=== PATIENT | female | born 1935 | race Caucasian/White ===

== ENCOUNTER 2018-04-21 11:25 | Inpatient (IN) | payer MEDICARE ==
[~2018-04-21] VITALS: Ht 154.9 cm; Wt 52.5 kg
[2018-04-21] VITALS (13 sets, daily range): BP systolic 85–129; BP diastolic 38–55; BMI 19.6
[2018-04-21] MEDS ORDERED: XANAX0.25 MG PO (11:39)
[2018-04-21] MEDS ORDERED: ADVAIR HFA [SP]12 GM INH (11:40)
[2018-04-21] MEDS ORDERED: AMOXICILLIN500 M1 PO (11:40)
[2018-04-21] MEDS ORDERED: BAYER CHEWABLE81 MG PO (11:40)
[2018-04-21] MEDS ORDERED: BACLOFEN10 MG PO (11:40)
[2018-04-21] MEDS ORDERED: CALCIUM 500 +1 EAC3 PO (11:41)
[2018-04-21] MEDS ORDERED: CELEBREX200 MG PO (11:41)
[2018-04-21] MEDS ORDERED: CELEXA40 MG PO (11:41)
[2018-04-21] MEDS ORDERED: FERROUS SULFAT325 MG PO (11:41)
[2018-04-21] MEDS ORDERED: NEURONTIN600 MG PO (11:42)
[2018-04-21] MEDS ORDERED: GAVISCON LIQUI355 ML PO ×2 (11:42→13:51)
[2018-04-21] MEDS ORDERED: IPRAT-ALBUT 0.5-3 ML UPD (11:44)
[2018-04-21] MEDS ORDERED: NORCO 10-325 TA1 TAB PO (11:44)
[2018-04-21] MEDS ORDERED: PRINIVIL10 MG PO (11:47)
[2018-04-21] MEDS ORDERED: MUCUS RELIEF400 MG PO ×2 (11:48→11:50)
[2018-04-21] MEDS ORDERED: MUCINEX600 MG PO (11:49)
[2018-04-21] MEDS ORDERED: MAALOX ADVANCE355 ML PO (11:49)
[2018-04-21] MEDS ORDERED: PATANOL 0.1 % OP5 ML RIGHT EYE (11:50)
[2018-04-21] MEDS ORDERED: SYNTHROID150 MCG PO (11:50)
[2018-04-21] MEDS ORDERED: PREDNISONE20 MG PO (11:51)
[2018-04-21 12:12] LABS: BASOPHILS 0.2 % (0-2); EOSINOPHILS 0 % (0-7); HEMATOCRIT 33.2 % (36.0-48.0); HEMOGLOBIN 10.1 g/dL (12-16); IMMATURE GRANULOCYTES 0.2 % (0-5); LYMPHOCYTES 9.6 % (15-50); MCH 25.8 pg (26.0-34.0); MCHC 30.4 g/dL (31.0-37.0); MCV 84.9 fL (80.0-100.0); MEAN PLATELET VOLUME 8.5 fL (7.4-10.4); PLATELET COUNT 203 10x3/uL (130-400); RBC 3.91 10x6/uL (4.00-5.40); RDW 16.5 % (11.5-14.5); WBC 6.2 10x3/uL (4.8-10.8)
[2018-04-21 12:21] LABS: INR 0.93 (0.85-1.17)
[2018-04-21 12:26] LABS: ALBUMIN 2.7 g/dL (3.4-5.0); ALKALINE PHOSPHATASE 66 U/L (46-116); ALT (SGPT) 20 U/L (10-68); BILIRUBIN - TOTAL 0.26 mg/dL (0.2-1.3); CALC OSMOLALITY 271 mosm/kg (275-300); CALCIUM 8.8 mg/dL (8.5-10.1); CARBON DIOXIDE 31.8 mmol/L (21.0-32.0); CHLORIDE - SERUM 98 mmol/L (98-107); CREATININE - SERUM 0.8 mg/dL (0.6-1.3); GLUCOSE 108 mg/dL (74-106); POTASSIUM - SERUM 4.7 mmol/L (3.5-5.1); PROTEIN - SERUM 6.1 g/dL (6.4-8.2); SODIUM 134 mmol/L (136-145); UREA NITROGEN 22 mg/dL (7-18); eGFR NON AFRICAN AMERICAN 72 mL/min (90-120)
[2018-04-21 12:38] LABS: CKMB 3.3 U/L (0.0-3.6); CREATINE KINASE 34 UL (21-215); TROPONIN-I 0.018 ng/mL (0.000-0.060)
--- NOTE | 2018-04-21 13:36 | NUR ---
PT RECEIVED. ADMITTED. DR AMAYA AND DR QUINTANILLA NOTIFIED. ASSESSMENT COMPLETE PER FLOW SHEET. WILL CONTINUE TO MONITOR
--- NOTE | 2018-04-21 13:59 | NUR ---
PT FAMILY CALLED GIVEN UPDATE. STATED WAS ON THE WAY TO THE HOSPITAL AT THIS TIME AND BRINGING DNR PAPERWORK
--- NOTE | 2018-04-21 14:30 | NUR ---
FAMILY AT BEDSIDE. GIVEN UPDATE. COPY OF WILL PLACED IN CHART PT FULL CODE AT THIS TIME.
--- NOTE | 2018-04-21 15:40 | NUR ---
REASSESSMENT COMPLETE PER FLOW SHEET. VSS. NO NEW CHANGES
--- NOTE | 2018-04-21 16:12 | MORECARE ---
CASE MANAGEMENT DISCHARGE SUMMARY PATIENT: NILA HARDEN UNIT: [id number] ADM DATE: 04/21/18 AGE: 82 : 33 SEX: F ROOM/BED: D.2315 AUTHOR: RERE BAIRES PHYSICIAN: REFERRING PHYSICIAN: KARRI AMAYA MD DATE OF SERVICE: 04/21/18 Discharge Plan Patient Name: NILA HARDEN Facility: [facility]:[place] : 1935 Planned Disposition: Anticipated Discharge Date: Discharge Date: Expected LOS: Initial Reviewer: [email or web address] Initial Review Date: 04/21/2018 Generated: 04/21/18 5:12 pm Patient Name: NILA HARDEN Page [id number] at 1612 All edits/amendments must be made on the electronic document DICTATION DATE: 04/21/18 1612 METAL NEUTRALIZER: CODI 04/21/18 161 RPT#: [id number] DC DATE: STATUS: ADM IN [facility] [address] [place] [address] END OF REPORT
--- NOTE | 2018-04-21 16:45 | MORECARE ---
CASE MANAGEMENT DISCHARGE SUMMARY PATIENT: NILA HARDEN UNIT: [id number] ADM DATE: 04/21/18 AGE: 82 : 33 SEX: F ROOM/BED: D.2315 AUTHOR: RERE BAIRES PHYSICIAN: REFERRING PHYSICIAN: KARRI AMAYA MD DATE OF SERVICE: 04/21/18 Discharge Plan Patient Name: NILA HARDEN Facility: [facility]:[place] : 1935 Planned Disposition: Anticipated Discharge Date: Discharge Date: Expected LOS: Initial Reviewer: [email or web address] Initial Review Date: 04/21/2018 Generated: 04/21/18 5:45 pm Comments DCP- Discharge Planning Updated by [email or web address]: Ana Zhu on 04/21/18 3:[address] CM attempted to meet with patient for intake assessment. Patient is currently on ventilator sedated and no family available at this time. CM will continue to follow and assist as needed with discharge planning/ needs. Last DP export: 04/21/18 3:12 p Patient Name: NILA HARDEN Page 71551 at 1645 All edits/amendments must be made on the electronic document DICTATION DATE: 04/21/181644 DIGITAL PRODUCT SPECIALIST: CODI 04/21/181644 RPT#: [id number] DC DATE: STATUS: ADM IN [facility] [address] [place] [address] END OF REPORT
--- NOTE | 2018-04-21 18:40 | NUR ---
UPPER PARTIAL DENTURE REMOVED PLACED IN RETAINER CUP AT BEDSIDE. UNABLE TO REMOVE BOTTOM DENTURE R/T ETT
--- NOTE | 2018-04-21 18:59 | NUR ---
ASSESSMENT COMPLETE PER FLOW SHEET. VSS. NO NEW CHANGES O2 VIA VENT 40% ORAL ENDOTRACH CARE ADM. WILL CONTINUE TO MONITOR
[2018-04-22] VITALS (26 sets, daily range): BP systolic 85–153; BP diastolic 46–78; Ht 154.9 cm; Wt 52.5 kg
[2018-04-22 04:54] LABS: BASOPHILS 0.2 % (0-2); EOSINOPHILS 0 % (0-7); HEMOGLOBIN 8.2 g/dL (12-16); IMMATURE GRANULOCYTES 0.2 % (0-5); LYMPHOCYTES 10.5 % (15-50); MCH 25.8 pg (26.0-34.0); MCHC 31.1 g/dL (31.0-37.0); MEAN PLATELET VOLUME 8.5 fL (7.4-10.4); MONOCYTES 8.8 % (2-11); NEUTROPHILS 80.3 % (40-80); PLATELET COUNT 210 10x3/uL (130-400); RBC 3.18 10x6/uL (4.00-5.40); RDW 16.6 % (11.5-14.5); WBC 4.7 10x3/uL (4.8-10.8)
[2018-04-22 05:04] LABS: HEMATOCRIT 26.4 % (36.0-48.0)
[2018-04-22 05:06] LABS: ALKALINE PHOSPHATASE 45 U/L (46-116); BILIRUBIN - TOTAL 0.22 mg/dL (0.2-1.3); CALC OSMOLALITY 270 mosm/kg (275-300); CALCIUM 7.8 mg/dL (8.5-10.1); CARBON DIOXIDE 29.5 mmol/L (21.0-32.0); CHLORIDE - SERUM 98 mmol/L (98-107); CREATININE - SERUM 0.7 mg/dL (0.6-1.3); GLUCOSE 89 mg/dL (74-106); MAGNESIUM - SERUM 1.4 mg/dL (1.8-2.4); PHOSPHOROUS 3.5 mg/dL (2.5-4.9); POTASSIUM - SERUM 4.8 mmol/L (3.5-5.1); PRO BNP 1016 pg/mL (0-450); PROTEIN - SERUM 4.8 g/dL (6.4-8.2); SODIUM 134 mmol/L (136-145); UREA NITROGEN 25 mg/dL (7-18); eGFR NON AFRICAN AMERICAN 84 mL/min (90-120)
[2018-04-22 05:07] LABS: ALBUMIN 1.9 g/dL (3.4-5.0); ALT (SGPT) 14 U/L (10-68)
--- NOTE | 2018-04-22 10:00 | NUR ---
0700 CALM WHILE ON VENT OF 40% O2 PROPOFOL AT 25MCG/MIN ASSESSMENT COMPLETE
--- NOTE | 2018-04-22 10:02 | NUR ---
0900 SON AT BEDSIDE PROVIDED UPDAT0. 0900 PATIENTS SON AT BEDSIDE UPDATE GIVEN PER HIS REQUEST EMOTIONAL SUPPORT PROVIDED STATES HE WILL RETURN AROUND NOON TO SPEAK WITH DR QUINTANILLA AND NOTE MOTHERS PROGRESS
--- NOTE | 2018-04-22 12:10 | NUR ---
1100 REPOSITIONED IN BED
--- NOTE | 2018-04-22 12:10 | NUR ---
1200 DR QUINTANILLA MAKING CHANGES ON VENT SIMV 14 FIO2 30% TV 450 PS 10 P 5
--- NOTE | 2018-04-22 12:11 | NUR ---
1211 DOPPLER STUDY OF BLE IN PROGRESS
--- NOTE | 2018-04-22 13:31 | NUR ---
1300 DR QUINTANILLA SPEAKING WITH SON
--- NOTE | 2018-04-22 21:37 | NUR ---
REPOSITIONED FOR COMFORT. ORAL CARE PROVIDED.
[2018-04-22 21:55] LABS: APPEARANCE CLEAR (CLEAR); BILIRUBIN NEGATIVE (NEGATIVE); COLOR YELLOW (YELLOW); GLUCOSE NEGATIVE (NEGATIVE); KETONE NEGATIVE (NEGATIVE); NITRITE NEGATIVE (NEGATIVE); PROTEIN TRACE mg/dL (NEGATIVE); SPECIFIC GRAVITY 1.015 (1.005-1.020); UROBILINOGEN NORMAL (NORMAL)
--- NOTE | 2018-04-22 23:07 | NUR ---
REASSESSMENT COMPLETE. REPOSITIONED FOR COMFORT. ORAL CARE PROVIDED. SAFETY MEASURES IN PLACE.
[2018-04-23] VITALS (24 sets, daily range): BP systolic 101–175; BP diastolic 47–78
--- NOTE | 2018-04-23 02:49 | NUR ---
COMPLETE BED BATH GIVEN. LINENS CHANGED. BLACK COLORED BM NOTED. FORMED. TOLERATED WELL. ORAL CARE PROVIDED.
[2018-04-23 04:28] LABS: BASOPHILS 0.2 % (0-2); EOSINOPHILS 0.4 % (0-7); HEMATOCRIT 24.8 % (36.0-48.0); HEMOGLOBIN 7.8 g/dL (12-16); IMMATURE GRANULOCYTES 0.2 % (0-5); LYMPHOCYTES 22.6 % (15-50); MCH 25.8 pg (26.0-34.0); MCHC 31.5 g/dL (31.0-37.0); MCV 82.1 fL (80.0-100.0); MEAN PLATELET VOLUME 8.3 fL (7.4-10.4); NEUTROPHILS 63.6 % (40-80); PLATELET COUNT 182 10x3/uL (130-400); RBC 3.02 10x6/uL (4.00-5.40); RDW 17.2 % (11.5-14.5); WBC 4.5 10x3/uL (4.8-10.8)
[2018-04-23 04:42] LABS: CALC OSMOLALITY 266 mosm/kg (275-300); CARBON DIOXIDE 28.4 mmol/L (21.0-32.0); CHLORIDE - SERUM 99 mmol/L (98-107); CREATININE - SERUM 0.7 mg/dL (0.6-1.3); MAGNESIUM - SERUM 1.7 mg/dL (1.8-2.4); POTASSIUM - SERUM 4.2 mmol/L (3.5-5.1); SODIUM 133 mmol/L (136-145); UREA NITROGEN 21 mg/dL (7-18); eGFR NON AFRICAN AMERICAN 84 mL/min (90-120)
[2018-04-23 04:43] LABS: GLUCOSE 70 mg/dL (74-106)
--- NOTE | 2018-04-23 09:31 | NUR ---
0700 ASSESSMENT COMPLETE NO DISTRESS NOTED REMAINS ON VENT AT AT 30% PROPOFOL INFUSIONG AT 35
--- NOTE | 2018-04-23 09:33 | NUR ---
0900 SON AT BEDSIDE ASKING FOR UPDATE ASNWERED ALL FAMILY QUESTIONS
--- NOTE | 2018-04-23 12:27 | NUR ---
DR. QUINTANILLA AT BEDSIDE, UPDATE GIVEN TO FAMILY
--- NOTE | 2018-04-23 14:29 | MORECARE ---
CASE MANAGEMENT DISCHARGE SUMMARY PATIENT: NILA HARDEN UNIT: [id number] ADM DATE: 04/21/18 AGE: 82 : 33 SEX: F ROOM/BED: D.2315 AUTHOR: RERE BAIRES PHYSICIAN: REFERRING PHYSICIAN: KARRI AMAYA MD DATE OF SERVICE: 04/23/18 Discharge Plan Patient Name: NILA HARDEN Facility: [facility] : 1935 Planned Disposition: Anticipated Discharge Date: Discharge Date: Expected LOS: Initial Reviewer: [email or web address] Initial Review Date: 04/23/2018 Generated: 04/23/18 3:29 pm Comments DCP- Discharge Planning Updated by [email or web address]: Ana Zhu on 04/21/18 3:[address] CM attempted to meet with patient for intake assessment. Patient is currently on ventilator sedated and no family available at this time. CM will continue to follow and assist as needed with discharge planning/ needs. DCPIA - Discharge Planning Initial Assessment Updated by [email or web address]: Ana Zhu on 04/23/18 2:26 pm * Is the patient Alert and Oriented? Yes * How many steps to enter\exit or inside your home? * PCP Dr. Garcia - [place] * Pharmacy [facility] * Preadmission Environment Home Alone * ADLs Independent * Other Equipment walker, cane, home 02, nebulizer, * List name and contact numbers for known caregivers / representatives who currently or will assist patient after discharge: Wm Tonya [facility] [phone] Hai Tonya [facility] [phone] * Verbal permission to speak to the caregivers and representatives has been obtained from the patient. N/A * Community resources currently utilized Home Health * Please name any agencies selected above. [facility] * Additional services required to return to the preadmission environment? No * Can the patient safely return to the preadmission environment? Yes * Has this patient been hospitalized within the prior 30 days at any hospital? No Last DP export: 04/21/18 3:45 p Patient Name: NILA AHRDEN Page 24919 at 1429 All edits/amendments must be made on the electronic document DICTATION DATE: 04/23/181428 [employer]: CODI 04/23/181428 RPT#: [id number] DC DATE: STATUS: ADM IN [facility] [address] [place] [address] END OF REPORT
--- NOTE | 2018-04-23 14:40 | MORECARE ---
CASE MANAGEMENT DISCHARGE SUMMARY PATIENT: NILA HARDEN UNIT: [id number] ADM DATE: 04/21/18 AGE: 82 : 33 SEX: F ROOM/BED: D.2315 AUTHOR: DEQUAN,DOC PHYSICIAN: REFERRING PHYSICIAN: KARRI AMAYA MD DATE OF SERVICE: 04/23/18 Discharge Plan Patient Name: NILA HARDEN Facility: [facility]:[place] : 1935 Planned Disposition: Anticipated Discharge Date: Discharge Date: Expected LOS: Initial Reviewer: [email or web address] Initial Review Date: 04/23/2018 Generated: 04/23/18 3:40 pm Comments DCP- Discharge Planning Updated by [email or web address]: Ana Zhu on 04/23/18 1:[address] Patient Name: NILA HARDEN Admission Status: ER Accout number: [id number] Admission Date: 04-21-2018 : 1935 Admission Diagnosis: Attending: KARRI AMAYA Current LOS: 2 Anticipated DC Date: Planned Disposition: Primary Insurance: MEDICARE A & B Discharge Planning Comments: CM met with patient's son Wm Harden [phone] at bedside. Patient is currently still on ventilator and sedated. Wm stated that patient does live alone and has an assistant infant toddler teacher that stays with her around the clock. He states that the assistant infant toddler teacher is there for house cleaning and to assist with fall prevention. Wm states that she has [facility] that comes out and sets up meds. He is interested in possible in nursing care / skilled care. He stated that patient was in [facility] about 6 weeks ago for pain management. Patient may need SNF upon discharge. CM will continue to monitor and assist as needed with discharge planning / needs. Pier Hand: Ana Zhu DCP- Discharge Planning Updated by [email or web address]: Ana Zhu on 04/21/18 3:[address] CM attempted to meet with patient for intake assessment. Patient is currently on ventilator sedated and no family available at this time. CM will continue to follow and assist as needed with discharge planning/ needs. DCPIA - Discharge Planning Initial Assessment Updated by [email or web address]: Ana Zhu on 04/23/18 2:26 pm * Is the patient Alert and Oriented? Yes * How many steps to enter\exit or inside your home? * PCP Dr. Garcia - [place] * Pharmacy [facility] * Preadmission Environment Home Alone * ADLs Independent * Other Equipment walker, cane, home 02, nebulizer, * List name and contact numbers for known caregivers / representatives who currently or will assist patient after discharge: Wm Harden - val[place] - [phone] Hai shaw- [phone] * Verbal permission to speak to the caregivers and representatives has been obtained from the patient. N/A * Community resources currently utilized Home Health * Please name any agencies selected above. [facility] * Additional services required to return to the preadmission environment? No * Can the patient safely return to the preadmission environment? Yes * Has this patient been hospitalized within the prior 30 days at any hospital? No Last DP export: 04/23/18 1:29 p Patient Name: NILA HARDEN Page [id number] at 1440 All edits/amendments must be made on the electronic document DICTATION DATE: 04/23/181438 AUTOMOTIVE REFINISH TECHNICIAN: CODI 04/23/18 143 RPT#: [id number] DC DATE: STATUS: ADM IN [facility] [address] [place] [address] END OF REPORT
--- NOTE | 2018-04-23 16:39 | EC ---
PATIENT:NILA HARDEN DATE OF SERVICE: 04/21/18 SEX: F MEDICAL RECORD: [id number] DATE OF : [birth year] [facility]ATION:[facility] AGE OF PATIENT: 82 ADMISSION DATE: 04/21/18 REFERRING PHYSICIAN: INTERPRETING PHYSICIAN: SARAH HARDY MD ECHOCARDIOGRAM REPORT ECHO CHARGES 4 ECHO COMPLETE Date: 04/22/18 CLINICAL DIAGNOSIS: SOB ECHOCARDIOGRAPHIC MEASUREMENTS (adult normal given) AC root (d.<3.7cm) 3.3 cm LV Septum d (<1.2 cm> 1.2 cm Valve Excursion 1.4 cm LV Septum (systole) 1.4 cm Left Atria (s.<4.0cm> 3.0 cm LVPW d(<1.2cm) 1.0 cm RV (d.<2.3cm) 2.7 cm LVPW (sytole) 1.0 cm LV diastole(<5.6CM) 3.6 cm MV E-F(>70mm/sec) cm LV systole 2.8 cm LVOT Diameter 1.4 cm MV exc.(>10mm) cm Est.ejection fraction (50-75%) % DOPPLER: LVIT cm/sec A 142 cm/sec E 109 cm/sec LA cm/sec RVSP 36.5 mmHg LVOT 122 cm/sec AOP1/2T m/s Asc. Ao 159 cm/sec RVOT 82 cm/sec RA cm/sec PA 94 cm/sec AV Gradient Peak 10.1 mmHg AV Mean 5.2 mmHg AV Area 1.4 cm MV Gradient Peak 8.8 mmHg MV Mean 4.5 mmHg MV Area cm COMMENTS: Filenet Admin: Stalin HAMILTON Body Service Team Member: Mohamud Hardy TAPE# PACS Pericardial Effusion N DATE OF SERVICE: 04/22/2018 FINDINGS: 1. Left ventricular chamber size is within normal limits. Left ventricular systolic function is normal. Overall ejection fraction is estimated at 60%. 2. Left atrium, right atrium, and right ventricle chamber sizes are within normal limit. 3. Valvular structures have normal structure and motion. 4. Doppler interrogation reveals only trace tricuspid regurgitation. No other valvular insufficiency or stenosis. Pulmonary systolic pressure is normal, ECHOCARDIOGRAM REPORT [id number] NILA HARDEN estimated at 36 mmHg. 5. No evidence of pericardial effusion or left ventricular thrombus. TRANSINT:[id number] Voice Confirmation ID: [id number] DOCUMENT ID: [id number] SARAH HARDY MD at 1639 CC: [id number] DICTATION DATE: 04/22/18 1618 PHYSIOTHERAPIST'S ASSISTANT: 04/22/18 1808 ADM IN [place] [id number] [place] [address]
--- NOTE | 2018-04-23 19:38 | NUR ---
1420 FAMILY AT BEDSIDE EMOTIONAL SUPPORT GIVEN
--- NOTE | 2018-04-23 19:39 | NUR ---
8560 DR LAM RECOMMENDS NO TO WEAN OFF VENT TODAY
--- NOTE | 2018-04-23 19:40 | NUR ---
1820 SMALL DARK STOOL NOTED SPECIMEN SENT TO LAB.
--- NOTE | 2018-04-23 22:40 | NUR ---
LAB CALLED, INFORMED 1 UNIT PRBC'S READY FOR PT
[2018-04-24] VITALS (24 sets, daily range): BP systolic 109–176; BP diastolic 47–78
--- NOTE | 2018-04-24 | NUR ---
PT HAD x1 DARK GREEN SEMISOLID BM, PARTIAL BATH AND COMPLETE LINEN CHANGE, VSS, WILL CONTINUE TO ASSESS
--- NOTE | 2018-04-24 03:00 | NUR ---
REASSESSMENT COMPLETED PER FLOW SHEET, PT OPENS EYES AND FOLLOWS COMMANDS, NO DISTRESS NOTED, VSS, WILL CONTINUE TO MONITOR
[2018-04-24 05:12] LABS: BASOPHILS 0.4 % (0-2); EOSINOPHILS 0.4 % (0-7); HEMATOCRIT 30.8 % (36.0-48.0); HEMOGLOBIN 10.3 g/dL (12-16); IMMATURE GRANULOCYTES 0.2 % (0-5); LYMPHOCYTES 26.5 % (15-50); MCH 26.8 pg (26.0-34.0); MCHC 33.4 g/dL (31.0-37.0); MCV 80.2 fL (80.0-100.0); MEAN PLATELET VOLUME 8.7 fL (7.4-10.4); MONOCYTES 15.7 % (2-11); NEUTROPHILS 56.8 % (40-80); PLATELET COUNT 185 10x3/uL (130-400); RBC 3.84 10x6/uL (4.00-5.40); RDW 16.7 % (11.5-14.5); WBC 5.3 10x3/uL (4.8-10.8)
[2018-04-24 05:30] LABS: CALC OSMOLALITY 263 mosm/kg (275-300); CALCIUM 7.9 mg/dL (8.5-10.1); CHLORIDE - SERUM 96 mmol/L (98-107); CREATININE - SERUM 0.6 mg/dL (0.6-1.3); GLUCOSE 83 mg/dL (74-106); POTASSIUM - SERUM 4.6 mmol/L (3.5-5.1); SODIUM 131 mmol/L (136-145); UREA NITROGEN 18 mg/dL (7-18); eGFR NON AFRICAN AMERICAN > 90 mL/min (90-120)
--- NOTE | 2018-04-24 07:30 | NUR ---
0700 ROUNDING ON PATIENT ASSESSMENT COMPLETE PROPOFOL INFUSING AT 35MCG/MIN NO DISTRESS NOTED
--- NOTE | 2018-04-24 07:48 | NUR ---
0730 DECREASED PROPOFOL TO 20MCG OR 5.5ML
--- NOTE | 2018-04-24 08:28 | NUR ---
6496 UPDATED SON, SAMMY, VIA PHONE ON CHANGES IN HIS MOTHERS CONDITION. INFORMED HIM OF PLANS CONCERNING VENT. SAID HE WILL NOT BE ABLE TO VISIT TODAY AND TO LET HIS MOTHER KNOW
--- NOTE | 2018-04-24 09:25 | NUR ---
0930 TURNED OFF SEDATION PER RT REQUEST
--- NOTE | 2018-04-24 09:27 | NUR ---
0927 CPAP TRIAL BGCAN ON VENT. VENT SET ON SPONTANIOUS PROPOFOL REMAINS OFF
--- NOTE | 2018-04-24 10:01 | NUR ---
NUTRITION F/U NURSING REPORTS PT TOLERATING PULMOCARE @ 30 CC/HR. REMAINS ON VENT. WILL CONTINUE TO MONITOR PT PROGRESS. RD FOLLOWING
--- NOTE | 2018-04-24 11:54 | NUR ---
1100 DR LAM ROUNDING ON PATIENT NOTING RESULTS OF CCPAP
--- NOTE | 2018-04-24 14:29 | NUR ---
1300 REMAIINS CALM ON CPAP BREATHING 16 BREATHS/MIN
--- NOTE | 2018-04-24 16:02 | NUR ---
1600 TURNED OFF SEDATION PER RESP TECH REQUEST. VENT NOW ON SPONTANIOUS
--- NOTE | 2018-04-24 18:28 | NUR ---
1630 TURNED SEDATION BACK ON. VENT SWITCHED TO SIMV AT 30%
--- NOTE | 2018-04-24 18:30 | NUR ---
1800 FAMILY MEMBER LEFT THE UNIT
--- NOTE | 2018-04-24 21:00 | NUR ---
vss no s/s of distress, meds given, pt had 10 residuals, will turn tf up at midnight to 40/ml which is goal rate. assessment is complete, all safety measures in place will contiue to monitor and will note and chart any changes.
[2018-04-25] VITALS (24 sets, daily range): BP systolic 113–166; BP diastolic 46–94
--- NOTE | 2018-04-25 00:02 | NUR ---
vss no s/s of distress, all safety measures in place, pt suctioned, all needs met at this time will continue to monitor.
--- NOTE | 2018-04-25 01:24 | NUR ---
vss no s/s of distress, pt tolerating vent well. all safety measures remain in place. will continue to monitor.
--- NOTE | 2018-04-25 04:53 | NUR ---
no changes, pt resting well and tolerating vent well, positioned for comfort, no changes with vent settings. will continue to monitor.
--- NOTE | 2018-04-25 06:00 | NUR ---
pt resting well no s/s of distress, diprovan on hold, residuals 10ml and returned, all needs met will continue to monitor.
--- NOTE | 2018-04-25 09:27 | NUR ---
NUTRITION F/U PT REMAINS ON VENT, DIPRIVAN AND TUBE FEEDS OFF FOR POSSIBLE EXTUBATION. WILL CONTINUE TO MONITOR PT PROGRESS. PROVIDE TUBE FEEDS IF RESUMED. RD FOLLOWING
--- NOTE | 2018-04-25 09:34 | NUR ---
0700 PT RECIEVED ALERT AND ABLE TO FOLLOW COMMANDS, ON VENT, SPONTANOUS MODE, OGT WITH PULMOCARE INFUSING, L AND R WRIST PIV IN PLACE WITH LR 50ML/HR, MADISON DRAINING YELLOW URINE, ABLE TO ANSWER YES AND NO QUESTIONS BY NODDING HEAD, DENIES PAIN, CALL LIGHT WITHIN REACH, REPOSITIONED 0900 REPOSITIONED, SPOKE WITH CHAVEZ IN PHARMACY FOR VANC 0930 RECIEVED VANC FROM PHARMACY
--- NOTE | 2018-04-25 13:25 | NUR ---
1100 [id number] EXTUBATED TO 3L NC AND RESTRAINTS REMOVED, FAMILY HERE FOR VISITATION AND UPDATED BY DR QUINTANILLA
--- NOTE | 2018-04-25 17:16 | NUR ---
1500 REPOSITIONED, TOLERATING CLEAR LIQUIDS WELL 1700 ATE 75% OF FULL LIQUID DINNER WITH NO DIFFICULTIES, REPOSITIONED
--- NOTE | 2018-04-25 18:41 | NUR ---
PT STATES SHE HIT L WRIST IV ON SIDE RAIL, BEGAN BLEEDING, IV DCD, DRESSING APPLIED, BATH AND LINEN CHANGE DONE
--- NOTE | 2018-04-25 22:36 | NUR ---
VSS NO S/S OF DISTRESS CALL LIGHT IN REACH, PT STATES SHE IS SCARED TO GO TO SLEEP BECAUSE SHE IS AFRAID SHE WILL STOP BREATHING, I REASSURED PT SHE WAS BEING MONITORED VERY CLOSELY AND ALARMS WOULD GO OFF TO NOTIFY ID HER OXYGEN LEVEL STARTED TO DROP, PT STATED THAT MAKES HER FEEL GOOD. MEDS WERE GIVEN, ASSESSMENT IS COMPLETE, ALL SAFETY MEASURES IN PLACE, WILL NOTE AND CHART ANY CHANGES.
[2018-04-26] VITALS (16 sets, daily range): BP systolic 109–187; BP diastolic 52–95
[2018-04-26 04:00] LABS: BASOPHILS 0 % (0-2); EOSINOPHILS 0 % (0-7); HEMOGLOBIN 10.5 g/dL (12-16); IMMATURE GRANULOCYTES 0.2 % (0-5); MCH 26.1 pg (26.0-34.0); MCHC 31.8 g/dL (31.0-37.0); MCV 82.1 fL (80.0-100.0); MEAN PLATELET VOLUME 8.2 fL (7.4-10.4); MONOCYTES 5.3 % (2-11); NEUTROPHILS 78.5 % (40-80); PLATELET COUNT 216 10x3/uL (130-400); RBC 4.02 10x6/uL (4.00-5.40); RDW 16.8 % (11.5-14.5); WBC 4.9 10x3/uL (4.8-10.8)
[2018-04-26 04:15] LABS: CALC OSMOLALITY 267 mosm/kg (275-300); CALCIUM 8.3 mg/dL (8.5-10.1); CARBON DIOXIDE 31.8 mmol/L (21.0-32.0); CHLORIDE - SERUM 99 mmol/L (98-107); CREATININE - SERUM 0.7 mg/dL (0.6-1.3); GLUCOSE 98 mg/dL (74-106); MAGNESIUM - SERUM 1.9 mg/dL (1.8-2.4); PHOSPHOROUS 3.7 mg/dL (2.5-4.9); POTASSIUM - SERUM 4.6 mmol/L (3.5-5.1); SODIUM 133 mmol/L (136-145); UREA NITROGEN 19 mg/dL (7-18); eGFR NON AFRICAN AMERICAN 84 mL/min (90-120)
--- NOTE | 2018-04-26 04:23 | NUR ---
pt rested good during the night, electrolytes do not need to be replaced. pt positioned for comfort, lake emptied and iv pumps cleared, will continue to monitor.
--- NOTE | 2018-04-26 09:15 | NUR ---
UP TO CHAIR VAI PT
--- NOTE | 2018-04-26 10:50 | NUR ---
CALLED TO RELAY PATIENTS ELEVATED BP, NO NEW ORDERS AT PRESENT, HE WILL ADDRESS UPON ARRIVAL
--- NOTE | 2018-04-26 11:54 | NUR ---
PATIENT DOES WELL WITH A CLOTH WRAPED AROUND SPOON TO INCREASE GIRTH OF HANDLE, CALLED PT TO SEE IF THEY HAVE ACCESS TO MODIFIED EATING EQUIPMENT.
--- NOTE | 2018-04-26 17:44 | NUR ---
REPORT CALLED TO MED III NURSE
--- NOTE | 2018-04-26 17:48 | NUR ---
ATTEMPTED TO CALL SAMMY HARDEN ON CONTACT LIST, MAILBOX FULL AND COULD NOT LEAVA A MESSAGE TO TELL HIM PATIENT MOVING TO NEW ROOM
--- NOTE | 2018-04-26 18:15 | NUR ---
RECIEVED TO ROOM 1202 FROM ICU VIA BED. IV TO R HAND PATENT. O2 3L NC IN USE. MADISON PATENT DRAINING PINKISH COLORED URINE. SCD'S IN USE TO BILAT LEGS. CALL LIGHT WITHIN REACH. DENIES ANY NEEDS AT THIS TIME.
--- NOTE | 2018-04-26 19:29 | NUR ---
PATIENT RESTING IN BED WITH EYES CLOSED AND NO S/S OF DISTRESS. BED IN LOWEST POSITION AND CALL LIGHT WITHIN REACH. ENCOURAGED THE PATIENT TO CALL IF SHE HAS NEEDS. WILL CONTINUE TO MONITOR.
[2018-04-27 04:24] VITALS: BP 121/61
[2018-04-27 06:28] LABS: BASOPHILS 0 % (0-2); EOSINOPHILS 0 % (0-7); HEMATOCRIT 33.2 % (36.0-48.0); HEMOGLOBIN 10.3 g/dL (12-16); IMMATURE GRANULOCYTES 0.1 % (0-5); LYMPHOCYTES 10.2 % (15-50); MCH 26.1 pg (26.0-34.0); MEAN PLATELET VOLUME 8.6 fL (7.4-10.4); MONOCYTES 4.6 % (2-11); NEUTROPHILS 85.1 % (40-80); RBC 3.95 10x6/uL (4.00-5.40); RDW 17.2 % (11.5-14.5)
[2018-04-27 06:50] LABS: MCV 84.1 fL (80.0-100.0); PLATELET COUNT 303 10x3/uL (130-400); WBC 6.8 10x3/uL (4.8-10.8)
[2018-04-27 06:51] LABS: CALC OSMOLALITY 266 mosm/kg (275-300); CALCIUM 8.5 mg/dL (8.5-10.1); CARBON DIOXIDE 33.3 mmol/L (21.0-32.0); CHLORIDE - SERUM 95 mmol/L (98-107); CREATININE - SERUM 0.6 mg/dL (0.6-1.3); GLUCOSE 108 mg/dL (74-106); POTASSIUM - SERUM 4.9 mmol/L (3.5-5.1); SODIUM 131 mmol/L (136-145); UREA NITROGEN 21 mg/dL (7-18); eGFR NON AFRICAN AMERICAN > 90 mL/min (90-120)
--- NOTE | 2018-04-27 07:40 | NUR ---
PT RESTING IN BED EYES CLOSED NO SIGNS OF DISTRESS NOTED, O2 @ 3L ON NASAL CANNULA, FAMILY AT BEDSIDE, EASY RISE AND FALL OF CHEST CL IN REACH
[2018-04-27 08:57] VITALS: BP 131/60
[2018-04-27 11:00] VITALS: BP 131/60
[2018-04-27 15:00] VITALS: BP 131/57
--- NOTE | 2018-04-27 15:40 | NUR ---
DENIES ANY NEEDS AT THIS TIME.
[2018-04-27 19:45] VITALS: BP 100/52
--- NOTE | 2018-04-27 20:48 | NUR ---
PATIENT RESTING IN BED AND DENIES NEEDS AT THIS TIME. ADMINISTERED MEDS PER ORDERS. BED IN LOWEST POSITION AND CALL LIGHT WITHIN REACH. ENCOURAGED THE PATIENT TO CALL IF SHE HAS NEEDS.
--- NOTE | 2018-04-27 23:18 | NUR ---
PATIENT RESTING IN BED WITH EYES CLOSED AND NO S/S OF DISTRESS. WILL CONTINUE TO MONITOR
[2018-04-27 23:55] VITALS: BP 161/70
[2018-04-28 03:55] VITALS: BP 130/49
[2018-04-28 06:55] LABS: BASOPHILS 0 % (0-2); EOSINOPHILS 0.1 % (0-7); HEMATOCRIT 30.2 % (36.0-48.0); HEMOGLOBIN 9.5 g/dL (12-16); IMMATURE GRANULOCYTES 0.3 % (0-5); LYMPHOCYTES 12.8 % (15-50); MCH 26.2 pg (26.0-34.0); MCHC 31.5 g/dL (31.0-37.0); MCV 83.2 fL (80.0-100.0); MEAN PLATELET VOLUME 8.5 fL (7.4-10.4); MONOCYTES 7.9 % (2-11); NEUTROPHILS 78.9 % (40-80); PLATELET COUNT 322 10x3/uL (130-400); RBC 3.63 10x6/uL (4.00-5.40); RDW 17.2 % (11.5-14.5); WBC 7.7 10x3/uL (4.8-10.8)
[2018-04-28 07:09] LABS: CALC OSMOLALITY 267 mosm/kg (275-300); CALCIUM 8.5 mg/dL (8.5-10.1); CARBON DIOXIDE 34.9 mmol/L (21.0-32.0); CHLORIDE - SERUM 95 mmol/L (98-107); CREATININE - SERUM 0.6 mg/dL (0.6-1.3); GLUCOSE 107 mg/dL (74-106); POTASSIUM - SERUM 4.4 mmol/L (3.5-5.1); SODIUM 132 mmol/L (136-145); UREA NITROGEN 21 mg/dL (7-18); eGFR NON AFRICAN AMERICAN > 90 mL/min (90-120)
[2018-04-28 08:35] VITALS: BP 118/55
--- NOTE | 2018-04-28 10:35 | MORECARE ---
CASE MANAGEMENT DISCHARGE SUMMARY PATIENT: NILA HARDEN UNIT: [id number] ADM DATE: 04/21/18 AGE: 82 : 33 SEX: F ROOM/BED: D.1202 AUTHOR: DEQUAN,DOC PHYSICIAN: REFERRING PHYSICIAN: KARRI AMAYA MD DATE OF SERVICE: 04/28/18 Discharge Plan Patient Name: NILA HARDEN Facility: [facility]:[place] : 1935 Planned Disposition: Anticipated Discharge Date: Discharge Date: Expected LOS: Initial Reviewer: [email or web address] Initial Review Date: 04/23/2018 Generated: 04/28/18 11:35 am Comments DCP- Discharge Planning Updated by [email or web address]: Jolynn Palma on 04/28/18 9:[address] WM HARDEN- SON- CONTACT PHONE NUMBER [phone]. DCP- Discharge Planning Updated by [email or web address]: Jolynn Palma on 04/28/18 9:[address] LATE ENTRY 0845 CM RECEIVED 3 MESSAGES FROM WM HARDEN, SON, OF THE PATIENT. RETURNED THE PHONE CALLS HOWEVER HIS VOICE MAIL WAS FULL. CM WENT TO THE PATIENT'S ROOM. HER SON ARRIVED JUST CM ENTERED AND SPOKE WITH THE PATIENT. THE SON WANTED TO DISCUSS HIS MOTHER'S DISCHARGE DATE AND PLAN. CM ADVISED IN REVIEW OF THE LAST MD NOTES NO DATE HAD BEEN DOCUMENTED. HE IS INTERESTED IN A SHELTER SETTING. THE PATIENT HAS BEEN TO [facility]VI[facility].EXPLAINED ACUTE REHAB AND SKILLED REHAB SERVICSE. SON FEELS SKILLED WOULD BE MORE APPROPRIATE AND IN THE [place] ARE[place]. CM PROVIDED THE SON [place] FORM OF REHABS IN [facility] AND IN THE [place] AREA WHERE SHE LIVES. HE WILL ADVISE CM OF HIS CHOICE . CM FOLLOWING TO ASSIST W/ DISCHARGE PLANNING. DCP- Discharge Planning Updated by [email or web address]: Ana Zhu on 04/23/18 1:[address] Patient Name: NILA HARDEN Admission Status: ER Accout number: [id number] Admission Date: 04-21-2018 : 1935 Admission Diagnosis: Attending: KARRI AMAYA Current LOS: 2 Anticipated DC Date: Planned Disposition: Primary Insurance: MEDICARE A & B Discharge Planning Comments: CM met with patient's son Wm Harden [phone] at bedside. Patient is currently still on ventilator and sedated. Wm stated that patient does live alone and has an showroom sales assistant that stays with her around the clock. He states that the showroom sales assistant is there for house cleaning and to assist with fall prevention. Wm states that she has [facility] that comes out and sets up meds. He is interested in possible in nursing care / skilled care. He stated that patient was in [facility] about 6 weeks ago for pain management. Patient may need SNF upon discharge. CM will continue to monitor and assist as needed with discharge planning / needs. Cushion Former: Ana Zhu DCP- Discharge Planning Updated by [email or web address] Zhu on 04/21/18 3:[address] CM attempted to meet with patient for intake assessment. Patient is currently on ventilator sedated and no family available at this time. CM will continue to follow and assist as needed with discharge planning/ needs. DCPIA - Discharge Planning Initial Assessment Updated by [email or web address]: Ana Zhu on 04/23/18 2:26 pm * Is the patient Alert and Oriented? Yes * How many steps to enter\exit or inside your home? * PCP Dr. Garcia - [place] * Pharmacy [facility] * Preadmission Environment Home Alone * ADLs Independent * Other Equipment walker, cane, home 02, nebulizer, * List name and contact numbers for known caregivers / representatives who currently or will assist patient after discharge: Wm shaw - [phone] Hai shaw- [phone] * Verbal permission to speak to the caregivers and representatives has been obtained from the patient. N/A * Community resources currently utilized Home Health * Please name any agencies selected above. [facility] * Additional services required to return to the preadmission environment? No * Can the patient safely return to the preadmission environment? Yes * Has this patient been hospitalized within the prior 30 days at any hospital? No Last DP export: 04/23/18 1:40 p Patient Name: NILA HARDEN Page [phone] at 1035 All edits/amendments must be made on the electronic document DICTATION DATE: 04/28/18 103 WEBSPHERE PORTAL ARCHITECT: CODI 04/28/18 1034 RPT#: [id number] DC DATE: STATUS: ADM IN [facility] [address] [place] [address] END OF REPORT
[2018-04-28 11:38] VITALS: BP 112/58
--- NOTE | 2018-04-28 14:16 | NUR ---
RN ROUNDING DONE WITH PATIENT RESTING WITH EYES CLOSED, RESP ARE EVEN AND NON LABORED. P.T HERE NOW TO WORK WITH PATIENT.
--- NOTE | 2018-04-28 15:20 | NUR ---
SPOKE TO DR CHAMBERS VIA TELEPHONE; AUTHORIZED MADISON REMOVAL
[2018-04-28 15:37] VITALS: BP 118/66
--- NOTE | 2018-04-28 19:09 | NUR ---
OT NOTE: PT COMPLETED BED MOB WITH CGA. PT COMPLETED EOB SITTING WITH SBA. PT COMPLETED SIT TO STAND WITH CGA. PT COMPLETED FACE WASH WITH SET UP. PT COMPLETED BUE AROM AT EOB. THANK YOU, TERRY SEGOVIA
[2018-04-28 20:00] VITALS: BP 122/67; BP 85/39
--- NOTE | 2018-04-28 20:07 | NUR ---
PATIENT RESTING IN BED WITH NO S/S OF DISTRESS AND DENIES NEEDS AT THIS TIME. BED IN LOWEST POSITION AND CALL LIGHT WITHIN REACH. ENCOURAGED THE PATIENT TO CALL IF SHE HAS NEEDS. WILL CONTINUE TO MONITOR.
--- NOTE | 2018-04-28 20:30 | NUR ---
PT PLACED ON BEDPAN, VOIDED AND HAD LIQUIDY STOOL, PT REMOVED FROM BEDPAN, PT CLEANED UP, PINK PAD AND BLUE CHUX CHANGED, PT DENIES FURTHR NEEDS OR PAIN, BED IN LOW POSITION, SIDE RAILS X 2, CALL LIGHT IN REACH
[2018-04-29] VITALS (7 sets, daily range): BP systolic 105–126; BP diastolic 52–78
--- NOTE | 2018-04-29 02:05 | NUR ---
PATIENT RESTING IN BED WITH EYES CLOSED AND NO S/S OF DISTRESS. WILL CONTINUE TO MONITOR.
--- NOTE | 2018-04-29 03:40 | NUR ---
MIKY, RESPIRATORY INFORMED ME THAT PT NEEDED TO GET ON THE BEDPAN, THIS RN TO ROOM, PT PLACED ON BEDPAN, PT INST TO USE CALL LIGHT WHEN FINISHED, CALL LIGHT TO HAND
--- NOTE | 2018-04-29 03:50 | NUR ---
PT PRIOR AUTHORIZATION NURSE LIGHT, PT FINISHED, PT REMOVED FROM BEDPAN, ANJALI CARE DONE, PT REPOSITIONED IN BED, VS OBTAINED, DENIES FURTHER NEEDS OR PAIN AT THIS TIME
[2018-04-29 06:58] LABS: BASOPHILS 0 % (0-2); EOSINOPHILS 0 % (0-7); HEMATOCRIT 31.2 % (36.0-48.0); HEMOGLOBIN 9.9 g/dL (12-16); IMMATURE GRANULOCYTES 0.3 % (0-5); LYMPHOCYTES 8.4 % (15-50); MCH 26.3 pg (26.0-34.0); MCHC 31.7 g/dL (31.0-37.0); MEAN PLATELET VOLUME 8.6 fL (7.4-10.4); MONOCYTES 5.6 % (2-11); NEUTROPHILS 85.7 % (40-80); PLATELET COUNT 357 10x3/uL (130-400); RBC 3.76 10x6/uL (4.00-5.40); RDW 17.4 % (11.5-14.5); WBC 8.8 10x3/uL (4.8-10.8)
[2018-04-29 07:32] LABS: ANION GAP 10.4 mmol/L (8-16); CALCIUM 8.6 mg/dL (8.5-10.1); CARBON DIOXIDE 32.4 mmol/L (21.0-32.0); POTASSIUM - SERUM 4.8 mmol/L (3.5-5.1)
[2018-04-29 07:37] LABS: CREATININE - SERUM 0.8 mg/dL (0.6-1.3)
--- NOTE | 2018-04-29 08:23 | NUR ---
PT HERE F0R RESP FAILURE AND PNEUMONIA FOR THIS VISIT PT DENIES NEEDS AT THIS TIME WILL CONTINUE TO MONITOR
--- NOTE | 2018-04-29 10:43 | MORECARE ---
CASE MANAGEMENT DISCHARGE SUMMARY PATIENT: NILA HARDEN UNIT: [id number] ADM DATE: 04/21/18 AGE: 82 : 33 SEX: F ROOM/BED: D.1202 AUTHOR: DEQUAN,DOC PHYSICIAN: REFERRING PHYSICIAN: KARRI AMAYA MD DATE OF SERVICE: 04/29/18 Discharge Plan Patient Name: NILA HARDEN Facility: [facility]:[place] : 1935 Planned Disposition: Anticipated Discharge Date: Discharge Date: Expected LOS: Initial Reviewer: [email or web address] Initial Review Date: 04/23/2018 Generated: 04/29/18 11:43 am Comments DCP- Discharge Planning Updated by [email or web address]: Jodi Pa on 04/29/18 9:[address] Patient Name: NILA HARDEN Admission Status: ER Accout number: [id number] Admission Date: 04-21-2018 : 1935 Admission Diagnosis:ACUTE RESPIRATORY FAILURE WITH HYPOXIA Attending: KARRI AMAYA Current LOS: 8 Anticipated DC Date: Planned Disposition: Primary Insurance: MEDICARE A & B Discharge Planning Comments: CM MET WITH PATIENT AND IM SIGNED. WAITING TO SEE IF ABLE TO GO TO INPT REHAB. PT AND OT EVALS DONE. Grinder Setup Operator: Jodi Pa DCP- Discharge Planning Updated by [email or web address]: Jolynn Palma on 04/28/18 9:[address] WM HARDEN- SON- CONTACT PHONE NUMBER [phone]. DCP- Discharge Planning Updated by [email or web address]: Jolynn Palma on 04/28/18 9:[address] LATE ENTRY 0845 CM RECEIVED 3 MESSAGES FROM WM HARDEN, SON, OF THE PATIENT. RETURNED THE PHONE CALLS HOWEVER HIS VOICE MAIL WAS FULL. CM WENT TO THE PATIENT'S ROOM. HER SON ARRIVED JUST CM ENTERED AND SPOKE WITH THE PATIENT. THE SON WANTED TO DISCUSS HIS MOTHER'S DISCHARGE DATE AND PLAN. CM ADVISED IN REVIEW OF THE LAST MD NOTES NO DATE HAD BEEN DOCUMENTED. HE IS INTERESTED IN A RESIDENTIAL SETTING. THE PATIENT HAS BEEN TO [facility] PREVIOUSLY.EXPLAINED ACUTE REHAB AND SKILLED REHAB SERVICSE. SON FEELS SKILLED WOULD BE MORE APPROPRIATE AND IN THE [place] AREA. CM PROVIDED THE SON WITHTHE POC FORM OF REHABS IN THE [facility] AND IN THE [place] WHERE SHE LIVES. HE WILL ADVISE CM OF HIS CHOICE . CM FOLLOWING TO ASSIST W/ DISCHARGE PLANNING. DCP- Discharge Planning Updated by [email or web address]: Ana Zhu on 04/23/18 1:[address] Patient Name: NILA HARDEN Admission Status: ER Accout number: [id number] Admission Date: 04-21-2018 : 1935 Admission Diagnosis: Attending: KARRI AMAYA Current LOS: 2 Anticipated DC Date: Planned Disposition: Primary Insurance: MEDICARE A & B Discharge Planning Comments: CM met with patient's son Wm Harden [phone] at bedside. Patient is currently still on ventilator and sedated. Wm stated that patient does live alone and has an faculty research assistant that stays with her around the clock. He states that the faculty research assistant is there for house cleaning and to assist with fall prevention. Wm states that she has [facility] that comes out and sets up meds. He is interested in possible in nursing care / skilled care. He stated that patient was in [facility] about 6 weeks ago for pain management. Patient may need SNF upon discharge. CM will continue to monitor and assist as needed with discharge planning / needs. Grinder Setup Operator: Ana Zhu DCP- Discharge Planning Updated by [email or web address]: Ana Zhu on 04/21/18 3:[address] CM attempted to meet with patient for intake assessment. Patient is currently on ventilator sedated and no family available at this time. CM will continue to follow and assist as needed with discharge planning/ needs. DCPIA - Discharge Planning Initial Assessment Updated by [id number]: Ana Zhu on 04/23/18 2:26 pm * Is the patient Alert and Oriented? Yes * How many steps to enter\exit or inside your home? * PCP Dr. Garcia - [place] * Pharmacy [facility] * Preadmission Environment Home Alone * ADLs Independent * Other Equipment walker, cane, home 02, nebulizer, * List name and contact numbers for known caregivers / representatives who currently or will assist patient after discharge: Wm shaw - [phone] Hai shaw- [phone] * Verbal permission to speak to the caregivers and representatives has been obtained from the patient. N/A * Community resources currently utilized Home Health * Please name any agencies selected above. [facility] * Additional services required to return to the preadmission environment? No * Can the patient safely return to the preadmission environment? Yes * Has this patient been hospitalized within the prior 30 days at any hospital? No Coverage Notice Reviewer: [id number] Danielle Pa Notice Issued Date-Time: 04/29/2018 10:38 Notice Type: IM Discharge Notice Notice Delivered To: Patient Relationship to Patient: Self Food Service Attendant Name: Delivery Method: HAND - Hand Delivered Sonam Days: Prior Verbal Notification: Recipient Understood Notice: Yes Recipient Signature: Yes Med Rec Note Co-signed by Attending: Coverage Notice Comment: Last DP export: 04/28/18 9:35 a Patient Name: NILA HARDEN Page [phone] at 1043 All edits/amendments must be made on the electronic document DICTATION DATE: 04/29/18 1042 MINERAL MIXER: CODI 04/29/18 1042 RPT#: [id number] DC DATE: STATUS: ADM IN [facility] [address] [place] [address] END OF REPORT
--- NOTE | 2018-04-29 11:50 | NUR ---
OT NOTE: PT PERFORMED BED MOB WITH MIN/MOD ASSIST TODAY; AMB APPROX 8-10 FT WITH MIN ASSIST, RW, GAIT BELT, AND IV. PT FATIGUES EASILY AND IS CURRENTLY VERY WEAK. SHE WILL BENEFIT FROM CONTINNUED THERAPY. PERFORMED GROOMING TASKS WITH SET UP FROM SEATED POSITION. KIA BURGOS, OTR/L
--- NOTE | 2018-04-29 13:45 | MORECARE ---
CASE MANAGEMENT DISCHARGE SUMMARY PATIENT: NILA HARDEN UNIT: [id number] ADM DATE: 04/21/18 AGE: 82 : 33 SEX: F ROOM/BED: D.1202 AUTHOR: DEQUANDOC PHYSICIAN: REFERRING PHYSICIAN: KARRI AMAYA MD DATE OF SERVICE: 04/29/18 Discharge Plan Patient Name: NILA HARDEN Facility: [facility]:[place] : 1935 Planned Disposition: Anticipated Discharge Date: Discharge Date: Expected LOS: Initial Reviewer: [email or web address] Initial Review Date: 04/23/2018 Generated: 04/29/18 2:45 pm Comments DCP- Discharge Planning Updated by [email or web address]: Jodi Pa on 04/29/18 12:[address] Patient Name: NILA HARDEN Admission Status: ER Accout number: [id number] Admission Date: 04-21-2018 : 1935 Admission Diagnosis:ACUTE RESPIRATORY FAILURE WITH HYPOXIA Attending: KARRI AMAYA Current LOS: 8 Anticipated DC Date: Planned Disposition: Primary Insurance: MEDICARE A & B Discharge Planning Comments: IN PATIENT REHAB WILL ACCEPT WHEN PATIENT CAN BE DISCHARGED. SON IS ZEYAD HARDEN, PHONE [phone], CM CALLED AND LET HIM KNOW. STATES PLAN IS HH AFTER DISCHARGED FROM REHAB. Aquatics Director: Jodi Pa DCP- Discharge Planning Updated by [id number]: Jodi Pa on 04/29/18 9:[address] Patient Name: NILA HARDEN Admission Status: ER Accout number: [id number] Admission Date: 04-21-2018 : 1935 Admission Diagnosis:ACUTE RESPIRATORY FAILURE WITH HYPOXIA Attending: KARRI AMAYA Current LOS: 8 Anticipated DC Date: Planned Disposition: Primary Insurance: MEDICARE A & B Discharge Planning Comments: CM MET WITH PATIENT AND IM SIGNED. WAITING TO SEE IF ABLE TO GO TO INPT REHAB. PT AND OT EVALS DONE. Aquatics Director: Jodi Pa DCP- Discharge Planning Updated by [email or web address]: Jolynn Palma on 04/28/18 9:[address] WM HARDEN- SON- CONTACT PHONE NUMBER [phone]. DCP- Discharge Planning Updated by [email or web address]: Jolynn Palma on 04/28/18 9:[address] LATE ENTRY 0845 CM RECEIVED 3 MESSAGES FROM WM HARDEN, SON, OF THE PATIENT. RETURNED THE PHONE CALLS HOWEVER HIS VOICE MAIL WAS FULL. CM WENT TO THE PATIENT'S ROOM. HER SON ARRIVED JUST CM ENTERED AND SPOKE WITH THE PATIENT. THE SON WANTED TO DISCUSS HIS MOTHER'S DISCHARGE DATE AND PLAN. CM ADVISED IN REVIEW OF THE LAST MD NOTES NO DATE HAD BEEN DOCUMENTED. HE IS INTERESTED IN A HALF-WAY SETTING. THE [facility]EXPLAINED ACUTE REHAB AND SKILLED REHAB SERVICSE. SON FEELS SKILLED WOULD BE MORE APPROPRIATE AND IN THE [place] AREA. CM PROVIDED THE SON WITHTHE POC FORM OF REHABS IN THE [facility] AND IN THE [facility] WHERE SHE LIVES. HE WILL ADVISE CM OF HIS CHOICE . CM FOLLOWING TO ASSIST W/ DISCHARGE PLANNING. DCP- Discharge Planning Updated by [id number]: Ana Zhu on 04/23/18 1:[address] Patient Name: NILA HARDEN Admission Status: ER Accout number: [id number] Admission Date: 04-21-2018 : 1935 Admission Diagnosis: Attending: KARRI AMAYA Current LOS: 2 Anticipated DC Date: Planned Disposition: Primary Insurance: MEDICARE A & B Discharge Planning Comments: CM met with patient's son Wm Harden [phone] at bedside. Patient is currently still on ventilator and sedated. Wm stated that patient does live alone and has an assistant womens volleyball coach that stays with her around the clock. He states that the assistant womens volleyball coach is there for house cleaning and to assist with fall prevention. Wm states that she has [facility] that comes out and sets up meds. He is interested in possible in nursing care / skilled care. He stated that [facility] for pain management. Patient may need SNF upon discharge. CM will continue to monitor and assist as needed with discharge planning / needs. Aquatics Director: Ana Zhu DCP- Discharge Planning Updated by [id number]: Ana Zhu on 04/21/18 3:[address] CM attempted to meet with patient for intake assessment. Patient is currently on ventilator sedated and no family available at this time. CM will continue to follow and assist as needed with discharge planning/ needs. DCPIA - Discharge Planning Initial Assessment Updated by [email or web address]: Ana Zhu on 04/23/18 2:26 pm * Is the patient Alert and Oriented? Yes * How many steps to enter\exit or inside your home? * PCP Dr. Garcia - [place] * Pharmacy [facility] * Preadmission Environment Home Alone * ADLs Independent * Other Equipment walker, cane, home 02, nebulizer, * List name and contact numbers for known caregivers / representatives who currently or will assist patient after discharge: Wm Harden valeria [phone] Hai Harden valeria- [phone] * Verbal permission to speak to the caregivers and representatives has been obtained from the patient. N/A * Community resources currently utilized Home Health * Please name any agencies selected above. [facility] * Additional services required to return to the preadmission environment? No * Can the patient safely return to the preadmission environment? Yes * Has this patient been hospitalized within the prior 30 days at any hospital? No Coverage Notice Reviewer: [id number] Danielle Pa Notice Issued Date-Time: 04/29/2018 10:38 Notice Type: IM Discharge Notice Notice Delivered To: Patient Relationship to Patient: Self Quality Assurance Tester Name: Delivery Method: HAND - Hand Delivered Sonam Days: Prior Verbal Notification: Recipient Understood Notice: Yes Recipient Signature: Yes Med Rec Note Co-signed by Attending: Coverage Notice Comment: Last DP export: 04/29/18 9:43 a Patient Name: NILA HARDEN Page [phone] at 1345 All edits/amendments must be made on the electronic document DICTATION DATE: 04/29/18 1345 WIRE HARNESS ASSEMBLER: CODI 04/29/18 1345 RPT#: [id number] DC DATE: STATUS: ADM IN [facility] [address] [place] [address] END OF REPORT
--- NOTE | 2018-04-29 13:58 | NUR ---
Full liquid diet as tolerated. Pt is drinking well. Pt report some swallowing difficulty however she is tolerating liquids. Pt is drinking Ensure. Encouraged pt to drink Ensure Enlive as it has more calories and protein than Ensure clear. Pt agreed. Encouraged good po intake. RD following
--- NOTE | 2018-04-29 14:28 | NUR ---
PATIENT LYING IN BED PLAYING. NO SIGNS OF DISTRESS, NO COMPLAINTS. ALL NEEDS MET AT THIS TIME.
--- NOTE | 2018-04-29 16:05 | NUR ---
OT NOTE: PT COMPLETED HYGIENE AND GROOMING TASKS WITH SBA AT EOB. PT COMPLETED EOB SITTING BALANCE WITH SBA. PT COMPLETED ADL MOBILITY WITH CGA AND SIT TO STAND WITH CGA. PT REQUIRES REST BREAKS. THANK YOU, TERRY SEGOVIA
--- NOTE | 2018-04-29 16:53 | NUR ---
Rehab Note- Acute Inpatient REhab prescreen order received. The patient is a good inpatient acute rehab candidate. Have spoken to ROSANNA Zapata. Will follow at this time and will accept to [facility] Acute Inpatient when medically stable and ready for discharge from the acute hospital. Surekha Wang RN CLinical Liaison, [facility] Rehab
--- NOTE | 2018-04-29 19:50 | NUR ---
ALERT AND ORIENTED. LYING IN BED. RESP EVEN AND NONLABORED. O2 @ 3L/NC. BBS COARSE. SKIN TEAR NOTED TO BUE WITH DRSGS INTACT. RED AREAS NOTED TO FACE. REPORTS SORE THROAT FROM INTUBATION. SCDS ON. DENIES PAIN. SALINE LOCK NOTED TO RT HAND. TALKATIVE WTIH STAFF. NO DISTRESS. SR ELEVATED X2. CL IN REACH. SHARON ALARM ON FOR PT SAFETY.
--- NOTE | 2018-04-29 20:42 | NUR ---
PT BRAND DESIGNER LIGHT, PT PLACED ON BEDPAN, PT VOIDED APPROX 150 MLS OF YELLOW URINE WITH NO DIFFICULTY, PT REMOVED FROM BEDPAN, ANJALI CARE DONE WITH WET WIPES, PT REPOSITIONED IN BED, DENIES FURTHER NEEDS, BED IN LOW POSITION, SIDE RAILS X 2, CALL LIGHT IN REACH
--- NOTE | 2018-04-30 01:00 | NUR ---
PT CAREER DEVELOPMENT SPECIALIST LIGHT, PT PLACED ON BEDPAN, VOIDED WITH NO DIFFICULTY, PT REMOVED FROM BEDPAN, VOIDED APPROX 200 MLS OF CLEAR YELLOW URINE, PT CLEANED UP WITH WET WIPES, BLUE CHUX CHANGED, PT REPOSITIONED IN BED, PT REQUESTED AND SERVED FRESH H20, DENIES FURTHER NEEDS OR PAIN, BED IN LOW POSITION, SIDE RAILS X 2, CALL LIGHT IN REACH, BED ALARM ON AND WORKING PROPERLY
--- NOTE | 2018-04-30 01:39 | NUR ---
HAS RESTED WELL SO FAR TONIGHT. HAS USED BEDPAN A FEW TIMES. NO DISTRESS. USES CALL LIGHT FOR ASSISTANCE. SHARON ON FOR SAFETY. CL IN REACH.
[2018-04-30 04:30] VITALS: BP 127/58
--- NOTE | 2018-04-30 05:47 | NUR ---
LYING IN BED. TALKATIVE WITH STAFF. NO DISTRESS. DENIES PAIN. CL IN REACH.
[2018-04-30 05:57] LABS: BASOPHILS 0 % (0-2); EOSINOPHILS 0 % (0-7); HEMATOCRIT 27.4 % (36.0-48.0); HEMOGLOBIN 8.9 g/dL (12-16); IMMATURE GRANULOCYTES 0.2 % (0-5); LYMPHOCYTES 11.8 % (15-50); MCH 26.4 pg (26.0-34.0); MCHC 32.5 g/dL (31.0-37.0); MCV 81.3 fL (80.0-100.0); MEAN PLATELET VOLUME 8.1 fL (7.4-10.4); MONOCYTES 7.5 % (2-11); NEUTROPHILS 80.5 % (40-80); PLATELET COUNT 340 10x3/uL (130-400); RBC 3.37 10x6/uL (4.00-5.40); RDW 17.3 % (11.5-14.5); WBC 8.6 10x3/uL (4.8-10.8)
[2018-04-30 06:04] LABS: CALC OSMOLALITY 257 mosm/kg (275-300); CALCIUM 8.6 mg/dL (8.5-10.1); CARBON DIOXIDE 31.5 mmol/L (21.0-32.0); CHLORIDE - SERUM 91 mmol/L (98-107); CREATININE - SERUM 0.7 mg/dL (0.6-1.3); GLUCOSE 107 mg/dL (74-106); POTASSIUM - SERUM 4.3 mmol/L (3.5-5.1); SODIUM 127 mmol/L (136-145); UREA NITROGEN 22 mg/dL (7-18); eGFR NON AFRICAN AMERICAN 84 mL/min (90-120)
--- NOTE | 2018-04-30 07:45 | NUR ---
PT SITTING UP IN BED EATING BREAKFAST. CL IN REACH. PT DENIES NEEDS OR PAIN AT THIS TIME. BED IN LOW POSITION. SIDE RAILS X2. RESP EVEN AND UNLABORED. NO SIGNS OF DISTRESS. WCTM
[2018-04-30 09:50] VITALS: BP 119/59
--- NOTE | 2018-04-30 12:05 | NUR ---
PT LYING IN BED. CL IN REACH. PT DENIES NEEDS OR PAIN.
--- NOTE | 2018-04-30 19:06 | NUR ---
OT NOTE: PT COMPLETED HYGIENE AND GROOMING TASKS WITH SET UP. PT COMPLETED BED MOB WITH SPV. PT COMPLETED EOB SITTING BALANCE WITH SBA. PT COMPLETED BUE AROM EXS. THANK YOU, TERRY SEGOVIA
--- NOTE | 2018-04-30 19:30 | NUR ---
PATIENT RESTING IN BED WITH HOB ELEVATED. ALERT AND ORIENTED. PATIENT IS SNOQUALMIE. O2 @ 2L NC. RIGHT HAND IV INFUSING LR @ 50 ML/HR. SKIN TEARS TO RIGHT AND LEFT ARM. SCD'S ON. PATIENT DENIES HAVING ANY PAIN OR NEEDS AT THIS TIME. BED IN LOWEST POSITION. SIDE RAILS UP. SHARON ALARM ON. CALL LIGHT IN REACH. CONTINUE PLAN OF CARE.
[2018-04-30 20:00] VITALS: BP 101/46
[2018-05-01] VITALS: BP 115/47
--- NOTE | 2018-05-01 03:00 | NUR ---
PATIENT RESTING IN BED WITH EYES CLOSED. NO SIGNS OF DISTRESS. BED IN LOWEST POSITION. SIDE RAILS UP. CALL LIGHT IN REACH. CONTINUE PLAN OF CARE.
[2018-05-01 04:00] VITALS: BP 111/51
--- NOTE | 2018-05-01 07:15 | NUR ---
OT NOTE:( LATE ENTRY FOR 04/30/18) BED MOB TRAINING , SITTING BALANCE, AROM EXS. KIA BURGOS, OTR/L
--- NOTE | 2018-05-01 07:30 | NUR ---
PT AAOX4 RESP EVEN AND NONLABORED, NO SIGNS OF DISTRESS NOTED, HARD OF HEARING, NO NEEDS EXPRESSED AT THIS TIME, CL IN REACH
[2018-05-01 07:40] LABS: BASOPHILS 0.1 % (0-2); EOSINOPHILS 0 % (0-7); HEMATOCRIT 28.1 % (36.0-48.0); HEMOGLOBIN 8.9 g/dL (12-16); IMMATURE GRANULOCYTES 0.1 % (0-5); LYMPHOCYTES 9.9 % (15-50); MCHC 31.7 g/dL (31.0-37.0); MCV 82.2 fL (80.0-100.0); MEAN PLATELET VOLUME 8.3 fL (7.4-10.4); MONOCYTES 7.2 % (2-11); NEUTROPHILS 82.7 % (40-80); PLATELET COUNT 406 10x3/uL (130-400); RBC 3.42 10x6/uL (4.00-5.40); RDW 17.7 % (11.5-14.5)
[2018-05-01 07:56] LABS: CALC OSMOLALITY 261 mosm/kg (275-300); CALCIUM 8.3 mg/dL (8.5-10.1); CARBON DIOXIDE 32.4 mmol/L (21.0-32.0); CHLORIDE - SERUM 92 mmol/L (98-107); CREATININE - SERUM 0.7 mg/dL (0.6-1.3); GLUCOSE 92 mg/dL (74-106); POTASSIUM - SERUM 3.9 mmol/L (3.5-5.1); SODIUM 129 mmol/L (136-145); UREA NITROGEN 22 mg/dL (7-18); eGFR NON AFRICAN AMERICAN 84 mL/min (90-120)
--- NOTE | 2018-05-01 09:00 | NUR ---
RESTING QUIETLY IN BED. DENIES ANY NEEDS AT THIS TIME.
[2018-05-01 10:06] VITALS: BP 102/53
[2018-05-01 12:19] VITALS: BP 108/47
[2018-05-01] MEDS ORDERED: ELIQUIS2.5 MG PO (12:37)
[2018-05-01] MEDS ORDERED: BROVANA15 MCG/2 M INH (12:37)
[2018-05-01] MEDS ORDERED: PULMICORT0.5 MG/21 UPD (12:38)
[2018-05-01] MEDS ORDERED: DALIRESP500 MCG PO (12:38)
[2018-05-01] MEDS ORDERED: SINGULAIR10 MG PO (12:38)
--- NOTE | 2018-05-01 14:45 | NUR ---
OT NOTE: BED MOB TRAINING FOR ROLLING AND SUPINE TO SIT. KIA BURGOS, OTR/L
--- NOTE | 2018-05-01 15:19 | NUR ---
IV DC WITH CATH INTACT, DDC INSRUTCTIONS GIVEN PT VERABLIZES UNDERSTANDING PT GOING TO INPATIENT REHAB IN WHEELCHAIR VIA HOSPITAL STAFF IN STABLE CONDITION
--- NOTE | 2018-05-01 15:53 | NUR ---
OT NOTE: PT COMPLETED BED MOB WITH SPV. THANK YOU, TERRY SEGOVIA
--- NOTE | 2018-05-02 16:11 | MORECARE ---
CASE MANAGEMENT DISCHARGE SUMMARY PATIENT: NILA HARDEN UNIT: [id number] ADM DATE: 04/21/18 AGE: 82 : 33 SEX: F ROOM/BED: D.1202 AUTHOR: DEQUAN,DOC PHYSICIAN: REFERRING PHYSICIAN: KARRI AMAYA MD DATE OF SERVICE: 05/02/18 Discharge Plan Patient Name: NILA HARDEN Facility: [facility]:[place] : 1935 Planned Disposition: Anticipated Discharge Date: Discharge Date: 05/01/2018 Expected LOS: Initial Reviewer: [email or web address] Initial Review Date: 04/23/2018 Generated: 05/02/18 5:11 pm Comments DCP- Discharge Planning Updated by [id number]: Jodi Pa on 04/29/18 12:[address] Patient Name: NILA HARDEN Admission Status: ER Accout number: [id number] Admission Date: 04-21-2018 : 1935 Admission Diagnosis:ACUTE RESPIRATORY FAILURE WITH HYPOXIA Attending: KARRI AMAYA Current LOS: 8 Anticipated DC Date: Planned Disposition: Primary Insurance: MEDICARE A & B Discharge Planning Comments: IN PATIENT REHAB WILL ACCEPT WHEN PATIENT CAN BE DISCHARGED. SON IS ZEYAD HARDEN, PHONE [phone], CM CALLED AND LET HIM KNOW. STATES PLAN IS HH AFTER DISCHARGED FROM REHAB. Salesperson Surgical Appliances: Jodi Pa DCP- Discharge Planning Updated by [id number]: Jodi Pa on 04/29/18 9:[address] Patient Name: NILA HARDEN Admission Status: ER Accout number: [id number] Admission Date: 04-21-2018 : 1935 Admission Diagnosis:ACUTE RESPIRATORY FAILURE WITH HYPOXIA Attending: KARRI AMAYA Current LOS: 8 Anticipated DC Date: Planned Disposition: Primary Insurance: MEDICARE A & B Discharge Planning Comments: CM MET WITH PATIENT AND IM SIGNED. WAITING TO SEE IF ABLE TO GO TO INPT REHAB. PT AND OT EVALS DONE. Salesperson Surgical Appliances: Jodi Pa DCP- Discharge Planning Updated by [email or web address]: Jolynn Palma on 04/28/18 9:[address] WM HARDEN- SON- CONTACT PHONE NUMBER [phone]. DCP- Discharge Planning Updated by [id number]: Jolynn Palma on 04/28/18 9:[address] LATE ENTRY 0845 CM RECEIVED 3 MESSAGES FROM WM HARDEN, SON, OF THE PATIENT. RETURNED THE PHONE CALLS HOWEVER HIS VOICE MAIL WAS FULL. CM WENT TO THE PATIENT'S ROOM. HER SON ARRIVED JUST CM ENTERED AND SPOKE WITH THE PATIENT. THE SON WANTED TO DISCUSS HIS MOTHER'S DISCHARGE DATE AND PLAN. CM ADVISED IN REVIEW OF THE LAST MD NOTES NO DATE HAD BEEN DOCUMENTED. HE IS INTERESTED IN A DETENTION SETTING. THE PATIENT HAS BEEN TO [facility] PREVIOUSLY.EXPLAINED ACUTE REHAB AND SKILLED REHAB SERVICSE. SON FEELS SKILLED WOULD BE MORE APPROPRIATE AND IN THE [place] AREA. CM PROVIDED THE SON WITHTHE POC FORM OF REHABS IN THE [facility] AND IN THE [facility] WHERE SHE LIVES. HE WILL ADVISE CM OF HIS CHOICE . CM FOLLOWING TO ASSIST W/ DISCHARGE PLANNING. DCP- Discharge Planning Updated by [id number]: Ana Zhu on 04/23/18 1:[address] Patient Name: NILA HARDEN Admission Status: ER Accout number: [id number] Admission Date: 04-21-2018 : 1935 Admission Diagnosis: Attending: KARRI AMAYA Current LOS: 2 Anticipated DC Date: Planned Disposition: Primary Insurance: MEDICARE A & B Discharge Planning Comments: CM met with patient's son Wm Harden [phone] at bedside. Patient is currently still on ventilator and sedated. Wm stated that patient does live alone and has an assistant winemaker that stays with her around the clock. He states that the assistant winemaker is there for house cleaning and to assist with fall prevention. Wm states that she has [facility] that comes out and sets up meds. He is interested in possible in nursing care / skilled care. He stated that patient was in [facility] about 6 weeks ago for pain management. Patient may need SNF upon discharge. CM will continue to monitor and assist as needed with discharge planning / needs. Salesperson Surgical Appliances: Ana Zhu DCP- Discharge Planning Updated by [email or web address]: Ana Zhu on 04/21/18 3:[address] CM attempted to meet with patient for intake assessment. Patient is currently on ventilator sedated and no family available at this time. CM will continue to follow and assist as needed with discharge planning/ needs. DCPIA - Discharge Planning Initial Assessment Updated by [email or web address]: Ana Zhu on 04/23/18 2:26 pm * Is the patient Alert and Oriented? Yes * How many steps to enter\exit or inside your home? * PCP Dr. Garcia - [place] * Pharmacy [facility] * Preadmission Environment Home Alone * ADLs Independent * Other Equipment walker, cane, home 02, nebulizer, * List name and contact numbers for known caregivers / representatives who currently or will assist patient after discharge: Wm Harden valeria - [phone] Hai shaw [phone] * Verbal permission to speak to the caregivers and representatives has been obtained from the patient. N/A * Community resources currently utilized Home Health * Please name any agencies selected above. [facility] * Additional services required to return to the preadmission environment? No * Can the patient safely return to the preadmission environment? Yes * Has this patient been hospitalized within the prior 30 days at any hospital? No Coverage Notice Reviewer: [id number] Danielle Pa Notice Issued Date-Time: 04/29/2018 10:38 Notice Type: IM Discharge Notice Notice Delivered To: Patient Relationship to Patient: Self Rejector Name: Delivery Method: HAND - Hand Delivered Sonam Days: Prior Verbal Notification: Recipient Understood Notice: Yes Recipient Signature: Yes Med Rec Note Co-signed by Attending: Coverage Notice Comment: Last DP export: 04/29/18 12:45 p Patient Name: NILA HARDEN Page [id number] at 1611 All edits/amendments must be made on the electronic document DICTATION DATE: 05/02/18 1611 ANIMAL REHABILITATOR: CODI 05/02/18 1611 RPT#: [id number] DC DATE:05/01/18 STATUS: DIS IN [facility] [address] [place] [address] END OF REPORT
== END 2018-05-01 16:00 | DRG 207 ==
LOC: D.ER 11:25 → D.ICU 12:25 → D.EDHOLD 12:25 → D.ICU 12:36 → D.M3 04-26 17:49
PROVIDERS: Family Medicine; Internal Medicine Pulmonary Disease; ADMIT Internal Medicine Nephrology
PROC: 5A1955Z Respiratory Ventilation, Greater than 96 Consecutive Hours (ICD-10-PCS; principal; 2018-04-21)
DX: J96.01 Acute respiratory failure with hypoxia (principal); J18.1 Lobar pneumonia, unspecified organism; S22.089A Unspecified fracture of T11-T12 vertebra, initial encounter for closed fracture; E44.0 Moderate protein-calorie malnutrition; Z68.1 Body mass index [BMI] 19.9 or less, adult; J44.1 Chronic obstructive pulmonary disease with (acute) exacerbation; E87.1 Hypo-osmolality and hyponatremia; N17.9 Acute kidney failure, unspecified; J96.02 Acute respiratory failure with hypercapnia; D50.9 Iron deficiency anemia, unspecified; E83.42 Hypomagnesemia; G62.9 Polyneuropathy, unspecified; I10 Essential (primary) hypertension; E03.9 Hypothyroidism, unspecified; S81.012A Laceration without foreign body, left knee, initial encounter; S81.011A Laceration without foreign body, right knee, initial encounter; R53.81 Other malaise

== ENCOUNTER 2018-05-01 16:01 | Inpatient (IN) | payer MEDICARE, BC ==
[~2018-05-01] VITALS: Ht 154.9 cm; Wt 47.2 kg
--- NOTE | 2018-05-01 16:00 | NUR ---
recieved/wc to room 1118a;oriented to room and cl.family at bedside.
--- NOTE | 2018-05-01 16:00 | NUR ---
PT ARRIVED ON UNIT VIA WHEELCHAIR WITH HOSPITAL STAFF. PT ON OXYGEN 2L VIA NC. CL IN REACH. BED IN LOW POSITION. SIDE RAILS X2. RESP EVEN AND UNLABORED. PT VENETIE IRA. WILL CONTINUE TO MONITOR.
[~2018-05-01 16:01] MED LIST: ADVAIR HFA [SP]12 GM INH; AMOXICILLIN500 M1 PO; BACLOFEN10 MG PO; BAYER CHEWABLE81 MG PO; BROVANA15 MCG/2 M INH; CALCIUM 500 +1 EAC3 PO; CELEBREX200 MG PO; CELEXA40 MG PO; DALIRESP500 MCG PO; ELIQUIS2.5 MG PO; FERROUS SULFAT325 MG PO; GAVISCON LIQUI355 ML PO; IPRAT-ALBUT 0.5-3 ML UPD; MAALOX ADVANCE355 ML PO; MUCINEX600 MG PO; MUCUS RELIEF400 MG PO; NEURONTIN600 MG PO; NORCO 10-325 TA1 TAB PO; PATANOL 0.1 % OP5 ML RIGHT EYE; PREDNISONE20 MG PO; PRINIVIL10 MG PO; PULMICORT0.5 MG/21 UPD; SINGULAIR10 MG PO; SYNTHROID150 MCG PO; XANAX0.25 MG PO
--- NOTE | 2018-05-01 17:39 | NUR ---
PT LYING IN BED FAMILY IN ROOM. CL IN REACH. PAPER WORK SIGNED BY SON. JEAN
[2018-05-01 19:00] VITALS: BP 93/49
--- NOTE | 2018-05-01 19:39 | NUR ---
PT A&O PLEASANT, NO NEEDS NOTED, FLUIDS AND CALL LIGHT WITHIN REACH
[2018-05-01 21:38] VITALS: BP 93/49; BMI 19.7
--- NOTE | 2018-05-02 01:28 | NUR ---
PT ASLEEP NO NEEDS NOTED FLUIDS AND CALL LIGHT WITHIN REACH
[2018-05-02 07:30] VITALS: BP 110/52
[2018-05-02 07:50] LABS: ANION GAP 6.4 mmol/L (8-16); BASOPHILS 0.3 % (0-2); CALCIUM 8.9 mg/dL (8.5-10.1); CARBON DIOXIDE 33.6 mmol/L (21.0-32.0); CREATININE - SERUM 0.8 mg/dL (0.6-1.3); EOSINOPHILS 0.9 % (0-7); HEMATOCRIT 28.2 % (36.0-48.0); HEMOGLOBIN 8.8 g/dL (12-16); IMMATURE GRANULOCYTES 0.3 % (0-5); LYMPHOCYTES 18.8 % (15-50); MCHC 31.2 g/dL (31.0-37.0); MCV 83.2 fL (80.0-100.0); MEAN PLATELET VOLUME 8.3 fL (7.4-10.4); NEUTROPHILS 68.7 % (40-80); PLATELET COUNT 406 10x3/uL (130-400); RBC 3.39 10x6/uL (4.00-5.40); RDW 17.6 % (11.5-14.5); WBC 7.9 10x3/uL (4.8-10.8)
--- NOTE | 2018-05-02 10:16 | NUR ---
HAD SHOWER WITH OT THIS AM. DRAINAGE NOTED FROM RUE SKIN TEAR. SHE IS WEAK BUT COOPERATIVE WITH REQUESTS.
[2018-05-02 11:33] VITALS: Ht 154.9 cm; Wt 47.2 kg
--- NOTE | 2018-05-02 12:00 | NUR ---
PATIENT ADMITTED TO REHAB FROM ACUTE FLOOR. SHE IS A CLIENT OF [email or web address] FROM [place], HER PCP IS DR. BURGOS IN [place]. DME AT HOME IS A WALKER, CANE , O2 AND A NEBULIZER. PATIENT HAS A CAREGIVER AT HOME. WILL CONTINUE TO FOLLOW WITH PATIENT.
--- NOTE | 2018-05-02 15:05 | NUR ---
LAYING IN BED WATCHING TV. CALL LIGHT IN REACH
--- NOTE | 2018-05-02 17:27 | NUR ---
LAYING IN BED TALKING TO VISITOR. CALL LIGHT IN REACH
[2018-05-02 19:00] VITALS: BP 79/37
--- NOTE | 2018-05-03 00:10 | NUR ---
DRESSED PATIENTS BILATERAL ARMS WITH CURLIX AND STOCKINEETE TO HELP WITH WEEPING. WCTM.
--- NOTE | 2018-05-03 00:17 | NUR ---
APPLIED MEPILEX BORDER TO TAIL BONE FOR REDDENED AREA.
--- NOTE | 2018-05-03 02:00 | NUR ---
PATIENT ASLEEP WITH EYES CLOSED. RESPIRATIONS EVEN. NO SIGNS OF DISTRESS. CALL LIGHT IN REACH.
[2018-05-03 07:31] VITALS: BP 109/51
--- NOTE | 2018-05-03 09:51 | NUR ---
LAYING QUIETLY IN BED, EYES CLOSED. BUE HAS ABSORBANT DSGS IN PLACE DUE TO SKIN TEARS. USES WC FOR AMBULATION ASST. NO S/S DISTRESS. CALL LIGHT IN REACH. BED IN LOWEST POSITION.
--- NOTE | 2018-05-03 19:04 | NUR ---
GREETED PATIENT AND INTRODUCED MYSELF HER NURSE FOR THE EVENING. PATIENT STATED THAT SHE IS HAVING SOME BACK PAIN BUT WANTS TO WAIT UNTIL LATER TO TAKE MEDICATION. SAID SHE WORKED VERY HARD IN THERAPY TODAY AND IS TIRED. DENIES ANY FURTHER NEEDS AT THIS TIME.
[2018-05-03 19:47] VITALS: BP 97/43
--- NOTE | 2018-05-04 00:24 | NUR ---
PATIENT ASLEEP WITH EYES CLOSED LAYING IN SUPINE POSITION. HOB AT 30 DEGREES. RESPIRATIONS EVEN. NO SIGNS OF DISTRESS. CALL LIGHT IN REACH.
--- NOTE | 2018-05-04 00:58 | NUR ---
DRESSINGS CHANGED ON BILATERAL ARMS. WEEPING SEEMS TO BE IMPROVING FROM LAST DRESSING CHANGE LAST EVENING. WCTM.
--- NOTE | 2018-05-04 04:08 | NUR ---
ASSISTED PATIENT TO BATHROOM USING WHEELCHAIR. PATIENT CLEAR YELLOW URINE. BACK TO BED AND REPOSITIONED FOR COMFORT. FRESH GLASS OF APPLEJUICE BROUGHT TO PATIENT PER HER REQUEST. CALL LIGHT IN REACH. BED IN LOWEST POSITION.
--- NOTE | 2018-05-04 07:23 | NUR ---
RESTING QUIETLY IN BED. NO S/S DISTRESS. CALL LIGHT IN REACH. BED IN LOWEST POSITION.
[2018-05-04 07:30] VITALS: BP 115/61
--- NOTE | 2018-05-04 13:10 | NUR ---
LAYING IN BED WITH EYES CLOSED. NO S/S DISTRESS. STILL WEARING OXYGEN. CALL LIGHT IN REACH
--- NOTE | 2018-05-04 15:39 | NUR ---
ENCOURAGED TO STAY OFF BUTTOCKS DUE TO POTENTIAL FOR SKIN BREAKDOWN.
--- NOTE | 2018-05-04 19:08 | NUR ---
GREETED PATIENT AND INTRODUCED MYSELF HER NURSE FOR THE EVENING. PATIENT IS LAYING IN BED QUIETLY RESTING. DENIES ANY NEEDS AT THIS TIME. CALL LIGHT IN REACH.
[2018-05-04 21:06] VITALS: BP 100/49
--- NOTE | 2018-05-05 00:43 | NUR ---
PATIENT ASLEEP WITH EYES CLOSED LAYING IN SUPINE POSITION. HOB AT 30 DEGREES. RESPIRATIONS EVEN. NO SIGNS OF DISTRESS. 02 AT 2.5 L VIA NC IN USE. CALL LIGHT IN REACH.
--- NOTE | 2018-05-05 02:24 | NUR ---
PATIENT ASLEEP WITH EYES CLOSED LAYING IN SUPINE POSITION. 02 AT 2.5L VIA NC IN USE. HOB AT 30 DEGREES. NO SIGNS OF DISTRESS. CALL LIGHT IN REACH.
--- NOTE | 2018-05-05 03:26 | NUR ---
PATIENT AWAKE AND ASSISTED TO BATHROOM USING WHEELCHAIR. PATIENT BACK TO BED AND REPOSITIONED FOR COMFORT. PATIENT HAD BUMPED HER LEFT ELBOW AND APPLIED A MEPILEX BANDANGE.
--- NOTE | 2018-05-05 07:35 | NUR ---
PATIENT RESTING QUIETLY AT THIS TIME. NO COMPLAINTS. CALL LIGHT WITHIN REACH. WILL CONINTUE TO MONITOR.
--- NOTE | 2018-05-05 07:36 | NUR ---
PT RESTING QUIETLY.CL IN REACH. NO SIGNS OF DISTRESS OR PAIN. BED IN LOW POSITION. SIDE RAILS X2. BED ALARM ON . RESP EVEN AND UNLABORED. WILL CONTINUE TO MONITOR.
[2018-05-05 07:51] LABS: BASOPHILS 0.6 % (0-2); HEMATOCRIT 24.6 % (36.0-48.0); HEMOGLOBIN 7.7 g/dL (12-16); IMMATURE GRANULOCYTES 0.1 % (0-5); LYMPHOCYTES 21.5 % (15-50); MCH 26.5 pg (26.0-34.0); MCHC 31.3 g/dL (31.0-37.0); MCV 84.5 fL (80.0-100.0); MEAN PLATELET VOLUME 8.2 fL (7.4-10.4); MONOCYTES 9.4 % (2-11); NEUTROPHILS 67.4 % (40-80); PLATELET COUNT 380 10x3/uL (130-400); RBC 2.91 10x6/uL (4.00-5.40); WBC 7.2 10x3/uL (4.8-10.8)
[2018-05-05 08:00] VITALS: BP 97/43
[2018-05-05 08:15] LABS: CALC OSMOLALITY 272 mosm/kg (275-300); CARBON DIOXIDE 35.1 mmol/L (21.0-32.0); CHLORIDE - SERUM 98 mmol/L (98-107); CREATININE - SERUM 0.6 mg/dL (0.6-1.3); GLUCOSE 81 mg/dL (74-106); POTASSIUM - SERUM 4.5 mmol/L (3.5-5.1); SODIUM 135 mmol/L (136-145); UREA NITROGEN 24 mg/dL (7-18); eGFR NON AFRICAN AMERICAN > 90 mL/min (90-120)
--- NOTE | 2018-05-05 09:37 | NUR ---
PT BP 112/38 PT IS A SYMPTOMATIC. CL IN REACH. PT ALERT AND ORIENTATED AND DENIES ANY DIFFERENT FEELINGS. WILL CONTINUE TO MONITOR. PT IS TO GET 2 UNITS OF BLOOD TODAY.
--- NOTE | 2018-05-05 11:30 | NUR ---
PT SITTING UP IN BED. CL IN REACH. PT DENIES NEEDS OR PAIN AT THIS TIME. WCTM
--- NOTE | 2018-05-05 14:45 | NUR ---
IV STARTED IN R HAND. TOLERATED WELL. PRE MEDS GIVEN. WILL CONTINUE TO MONITOR.
--- NOTE | 2018-05-05 15:27 | NUR ---
BLOOD TRANSFUSING AT THIS TIME. PT BP 104/44 PULSE 77 AND RESP 16. PT DENIES DISTRESS OR PAIN. NO SIGNS OF DISTRESS OR PAIN. WILL CONTINUE TO MONITOR. CL IN REACH.
--- NOTE | 2018-05-05 18:07 | NUR ---
PT SITTING UP IN BED EATING DINNER. CL IN REACH. BLOOD TRANSFUSION STILL GOING. WILL CONTINUE TO MONITOR. RESP EVEN AND UNLABORED. LAST BP WAS 124/62.
[2018-05-05 19:00] VITALS: BP 124/59
--- NOTE | 2018-05-05 19:45 | NUR ---
PT RESTING IN BED WITH EYES OPEN. ALERT AND ORIENTED X 3. DENIES ACUTE DISCOMFORT. SECOND UNIT OF PRBC'S INFUSING TO RIGHT WRIST IV WITHOUT DIFFICULTY. VSS. NO ADVERSE REACTIONS NOTED. O2 IS ON @ 2.5 LPM PER NC. NO SOB NOTED. SR'S ARE UP X 3 IN BED. CALL LIGHT AND BEDSIDE TABLE ARE WITHIN EASY REACH.
--- NOTE | 2018-05-05 21:45 | NUR ---
BLOOD IS FINISHED AT THIS TIME. VSS. NO ADVERSE REACTION NOTED.
--- NOTE | 2018-05-05 23:06 | NUR ---
PT IS RESTING QUIETLY IN BED WITH EYES CLOSED. RESPS ARE EVEN AND UNLABORED. NO ACUTE DISTRESS NOTED.
[2018-05-06 08:00] VITALS: BP 121/49
--- NOTE | 2018-05-06 08:00 | NUR ---
SHIFT ASSMT COMPLETED;STATES PAIN IN LOW BACK OVER RT HIP,AREA APPEARS SWOLLEN;STATES SHARP PAIN WITH ANY MOVEMENT.BREAKFAST GIVEN.CL IN REACH.
--- NOTE | 2018-05-06 12:00 | NUR ---
SITTING UP IN CHAIR FOR LUNCH.CL IN REACH.
--- NOTE | 2018-05-06 13:48 | NUR ---
Nutrition Follow Up: Pt was asleep at the time of RD visit. Interview deferred. Diet: Regular PO Intake: 67% meal avg BM: 05/05/18 Labs reviewed Meds noted including Prednisone Rec continue current diet. RD following.
[2018-05-06 19:00] VITALS: BP 123/45
--- NOTE | 2018-05-06 19:00 | NUR ---
THE PATIENT WAS LYING IN BED WHEN STAFF ENTERED HER AREA. BED IN LOW POSITION WITH CALL LIGHT WITHIN REACH AND SIDERAILS X2. THE PATIENT DEMONSTRATES APPROPRIATE USE OF A CALL LIGHT. THE PATIENT APPEARS COMFORTABLE WITH NO QUESTIONS OR CONCERNS.
--- NOTE | 2018-05-07 04:38 | NUR ---
PATIENT REQUESTS PAIN MEDICATION. MEDICATION DELIVERED. THE PATIENT HAS NO OTHER COMPLAINTS OR QUESTIONS AT THIS TIME.
[2018-05-07 06:49] LABS: BASOPHILS 0.6 % (0-2); EOSINOPHILS 0.6 % (0-7); HEMATOCRIT 33.9 % (36.0-48.0); HEMOGLOBIN 10.8 g/dL (12-16); IMMATURE GRANULOCYTES 0.2 % (0-5); LYMPHOCYTES 17.8 % (15-50); MCHC 31.9 g/dL (31.0-37.0); MCV 84.8 fL (80.0-100.0); MEAN PLATELET VOLUME 8.2 fL (7.4-10.4); MONOCYTES 10.9 % (2-11); NEUTROPHILS 69.9 % (40-80); PLATELET COUNT 324 10x3/uL (130-400); RDW 16.7 % (11.5-14.5); WBC 8.1 10x3/uL (4.8-10.8)
[2018-05-07 07:05] LABS: CALC OSMOLALITY 269 mosm/kg (275-300); CALCIUM 9.1 mg/dL (8.5-10.1); CARBON DIOXIDE 34.3 mmol/L (21.0-32.0); CHLORIDE - SERUM 97 mmol/L (98-107); CREATININE - SERUM 0.7 mg/dL (0.6-1.3); GLUCOSE 72 mg/dL (74-106); POTASSIUM - SERUM 4.9 mmol/L (3.5-5.1); SODIUM 133 mmol/L (136-145); UREA NITROGEN 26 mg/dL (7-18); eGFR NON AFRICAN AMERICAN 84 mL/min (90-120)
[2018-05-07 07:06] LABS: % SATURATION 9 % (15-55); IRON 19 ug/dl (35-150); TOTAL IRON BIND CAPACITY 207 ug/dl (260-445); UNSAT IRON BIND CAPACITY 188 ug/dl (150-375)
--- NOTE | 2018-05-07 07:20 | NUR ---
PT LYING IN BED EYES OPEN. CL IN REACH. BED IN LOW POSITION. SIDE RAILS X2. BED ALARM ON. RESP EVEN AND UNLABORED. WILL CONTINUE TO MONITOR.
[2018-05-07 08:00] VITALS: BP 128/52
--- NOTE | 2018-05-07 11:30 | NUR ---
pt sitting up in wheelchair.cl in reach. pt denies needs or pain. wctm
--- NOTE | 2018-05-07 12:15 | NUR ---
FAMILY VISITING.DENIES NEEDS.
--- NOTE | 2018-05-07 15:00 | NUR ---
PT HAS 3+ EDEMA TO BLE. PT ALSO COMPLAINING OF LOWER BACK PAIN TO RIGHT SIDE. RIGHT BACK SIDE ABOVE HIP IS SWOLLE. CALLED ALEXANDRA AND RECIEVED ORDER FOR XRAY OF BACK AND HIP AND LASIX 20MG DAILY. LASIX WAS GIVEN FOR TODAY AND NEXT DOSE IS DUE TOMORROW. WILL CONTINUE TO MONITOR. CALL LIGHT IN REACH. PT LYING IN BED.
--- NOTE | 2018-05-07 17:54 | NUR ---
PT SITTING UP IN BED. FAMILY IN ROOM. CL IN REACH. PT DENIES NEEDS AT THIS TIME. BED IN LOW POSITION. SIDE RAILS X2. RESP EVEN AND UNLABORED. O2 ON 2L VIA NC. WCTM
[2018-05-07 19:00] VITALS: BP 146/56
--- NOTE | 2018-05-07 19:39 | NUR ---
GREETED PATIENT AND INTRODUCED MYSELF HAS HER NURSE FOR THE EVENING. REPOSTIONED PATIENT IN BED FOR COMFORT. PATIENT DENIES ANY FURTHER NEEDS AT THIS TIME. CALL LIGHT IN REACH.
--- NOTE | 2018-05-08 01:19 | NUR ---
PATIENT ASLEEP WITH EYES CLOSED. HOB AT 35 DEGREES. 02 AT 2L VIA NC. RESPIRATIONS EVEN. NO SIGNS OF DISTRESS. CALL LIGHT IN REACH.
--- NOTE | 2018-05-08 03:25 | NUR ---
PATIENT ASLEEP WITH EYES CLOSED LAYING IN SUPINE POSITION. HOB AT 3O DEGREES. 02 AT 2L VIA NC IN USE. RESPIRATIONS EVEN. NO SIGNS OF DISTRESS. CALL LIGHT IN REACH.
--- NOTE | 2018-05-08 04:53 | NUR ---
PATIENTS DRESSINGS ON LEFT ARM REMOVED AND WOUNDS CLEANED AND NEW MEPILEX APPLIED TO UPPER ARM AND ELBOW.
[2018-05-08 08:08] VITALS: BP 140/56
--- NOTE | 2018-05-08 08:15 | NUR ---
PT UP AT BEDSIDE IN WHEELCHAIR EATING BREAKFAST TOLERATING WELL CALL [facility] IN REACH WILL MONITER
--- NOTE | 2018-05-08 08:32 | RHP ---
PATIENT: NILA HARDEN MEDICAL RECORD: [id number] ACCOUNT: [id number] LOCATION:[facility]1116 : 31 ADMISSION DATE: 05/01/18 REHABILITATION HISTORY AND PHYSICAL EXAMINATION POST ADMISSION PHYSICIAN EXAMINATION ADMITTING DIAGNOSIS: COPD-induced myopathy. HISTORY OF PRESENT ILLNESS: The patient admitted to inpatient rehab with COPD myopathy. She is an 82-year-old female patient with hypothyroidism, COPD, iron deficient anemia, neuropathy, hypertension. She was transferred from the [facility] secondary to her respiratory distress and COPD and failing outpatient therapy for her left lower lobe pneumonia. She was started on BiPAP without improvement. She became unresponsive, required intubation en route to the hospital. Her ABGs showed a pH of 7.39, pCO2 of 46, pO2 of 399, and 100% sat. She had a chest x-ray, which showed interstitial changes. She had an extended stay in our acute hospital being on ventilator from 04/21/2018 to 04/25/2018, was extubated and placed on supplemental O2. She moved out to the medical floor and continued to be followed by pulmonary. She required supplemental O2. She did not require IV steroids, IV Protonix. She has been very weak. She has had proximal muscle weakness and impaired mobility. She is at high risk for falls and self-care deficits. She lives at home alone, was independent with her ADLs and mobility prior to this. She is currently set up for mod assist for ADLs, mod assist to total assist for mobility. She and her family planning for return home hopefully at her prior level of functioning or as close as possible as she goes home. COMORBIDITIES: Include acute hypoxic/hypercapnic respiratory failure. She got a history of hypothyroidism, iron deficient anemia, hypertension, neuropathy, skin tears, hyponatremia, debility, protein-calorie malnutrition, normocytic anemia, hypertension, and electrolyte abnormalities. PAST MEDICAL HISTORY: Significant for hypothyroidism, iron deficient anemia, neuropathy, COPD, and hypertension. PAST SURGICAL HISTORY: Includes hysterectomy. ALLERGIES: No known drug allergies. CURRENT MEDICATIONS: Include Celexa 40 mg daily, Daliresp 250 mcg daily, prednisone 10 mg in the a.m., she is on Zestril 10 mg daily, Synthroid 150 mcg daily, ferrous sulfate 325 daily, Celebrex 200 mg daily, aspirin chewable 81 mg daily, Mucinex 600 mg b.i.d., Singulair 10 mg at bedtime, she is on Maalox 30 cc q. 4 hours p.r.n. indigestion, Gaviscon as needed, DuoNeb 3 cc q. 4 hours p.r.n. shortness of breath, Gray 10/325 one to two tabs q.6 hours p.r.n., Neurontin 600 mg t.i.d., she is on Advair HFA 2 puffs b.i.d., Pulmicort 0.5 mg b.i.d., baclofen 10 mg t.i.d., Brovana 15 mcg b.i.d., Eliquis 2.5 mg b.i.d., and Xanax 0.25 mg b.i.d. HABITS: No current alcohol or tobacco use. FAMILY HISTORY: Noncontributory. SOCIAL HISTORY: The patient hopes to return back to [place] where she is from back to her prior level of functioning. HISTORY AND PHYSICAL [id number] NILA HARDEN REVIEW OF SYSTEMS: GENERAL: Does complain of weakness and fatigue. HEENT: Denies cold, cough, or congestion. CARDIOVASCULAR: Denies chest pain. PHYSICAL EXAMINATION: VITAL SIGNS: Stable, afebrile. Generally a thin female, in no distress upon exam. HEENT: Normocephalic and atraumatic. Mucosa moist. NECK: Supple. No lymphadenopathy. LUNGS: Clear at this time. HEART: Regular rate and rhythm. LUNGS: Decreased breath sounds in both bases. ABDOMEN: Benign. EXTREMITIES: No clubbing, cyanosis or edema. NEUROLOGIC: She does have noted weakness. LABORATORY DATA: White count is 7.9, H&H of 8.8 and 28.2, and platelet count is 406. Sodium 131, potassium 4.0, BUN and creatinine of 27.8 and 0.8, and blood sugar is noted to be 82. ASSESSMENT: This is an 82-year-old female patient admitted to the rehab with a working diagnosis of COPD-induced myopathy. The patient has potential to make improvement. We instituted the following multidisciplinary therapies including, but not limited to physical, occupational, respiratory, speech, nutritional services, prosthetics and orthotics. Given her complex medical condition and risk for more complications, rehabilitation services cannot be provided at a low level of care such as skilled nurse facility. PLAN: 1. Admit to [facility] for intensive inpatient therapy to include the following disciplines: A. Physical therapy to improve gait, all transfer skills and bed mobility to a modified independent level. B. Occupational therapy to improve activities of daily living to a modified independent level. C. Case management to assist with discharge planning and placement options. D. Nutrition to assist with nutritional needs. E. Rehabilitation nursing to assist in monitoring the patient's underlying medical conditions and to assist with any type of bowel and bladder management. 2. The patient's current medication and medical care will be continued. 3. The patient will be placed on standard fall precautions. 4. The patient's estimated length of stay is approximately 7-10 days. 5. We will go ahead and monitor respiratory status closely. We consult pulmonary if we see any decline in this or any need to and I am going to follow her in the a.m. TRANSINT:[id number] Voice Confirmation ID: [id number] DOCUMENT ID: [id number] ALTON notes whether there has been none or any medical/functional change since admission: - No change since prescreen. HISTORY AND PHYSICAL [id number] NILA HARDEN attests patient continues to be appropriate for IRF: - Continues to be appropriate. BRI MORRIS MD at 0832 CC: [id number] DICTATION DATE: 05/02/18 0847 BUS AND [employer] DISPATCHER: 05/02/18 1044 ADM IN [place] [id number] [place] [address]
--- NOTE | 2018-05-08 12:20 | NUR ---
EATING LUNCH.CL IN REACH.
--- NOTE | 2018-05-08 18:06 | NUR ---
PT RESTING IN BED WITH EYES OPEN CALL LIGHT IN REACH WILL MONITER
[2018-05-08 19:00] VITALS: BP 100/48
--- NOTE | 2018-05-08 19:03 | NUR ---
GREETED PATIENT AND INTRODUCED MYSELF HER NURSE FOR THE EVENING. ASSISTED PATIENT TO BATHROOM USING WHEELCHAIR. BACK TO BED AND REPOSITIONED FOR COMFORT. CALL LIGHT IN REACH.
--- NOTE | 2018-05-09 00:14 | NUR ---
PATIENT ASLEEP WITH EYES CLOSED LAYING IN SUPINE POSITION. HOB AT 30 DEGREES. RESPIRATIONS EVEN. NO SIGNS OF DISTRESS. CALL LIGHT IN REACH.
--- NOTE | 2018-05-09 02:46 | NUR ---
PATIENT ASLEEP WITH EYES CLOSED LAYING IN SUPINE POSITION. HOB AT 30 DEGREES. O2 AT 2L VIA NC IN USE. RESPIRATIONS EVEN. NO SIGNS OF DISTRESS. CALL LIGHT IN REACH.
--- NOTE | 2018-05-09 04:00 | NUR ---
PATIENT ASLEEP WITH EYES CLOSED LAYING IN SUPINE POSITION. HOB AT 30 DEGREES. 02 AT 2L VIA NC. RESPIRATIONS EVEN. NO SIGNS OF DISTRESS. CALL LIGHT IN REACH.
--- NOTE | 2018-05-09 05:00 | NUR ---
PATIENT AWAKE AND ASSISTED TO BATHROOM USING WHEELCHAIR. BACK TO BED AND AM MEDICATIONS ADMINISTERED.
[2018-05-09 06:09] LABS: BASOPHILS 0.7 % (0-2); EOSINOPHILS 0.8 % (0-7); HEMATOCRIT 30.9 % (36.0-48.0); HEMOGLOBIN 9.7 g/dL (12-16); IMMATURE GRANULOCYTES 0.3 % (0-5); LYMPHOCYTES 15.1 % (15-50); MCH 26.8 pg (26.0-34.0); MCHC 31.4 g/dL (31.0-37.0); MCV 85.4 fL (80.0-100.0); MEAN PLATELET VOLUME 7.9 fL (7.4-10.4); MONOCYTES 8.5 % (2-11); NEUTROPHILS 74.6 % (40-80); RBC 3.62 10x6/uL (4.00-5.40); RDW 16.7 % (11.5-14.5); WBC 7.6 10x3/uL (4.8-10.8)
[2018-05-09 06:29] LABS: CALC OSMOLALITY 278 mosm/kg (275-300); CALCIUM 9.6 mg/dL (8.5-10.1); CHLORIDE - SERUM 95 mmol/L (98-107); CREATININE - SERUM 0.7 mg/dL (0.6-1.3); GLUCOSE 93 mg/dL (74-106); POTASSIUM - SERUM 4.5 mmol/L (3.5-5.1); SODIUM 135 mmol/L (136-145); eGFR NON AFRICAN AMERICAN 84 mL/min (90-120)
[2018-05-09 06:31] LABS: UREA NITROGEN 38 mg/dL (7-18)
[2018-05-09 06:40] LABS: PLATELET COUNT 221 10x3/uL (130-400)
[2018-05-09 07:47] VITALS: BP 99/43
--- NOTE | 2018-05-09 10:17 | NUR ---
VISITED WITH PATIENTS 3 SONS, THEY WILL VISIT DIFFERENT FACILITIES FOR THEIR MOTHER TO DISCHARGE TO. WILL CONTINUE TO FOLLOW WITH PATIENT.
[2018-05-09 11:56] LABS: T4 THYROXIN - FREE 1.02 ng/dL (0.76-1.46); THYROID STIMULATING HORMONE 3.85 uIU/mL (0.36-3.74)
--- NOTE | 2018-05-09 16:19 | NUR ---
SPOKE WITH PATIENT AND FAMILY AND THEY WILL LET ME KNOW SATURDAY THE TO WHICH FACILITY THEY HAVE CHOSEN FOR DISCHARGE.
--- NOTE | 2018-05-09 18:42 | NUR ---
PT RESTING IN BED WITH EYES OPEN CALL LIGHT IN REACH NO PROBLEMS WILL MONITER
[2018-05-10 06:45] LABS: BASOPHILS 0.9 % (0-2); EOSINOPHILS 0.7 % (0-7); HEMATOCRIT 30.5 % (36.0-48.0); HEMOGLOBIN 9.5 g/dL (12-16); IMMATURE GRANULOCYTES 0.2 % (0-5); LYMPHOCYTES 18.8 % (15-50); MCH 26.8 pg (26.0-34.0); MCHC 31.1 g/dL (31.0-37.0); MCV 85.9 fL (80.0-100.0); MEAN PLATELET VOLUME 8.4 fL (7.4-10.4); MONOCYTES 8.5 % (2-11); NEUTROPHILS 70.9 % (40-80); PLATELET COUNT 251 10x3/uL (130-400); RBC 3.55 10x6/uL (4.00-5.40); RDW 16.9 % (11.5-14.5); WBC 5.9 10x3/uL (4.8-10.8)
--- NOTE | 2018-05-10 07:00 | NUR ---
RECEIVED REPORT. ASSISTED TO RESTROOM WITH MIN ASSIST. C/O MIDDLE BACK PAIN 08/15 WILL ADMINISTER PAIN MEDICATION PER PT REQUEST. DENIES ANY NEEDS. CALL LIGHT WITHIN REACH, FALL PRECAUTIONS IN PLACE.
[2018-05-10 07:04] LABS: ANION GAP 6.2 mmol/L (8-16); CALCIUM 9.4 mg/dL (8.5-10.1); CARBON DIOXIDE 38.3 mmol/L (21.0-32.0); CREATININE - SERUM 0.8 mg/dL (0.6-1.3); POTASSIUM - SERUM 4.5 mmol/L (3.5-5.1)
[2018-05-10 08:18] VITALS: BP 121/50
--- NOTE | 2018-05-10 14:25 | NUR ---
SOBIA QUICK ASSISTED PT WITH SHOWER. CHANGED MEPILEX ON BUTTOCKS. NO OPEN WOUNDS ON BUTTOCKS REDDENED BLANCHABLE AREA, MEPILEX APPLIED FOR PROTECTION
--- NOTE | 2018-05-10 16:49 | NUR ---
LYING IN BED ON RIGHT SIDE EYES CLOSED RESTING. DAUGHTER IN OTHER BED ASLEEP IN ROOM. RR EVEN AND UNLABORED. CALL LIGHT WITHIN REACH, BED ALARM ON
--- NOTE | 2018-05-10 16:53 | NUR ---
LYING IN BED ON RIGHT SIDE EYES CLOSED RESTING. CONTINUES ON 2L VIA NC. RR EVEN AND UNLABORED. CALL LIGHT WITHIN REACH, FALL PRECAUTIONS IN PLACE
--- NOTE | 2018-05-10 19:00 | NUR ---
THE PATIENT WAS LYING IN BED AND WATCHING TELEVISION WHEN STAFF ENTERED HER ROOM. BED IN LO WPOSITION WITH SIDERAILS X2 AND CALL LIGHT WITHIN REACH. PATIENT DEMONSTRATES APPROPRIATE USE OF A CALL LIGHT. THE PATIENT APPEARS COMFORTABLE WITH NO QUESTIONS OR CONCERNS AT THIS TIME.
[2018-05-11 02:21] VITALS: BP 138/60
--- NOTE | 2018-05-11 03:37 | NUR ---
THE PATIENT APPEARS TO BE SLEEPING COMFORTABLY. NO SAFETY CONCERNS NOTED.
[2018-05-11 07:59] VITALS: BP 126/54
--- NOTE | 2018-05-11 08:37 | NUR ---
PATIENT AWAKE AND ALERT THIS MORNING. ATE 90% OF BREAKFAST. IV PATENT TO RT ARM WITH NO REDNESS OR SWELLING. O2 ON @ 2L LITERS PER NC. NO COMPLAINTS AT THIS TIME. WILL CONTINUE TO MONITOR.
--- NOTE | 2018-05-11 17:36 | NUR ---
PATIENT C/O BACK PAIN AT 1330. MEDICATED WITH PRN NORCO WITH GOOD RESULTS. SLEPT MOST OF THE AFTERNOON. NO COMPLAINTS AT THIS TIME. SITTING UP IN BED EATING SUPPER. CALL LIGHT RAFIA COX. WILL CONTINUE TO MONITOR.
[2018-05-11 18:43] VITALS: BP 102/42
[2018-05-11 19:12] VITALS: BP 102/42
--- NOTE | 2018-05-11 19:17 | NUR ---
PATIENT IS RESTING IN HER BED. DENIES ANY NEEDS. BED IS DOWN LOW WITH SIDE RAILS UP X2 AND CALL LIGHT IN REACH.
--- NOTE | 2018-05-11 21:58 | NUR ---
PT RESTING QUIETLY IN BED WITH EYES CLOSED. NO ACUTE DISTRESS NOTED.
--- NOTE | 2018-05-12 01:00 | NUR ---
PT ASSISTED TO THE BATHROOM WITH SBA. NO FURTHER NEEDS VOICED.
--- NOTE | 2018-05-12 04:59 | NUR ---
RESTING IN BED WITH EYES CLOSED. NO DISTRESS NOTED.
--- NOTE | 2018-05-12 07:51 | NUR ---
PATIENT AWAKE AND ALERT THIS MORNING. SITTING UP IN BED. WILL HAVE EGD DONE SOMETIME TODAY. NPO. O2 PM AT 2L PER NC. CALL LIGHT WITHIN REACH. WILL CONTINUE TO MONITOR.
[2018-05-12 08:00] VITALS: BP 119/45
--- NOTE | 2018-05-12 12:30 | NUR ---
PATIENT PRE-MEDICATED FOR PROCEDURE PER DOCTORS ORDERS. PATIENT RESTING QUIETLY. IN NO APPARANT DISTRESS CONCERNING PROCEDURE.
--- NOTE | 2018-05-12 13:15 | NUR ---
TAKEN TO OUT PATIENT PROCDURE VIA OWN BED.
--- NOTE | 2018-05-12 14:00 | NUR ---
RECIEVED CALL AND GIVEN REPORT OF PATIENT FINDINGS FROM EGD.
--- NOTE | 2018-05-12 14:45 | NUR ---
RETURNED TO UNIT VIA BED. AWAKE AND ALERT. APPEARS TO HAVE TOLERATED PROCEDURE WELL. WILL CONTINUE TO MONITOR.
--- NOTE | 2018-05-12 16:27 | NUR ---
SPOKE WITH PATIENT AND FAMILY AND A REFERRAL HAS BEEN FAXED TO [facility] FOR POSSIBLE ADMISSON ON 05/14/18. WILL CONTINUE TO FOLLOW WITH PATIENT.
--- NOTE | 2018-05-12 17:48 | NUR ---
PATIENT UP FOR THERAPY AFTER EGD PROCEDURE AND TOLERATED THERAPY WELL AFTER MEDCIATION FOR PAIN PER REQUEST. IN ROOM EATING FULL LIQUID SUPPER. NO COMPLAINTS OF PAIN OR DISCOMFORT. VERY TIRED THIS EVENING. CALL LIGHT WITHIN REACH. WILL CONTINUE TO MONITOR.
[2018-05-12 19:06] VITALS: BP 104/44
--- NOTE | 2018-05-12 19:06 | NUR ---
GREETED PATIENT AND INTRODUCED MYSELF HER NURSE. PATIENT SAID SHE HAS HAD A VERY BUSY DAY TODAY. DENIES ANY NEEDS AT THIS TIME. CALL LIGHT IN REACH.
--- NOTE | 2018-05-13 00:11 | NUR ---
PATIENT AWAKE AND ADMINISTERED PRN NORCO FOR BACK PAIN. 7/10 ON 0-10 PAIN SCALE. CALL LIGHT IN REACH. TM.
--- NOTE | 2018-05-13 03:00 | NUR ---
PATIENT ASLEEP WITH EYES CLOSED LAYING IN SUPINE POSITION. HOB AT 35 DEGREES. RESPIRATIONS EVEN. NO SIGNS OF DISTRESS. 02 AT 3L VIA NC. CALL LIGHT IN REACH.
[2018-05-13 08:00] VITALS: BP 128/51
--- NOTE | 2018-05-13 08:00 | NUR ---
SHIFT ASSMT COMPLETED.CL IN REACH.BREAKFAST GIVEN.CONTAINERS OPENED.
--- NOTE | 2018-05-13 12:18 | NUR ---
Nutrition Follow Up: Chart reviewed Diet: Regular; Ensure TID PO Intake: 69% meal avg BM: 05/12/18 Labs reviewed Meds noted including Carafate, Lasix, Prednisone Rec continue current diet, supplement regimen. RD following.
--- NOTE | 2018-05-13 19:40 | NUR ---
PATIENT RECEIVED SITTING UP IN BED. ASSESSMENT DONE. PATIENT PAIN LEVEL 0. PATIENT BED LOW. ALARM ON. CALL LIGHT WITHIN REACH. WILL CONTINUE TO MONITOR.
[2018-05-13 21:34] VITALS: BP 115/49
--- NOTE | 2018-05-14 00:30 | NUR ---
PATIENT EYES CLOSED. RESPIRATIONS 18 & EVEN. BED LOW. ALARM ON. CALL LIGHT WITHIN REACH. WILL CONTINUE TO MONITOR.
--- NOTE | 2018-05-14 04:06 | NUR ---
PATIENT EYES CLOSED. RESPIRATIONS 18 & EVEN. BED LOW. ALARM ON. CALL LIGHT WITHIN REACH. WILL CONTINUE TO MONITOR.
--- NOTE | 2018-05-14 07:40 | NUR ---
PT RESTING IN BED WITH EYES OPEN CALL LIGHT IN REACH WILL MONITER
--- NOTE | 2018-05-14 07:44 | NUR ---
ALERT. SITTING UP IN CHAIR. NO C/O PAIN. CL IN REACH.
[2018-05-14 07:48] LABS: EOSINOPHILS 1.5 % (0-7); HEMATOCRIT 25.7 % (36.0-48.0); IMMATURE GRANULOCYTES 0.2 % (0-5); LYMPHOCYTES 30.2 % (15-50); MCH 26.6 pg (26.0-34.0); MCHC 31.1 g/dL (31.0-37.0); MCV 85.4 fL (80.0-100.0); MEAN PLATELET VOLUME 8.4 fL (7.4-10.4); MONOCYTES 10.3 % (2-11); NEUTROPHILS 56.8 % (40-80); PLATELET COUNT 246 10x3/uL (130-400); RBC 3.01 10x6/uL (4.00-5.40); RDW 16.2 % (11.5-14.5); WBC 4.1 10x3/uL (4.8-10.8)
[2018-05-14 08:00] VITALS: BP 129/52
[2018-05-14 08:01] LABS: CALC OSMOLALITY 279 mosm/kg (275-300); CALCIUM 9.1 mg/dL (8.5-10.1); CARBON DIOXIDE 38.1 mmol/L (21.0-32.0); CHLORIDE - SERUM 97 mmol/L (98-107); CREATININE - SERUM 0.7 mg/dL (0.6-1.3); GLUCOSE 79 mg/dL (74-106); POTASSIUM - SERUM 4.5 mmol/L (3.5-5.1); SODIUM 137 mmol/L (136-145); UREA NITROGEN 31 mg/dL (7-18); eGFR NON AFRICAN AMERICAN 84 mL/min (90-120)
--- NOTE | 2018-05-14 13:00 | NUR ---
PT DISCHARGED TO [facility] VIA WHEELCHAIR WITH FAMILY PT TOLERATED WELL REPORT CALLED TO CORRECTION
--- NOTE | 2018-05-14 13:21 | NUR ---
PATIENT DISCHARGING TO [facility] VIA FAMILY CAR. NO HOME HEALTH OR DME NEEDED AT THIS TIME. AN APPPOINTMENT WITH DR. NILAM BURGOS WILL BE MADE AT TIME OF DSICHARGE FROM THE FACILITY. PATIENT CHOICE FORM FOR SNF AND [facility] FORMS SIGNED AND FILED IN CHART. COPY GIVEN TO PATIENT. DISCHARGE INSTRUCTIONS WITH [facility] FAXED TO PCP AND TO SNF.
== END 2018-05-14 13:28 | DRG 91 ==
LOC: D.REHAB 16:01
PROVIDERS: Internal Medicine Gastroenterology; ADMIT Emergency Medicine
PROC: 0W3P8ZZ Control Bleeding in Gastrointestinal Tract, Via Natural or Artificial Opening Endoscopic (ICD-10-PCS; principal; 2018-05-12 06:51)
DX: G72.89 Other specified myopathies (principal); J96.01 Acute respiratory failure with hypoxia; J96.02 Acute respiratory failure with hypercapnia; K31.811 Angiodysplasia of stomach and duodenum with bleeding; E87.1 Hypo-osmolality and hyponatremia; E46 Unspecified protein-calorie malnutrition; Z68.1 Body mass index [BMI] 19.9 or less, adult; K22.10 Ulcer of esophagus without bleeding; J44.1 Chronic obstructive pulmonary disease with (acute) exacerbation; N17.9 Acute kidney failure, unspecified; E03.9 Hypothyroidism, unspecified; D50.9 Iron deficiency anemia, unspecified; I10 Essential (primary) hypertension; G62.9 Polyneuropathy, unspecified; R53.81 Other malaise; E87.8 Other disorders of electrolyte and fluid balance, not elsewhere classified; K44.9 Diaphragmatic hernia without obstruction or gangrene

== ENCOUNTER 2018-06-02 15:02 | Inpatient (IN) | payer MEDICARE ==
[~2018-06-02] VITALS: Ht 154.9 cm; Wt 47.9 kg
--- NOTE | 2018-06-02 15:45 | NUR ---
PT HAD 2ND BLOOD TRANSFUSING ON ARRIVAL. ALONG WITH VANCOMYCIN 1G.
[2018-06-02 16:00] VITALS: BP 102/44
[2018-06-02 16:00] LABS: HEMATOCRIT 25.3 % (36.0-48.0); HEMOGLOBIN 8.2 g/dL (12-16); MCH 27.8 pg (26.0-34.0); MCHC 32.4 g/dL (31.0-37.0); MCV 85.8 fL (80.0-100.0); MEAN PLATELET VOLUME 8.4 fL (7.4-10.4); PLATELET COUNT 228 10x3/uL (130-400); RBC 2.95 10x6/uL (4.00-5.40); RDW 15.3 % (11.5-14.5); WBC 14.5 10x3/uL (4.8-10.8)
[2018-06-02 16:30] VITALS: BP 114/43
--- NOTE | 2018-06-02 16:30 | NUR ---
VANCOMYCIN 1 G TRANSFUSION COMPLETE.
[2018-06-02 16:32] LABS: LYMPHOCYTES 12 % (15-50); NEUTROPHILS 38 % (40-80); PLATELET ESTIMATE NORMAL
[2018-06-02] MEDS ORDERED: PREDNISONE10 MG PO (16:40)
[2018-06-02] MEDS ORDERED: PROTONIX40 MG PO (16:41)
[2018-06-02] MEDS ORDERED: ELIQUIS2.5 MG PO (16:42)
[2018-06-02] MEDS ORDERED: HYDROCODON-ACE1 EA10 PO (16:43)
[2018-06-02] MEDS ORDERED: PULMICORT0.5 MG/21 INH (16:45)
[2018-06-02 17:00] VITALS: BP 126/51
--- NOTE | 2018-06-02 17:27 | NUR ---
BLOOD TRANSFUSION COMPLETED.
[2018-06-02 17:47] VITALS: BP 119/55; BMI 19.8
--- NOTE | 2018-06-02 17:58 | NUR ---
PT ARRIVED VIA STRETCHER FROM ER. PT IS A&O X4. IV IN L FA(20) AND IV IN R FA(22). BOTH ARE SL. SWAB CAPS ON BOTH. BED ALARM ON. CALL BUTTON GIVEN TO PATIENT AND ROOM ORIENTATION DONE. SEE ASSESSMENT FOR FURTHER EVAL
--- NOTE | 2018-06-02 18:16 | NUR ---
PT RESTING IN BED WITH EYES OPEN CALL LIGHT IN REACH WILL MONITER
[2018-06-02 18:54] LABS: HEMATOCRIT 29.7 % (36.0-48.0); HEMOGLOBIN 9.8 g/dL (12-16); IMMATURE GRANULOCYTES 0.7 % (0-5); MCH 28.6 pg (26.0-34.0); MCV 86.6 fL (80.0-100.0); MEAN PLATELET VOLUME 8.5 fL (7.4-10.4); PLATELET COUNT 260 10x3/uL (130-400); RBC 3.43 10x6/uL (4.00-5.40); RDW 15.2 % (11.5-14.5); WBC 13.6 10x3/uL (4.8-10.8)
--- NOTE | 2018-06-02 19:20 | NUR ---
RECIEVED LAYIN IN BED WITH EYES OPEN. ALERT AND ORIENTED X4. REQUIRES ASSIST WITH TURNING SIDE TO SIDE. 3 LITERS OF O2 PER N/C. LUNG SOUNDS INSPIRATORY WHEEZES AND CRACKLES THOUGHOUT LUNG [place]. NO EDEMA OBSERVED. IV TO RIGHT AND LEFT AC SL.. HEELS ROBERT AND PLACED ON PILLOW TO REDUCE PRESSURE. DENIES ANY NEEDS.
[2018-06-02 20:00] VITALS: BP 132/52
[2018-06-02 22:15] LABS: LYMPHOCYTES 11 % (15-50); MONOCYTES 2 % (2-11); NEUTROPHILS 46 % (40-80); PLATELET ESTIMATE NORMAL
[2018-06-02 22:16] LABS: BASOPHILS 0 % (0-2); EOSINOPHILS 0 % (0-7)
[2018-06-03] VITALS: BP 146/71
--- NOTE | 2018-06-03 00:21 | NUR ---
RECIEVED LYING IN BED WITH EYES OPEN. ALERT AND ORIENTED X3. REQUIRES ASSIST WITH ADLS. REPORTED BY OFFGOING THAT SHE RECIEVED 2 UNITS OF PRBC TODAY. IV TO RIGHT AND LEFT AC WITH BOTH SL. BOTH PATENT. REPORTED ANTONIETTA ESCOBAR POSTIVE. DENIES ANY NEEDS AT THIS TIME.
[2018-06-03 04:00] VITALS: BP 159/89
--- NOTE | 2018-06-03 04:49 | NUR ---
UNABLE TO START IV. SEVERAL NURSES ATTEMPTED INCLUDING ICU NURSE. WILL AWSK IF DIALYSIS CAN GIVE THE 2 UNITS TODAY.
--- NOTE | 2018-06-03 08:15 | NUR ---
RESUMING PT CARE, PT LAYING IN BED ALERT AND ORIENTED X3, RESPIRATIONS EVEN AND UNLABORED BUT C/O OF SHORTNESS OF BREATH, O2 SAT IS 96% ON 3L O2 VIA NC. I NOTIFIED RESPIRATORY TO BRING NEB TREATMENT. CALL LIGHT IS IN REACH, BED IN LOWEST POSITION WITH RAILS UP X2. WILL CONTINUE TO MONITOR AND FOLLOW PLAN OF CARE.
[2018-06-03 09:06] VITALS: BP 154/87
--- NOTE | 2018-06-03 12:45 | NUR ---
CNAS AT BS REPOSITIONING. CALL LIGHT IN REACH. REVIEWED AND AGREE WITH ASSESMENT.
[2018-06-03 12:49] VITALS: BP 184/91
[2018-06-03 13:47] VITALS: BMI 19.9
[2018-06-03 15:38] VITALS: Ht 154.9 cm; Wt 47.9 kg
[2018-06-03 16:17] LABS: BASOPHILS 0.1 % (0-2); EOSINOPHILS 0.1 % (0-7); HEMATOCRIT 31.1 % (36.0-48.0); HEMOGLOBIN 10.2 g/dL (12-16); IMMATURE GRANULOCYTES 0.4 % (0-5); LYMPHOCYTES 5.3 % (15-50); MCH 28.3 pg (26.0-34.0); MCHC 32.8 g/dL (31.0-37.0); MCV 86.1 fL (80.0-100.0); MEAN PLATELET VOLUME 8.3 fL (7.4-10.4); MONOCYTES 6.1 % (2-11); PLATELET COUNT 299 10x3/uL (130-400); RBC 3.61 10x6/uL (4.00-5.40); RDW 15.3 % (11.5-14.5); WBC 10.9 10x3/uL (4.8-10.8)
[2018-06-03 16:22] LABS: APTT 31.7 SECONDS (22.8-39.4); INR 1.05 (0.85-1.17); PROTIME 13.2 SECONDS (11.6-15.0)
[2018-06-03 16:24] LABS: ANION GAP 14.3 mmol/L (8-16); CALCIUM 8.7 mg/dL (8.5-10.1); CARBON DIOXIDE 25.8 mmol/L (21.0-32.0); CREATININE - SERUM 0.8 mg/dL (0.6-1.3); POTASSIUM - SERUM 4.1 mmol/L (3.5-5.1)
[2018-06-03 16:50] LABS: % SATURATION 4 % (15-55); IRON 9 ug/dl (35-150); TOTAL IRON BIND CAPACITY 202 ug/dl (260-445); UNSAT IRON BIND CAPACITY 193 ug/dl (150-375)
[2018-06-03 16:59] VITALS: BP 145/75
--- NOTE | 2018-06-03 19:30 | NUR ---
RESUMING PATIENT CARE. PATIENT IS ALERT AND ORIENTED, RESTING COMFORTABLY IN BED. NO S/S OF DISTRESS. NO C/O PAIN. RESPIRATIONS ARE EVEN AND UNLABORED. DENIES NEEDS AT THIS TIME. CALL LIGHT WITHIN REACH. WILL CPOC.
[2018-06-03 20:00] VITALS: BP 171/83
[2018-06-03 22:02] LABS: APPEARANCE CLEAR (CLEAR); BILIRUBIN NEGATIVE (NEGATIVE); COLOR YELLOW (YELLOW); GLUCOSE NEGATIVE (NEGATIVE); KETONE NEGATIVE (NEGATIVE); NITRITE NEGATIVE (NEGATIVE); PROTEIN 1+ mg/dL (NEGATIVE); UROBILINOGEN NORMAL (NORMAL)
[2018-06-03 22:03] LABS: BACTERIA MANY /hpf (NONE SEEN); EPITHELIAL CELLS OCC /hpf (0-5); RED CELLS - URINE 0-5 /hpf (0-5); WHITE CELLS - URINE 0-5 /hpf (0-5)
[2018-06-04 04:00] VITALS: BP 182/83
[2018-06-04 06:32] LABS: BASOPHILS 0.1 % (0-2); EOSINOPHILS 0.2 % (0-7); HEMATOCRIT 29.8 % (36.0-48.0); HEMOGLOBIN 9.7 g/dL (12-16); IMMATURE GRANULOCYTES 0.2 % (0-5); LYMPHOCYTES 6.8 % (15-50); MCHC 32.6 g/dL (31.0-37.0); MCV 85.9 fL (80.0-100.0); MEAN PLATELET VOLUME 8.6 fL (7.4-10.4); MONOCYTES 8.1 % (2-11); NEUTROPHILS 84.6 % (40-80); PLATELET COUNT 310 10x3/uL (130-400); RBC 3.47 10x6/uL (4.00-5.40); RDW 15.8 % (11.5-14.5)
[2018-06-04 06:44] LABS: CALC OSMOLALITY 270 mosm/kg (275-300); CALCIUM 8.9 mg/dL (8.5-10.1); CARBON DIOXIDE 26.5 mmol/L (21.0-32.0); CHLORIDE - SERUM 98 mmol/L (98-107); CREATININE - SERUM 0.6 mg/dL (0.6-1.3); GLUCOSE 83 mg/dL (74-106); POTASSIUM - SERUM 3.9 mmol/L (3.5-5.1); SODIUM 133 mmol/L (136-145); UREA NITROGEN 28 mg/dL (7-18); eGFR NON AFRICAN AMERICAN > 90 mL/min (90-120)
--- NOTE | 2018-06-04 07:30 | NUR ---
RECEIVED A/A/OX4. DENIES ANY PAIN OR DISCOMFORT AT PRESENT TIME. NO REQUESTS VOICED. REMAINS NPO PER ORDER OF . PT IS AWARE OF THIS AND VERBALIZES UNDERSTANDING.L WATER REMOVED FROM BEDSIDE. BED IN LOW POSITION AND LOCKED. SIDERAILS UP X 2 AND CALL LIGHT IN REACH. WILL CONTINUE POC.
[2018-06-04 08:57] VITALS: BP 189/83
--- NOTE | 2018-06-04 10:42 | NUR ---
REVIEWED AND AGREE WITH ASSESMENT.
--- NOTE | 2018-06-04 11:15 | NUR ---
TRIED TO CONNECT IV FOR PREOP AND NEITHER OF THE SL THAT SHE HAD WOULD INFUSE. DC'D BOTH OF THEM AND RESTARTED IN LEFT FOREARM WITH 20 GAUGE X 1 ATTEMPT. BOTH DC'D CATHS TIPS WERE INTACT. PT TOLERATED WELL.
[2018-06-04 11:30] VITALS: BP 184/97
[2018-06-04 15:30] VITALS: BP 170/86
--- NOTE | 2018-06-04 19:30 | NUR ---
RECIEVED BEDSIDE REPORT. PM ROUNDS COMPLETED. VSS, AAOX3, RR UNLABORED BUT SHALLOW, WITH EXPIRATORY WHEEZE. FAMILY AT BEDSIDE. FAMILY C/O PT NOT GETTING ENOUGH SLEEP AT NIGHT. STATES PT OPENS UP HER MOUTH WHEN SHE SLEEPS AT NIGHT. NOTIFIED RESPIRATORY. PT ALSO STATES SHE IS CLAUSTROPHOBIC AND WOULD LIKE HER DOOR OPEN WHEN SHE SLEEP AT NIGHT. A "KEEP DOOR OPEN SIGN" PLACED ON PT DOOR. PM MEDS GIVEN. PT DENIES ANY FURTHER NEEDS AT THIS TIME. WILL CPOC. CL IN REACH, BED IN LOW, SR UP X2. WILL CTM.
[2018-06-04 20:00] VITALS: BP 172/89
[2018-06-05] VITALS: BP 183/87
--- NOTE | 2018-06-05 00:51 | NUR ---
PT STATES SHE IS HAVING DIFFICULTY BREATHING. ELEVATED HOB, ASSESS PT O2 SAT 95 3L NC. NOTIFIED RESPIRATORY.
--- NOTE | 2018-06-05 03:41 | NUR ---
PT BP 193/98. REASSED. IT WAS 190/97. NOTIFIED HCP, MONIQUE. HCP ORDERED 10MG PO NORVASC. CALLED PHARMACY. WAITING ON PHARMACY TO VERIFY. WILL CTM.
[2018-06-05 04:00] VITALS: BP 193/98
--- NOTE | 2018-06-05 04:10 | NUR ---
10MG NORVASC GIVEN TO PT PER PROVIDERS ORDER. WILL CTM.
[2018-06-05 06:02] LABS: BASOPHILS 0.1 % (0-2); EOSINOPHILS 0.1 % (0-7); HEMATOCRIT 31.4 % (36.0-48.0); HEMOGLOBIN 10.2 g/dL (12-16); IMMATURE GRANULOCYTES 0.5 % (0-5); LYMPHOCYTES 5.5 % (15-50); MCH 27.9 pg (26.0-34.0); MCHC 32.5 g/dL (31.0-37.0); MCV 85.8 fL (80.0-100.0); MEAN PLATELET VOLUME 8.4 fL (7.4-10.4); MONOCYTES 9.1 % (2-11); NEUTROPHILS 84.7 % (40-80); PLATELET COUNT 281 10x3/uL (130-400); RBC 3.66 10x6/uL (4.00-5.40); RDW 15.9 % (11.5-14.5); WBC 12.5 10x3/uL (4.8-10.8)
[2018-06-05 06:15] LABS: CALC OSMOLALITY 270 mosm/kg (275-300); CALCIUM 8.9 mg/dL (8.5-10.1); CARBON DIOXIDE 26.2 mmol/L (21.0-32.0); CHLORIDE - SERUM 98 mmol/L (98-107); CREATININE - SERUM 0.6 mg/dL (0.6-1.3); POTASSIUM - SERUM 3.7 mmol/L (3.5-5.1); SODIUM 134 mmol/L (136-145); UREA NITROGEN 26 mg/dL (7-18); eGFR NON AFRICAN AMERICAN > 90 mL/min (90-120)
[2018-06-05 06:19] LABS: GLUCOSE 68 mg/dL (74-106)
--- NOTE | 2018-06-05 06:40 | NUR ---
REASSESED PT BP. BP NOW 179/78. PT RESTING IN BED WITH EYES CLOSED. WILL CTM.
[2018-06-05 08:20] LABS: FOLATE (FOLIC ACID) - SERUM 12.7 ng/mL (>3.0)
[2018-06-05 11:59] VITALS: BP 128/71
--- NOTE | 2018-06-05 12:23 | NUR ---
FAMILY REQUEST TO TAKE PT HOME ON HOSPICE, I SPOKE WITH VERÓNICA PAUL AND GOT AN ORDER TO CONSULT HOSPICE.
--- NOTE | 2018-06-05 13:34 | MORECARE ---
CASE MANAGEMENT DISCHARGE SUMMARY PATIENT: NILA HARDEN UNIT: [id number] ADM DATE: 06/02/18 AGE: 82 : 33 SEX: F ROOM/BED: D.2131 AUTHOR: RERE BAIRES PHYSICIAN: REFERRING PHYSICIAN: KARRI AMAYA MD DATE OF SERVICE: 06/05/18 Discharge Plan Patient Name: NILA HARDEN Facility: [facility]:[place] : 1935 Planned Disposition: Home with Hospice Anticipated Discharge Date: 06/05/18 Discharge Date: Expected LOS: 3 Initial Reviewer: [id number] Initial Review Date: 06/02/2018 Generated: 06/05/18 2:34 pm External Providers External Provider: [facility] Sina MARTELL Next Contact Date: 06/05/2018 Service Request Date: Service Type: Resolution: Reviewer: Comments: Patient Name: NILA HARDEN Page 22214 at 1334 All edits/amendments must be made on the electronic document DICTATION DATE: 06/05/18 1334 LOADING UNIT OPERATOR POWDER CHARGING: CODI 06/05/18 1334 RPT#: [id number] [place] DATE: STATUS: ADM IN [facility] [address] [place] [address] END OF REPORT
--- NOTE | 2018-06-05 13:42 | MORECARE ---
CASE MANAGEMENT DISCHARGE SUMMARY PATIENT: NILA HARDEN UNIT: [id number] ADM DATE: 06/02/18 AGE: 82 : 33 SEX: F ROOM/BED: D.2131 AUTHOR: RERE BAIRES PHYSICIAN: REFERRING PHYSICIAN: KARRI AMAYA MD DATE OF SERVICE: 06/05/18 Discharge Plan Patient Name: NILA HARDEN Facility: [facility]:[place] : 1935 Planned Disposition: Home with Hospice Anticipated Discharge Date: 06/05/18 Discharge Date: Expected LOS: 3 Initial Reviewer: [id number] Initial Review Date: 06/02/2018 Generated: 06/05/18 2:41 pm Last DP export: 06/05/18 12:34 p Patient Name: NILA HARDEN Page 03414 at 1342 All edits/amendments must be made on the electronic document DICTATION DATE: 06/05/18 1341 MEDIA/INSTRUCTIONAL DESIGNER: CODI 06/05/18 1341 RPT#: [id number] DC DATE: STATUS: ADM IN [facility] [address] [place] [address] END OF REPORT
--- NOTE | 2018-06-05 13:50 | MORECARE ---
CASE MANAGEMENT DISCHARGE SUMMARY PATIENT: NILA HARDEN UNIT: [id number] ADM DATE: 06/02/18 AGE: 82 : 33 SEX: F ROOM/BED: D.2131 AUTHOR: RERE BAIRES PHYSICIAN: REFERRING PHYSICIAN: KARRI AMAYA MD DATE OF SERVICE: 06/05/18 Discharge Plan Patient Name: NILA HARDEN Facility: [facility] : 1935 Planned Disposition: Home with Hospice Anticipated Discharge Date: 06/05/18 Discharge Date: Expected LOS: 3 Initial Reviewer: [id number] Initial Review Date: 06/02/2018 Generated: 06/05/18 2:50 pm DCPIA - Discharge Planning Initial Assessment Updated by [email or web address]: Danny Villarreal on 06/05/18 1:42 pm * Is the patient Alert and Oriented? Yes * How many steps to enter\exit or inside your home? RAMP * PCP DR. BURGOS IN [place] * Pharmacy [facility] IN [place] * Preadmission Environment Alf Facility * Facility Name [place] [facility] * ADLs Partial Dependent * Partial ADLs (Assistance needed) Ambulation Bathing Dressing Medication Management Toileting Transfers * Equipment Oxygen * Other Equipment HOME OXYGEN, PROVIDER IS SUJATHA * List name and contact numbers for known caregivers / representatives who currently or will assist patient after discharge: SAMMY HARDEN, SON, BETSY HARDEN, SON, ZEYAD HARDEN, SON , * Verbal permission to speak to the caregivers and representatives has been obtained from the patient. Yes * Community resources currently utilized None * Please name any agencies selected above. NONE * Additional services required to return to the preadmission environment? Yes * Can the patient safely return to the preadmission environment? Yes * Has this patient been hospitalized within the prior 30 days at any hospital? Yes Last DP export: 06/05/18 12:42 p Patient Name: NILA HARDEN Page 62782 at 1350 All edits/amendments must be made on the electronic document DICTATION DATE: 06/05/18 0201 VICE PRESIDENT FIXED INCOME: CODI 06/05/18 1349 RPT#: [id number] DC DATE: STATUS: ADM IN [facility] [address] [place] [address] END OF REPORT
--- NOTE | 2018-06-05 13:58 | MORECARE ---
CASE MANAGEMENT DISCHARGE SUMMARY PATIENT: NILA HARDEN UNIT: [id number] ADM DATE: 06/02/18 AGE: 82 : 33 SEX: F ROOM/BED: D.2134 AUTHOR: RERE BAIRES PHYSICIAN: REFERRING PHYSICIAN: KARRI AMAYA MD DATE OF SERVICE: 06/05/18 Discharge Plan Patient Name: NILA HARDEN Facility: [facility]:[place] : 1935 Planned Disposition: Home with Hospice Anticipated Discharge Date: 06/05/18 Discharge Date: Expected LOS: 3 Initial Reviewer: [id number] Initial Review Date: 06/02/2018 Generated: 06/05/18 2:58 pm Comments DCP- Discharge Planning Updated by [email or web address]: Danny Villarreal on 06/05/18 12:[address] Patient Name: NILA HARDEN Admission Status: ER Accout number: [id number] Admission Date: 06-02-2018 : 1935 Admission Diagnosis:IRON DEFICIENCY ANEMIA, UNSPECIFIED Attending: KARRI AMAYA Current LOS: 3 Anticipated DC Date: 06-05-2018 Planned Disposition: Home with Hospice Primary Insurance: MEDICARE A & B PLANNED EXTERNAL PROVIDER: [facility] Discharge Planning Comments: CM RECEIVED REQUEST TO SEE FAMILY REGARDING HOSPICE FOR PATIENT. CM MET WITH PT AND FAMILY IN ROOM TO DISCUSS DISCHARGE PLANNING AND NEEDS. NILA HARDEN provided verbal consent to discuss current and ongoing needs with/in the presence of: ZEYAD CHACON AND SAMMY HARDEN. PT WAS IN REHAB AT [facility] AND HAS HAD MULTIPLE ADMITS TO HOSPITAL AND REHAB RECENTLY. PT HAS INFORMED FAMILY THAT SHE WANTS TO GO HOME ON HOSPICE. PT TOLD CM THAT HER SON'S ARE MAKING DECISIONS NOW FOR HER AND THEY WILL BE MAKING ARRANGEMENTS FOR HER. CM PROVIDED HOSPICE LISTING, PT'S SON SAMMY INFORMED CM THAT THEY USED [facility] FOR PT'S SPOUSE AND WANT THEM NOW. CHOICE SIGNED FOR [facility]. IMPORTANT MESSAGE FROM MEDICARE PROVIDED AND EXPLAINED. CM SPOKE TO BEDSIDE NURSE, HOSPICE ORDER RECEIVED. CM CALLED [facility], , SPOKE TO DANIS WHO TOOK REFERRAL INFORMATION AND WILL HAVE HOSPICE NURSE CONTACT FAMILY AND ARRANGE ASSESSMENT OF PT AND DELIVERY OF MEDICAL EQUIPMENT FOR DISCHARGE HOME FOR HOSPICE ADMISSION ONCE PT ARRIVES AT HOME. CM FAXED REFERRAL TO [facility] AT [phone]. CM WAITING HOSPICE ADMISSION DETERMINATION AND DELIVERY OF ALL MEDICAL EQUIPMENT TO PT'S HOME BY [facility] FOR DISCHARGE HOME. Client Server Programmer: Danny Villarreal DCPIA - Discharge Planning Initial Assessment Updated by [email or web address]: Danny Villarreal on 06/05/18 1:42 pm * Is the patient Alert and Oriented? Yes * How many steps to enter\exit or inside your home? RAMP * PCP DR. BURGOS IN [place] * Pharmacy [facility] [place] * Preadmission Environment Shelter Facility * Facility Name [place] [facility] * ADLs Partial Dependent * Partial ADLs (Assistance needed) Ambulation Bathing Dressing Medication Management Toileting Transfers * Equipment Oxygen * Other Equipment HOME OXYGEN, PROVIDER IS SUJATHA * List name and contact numbers for known caregivers / representatives who currently or will assist patient after discharge: SAMMY HARDEN, SON, BETSY HARDEN, SON, ZEYAD HARDEN, SON , * Verbal permission to speak to the caregivers and representatives has been obtained from the patient. Yes * Community resources currently utilized None * Please name any agencies selected above. NONE * Additional services required to return to the preadmission environment? Yes * Can the patient safely return to the preadmission environment? Yes * Has this patient been hospitalized within the prior 30 days at any hospital? Yes Coverage Notice Reviewer: [id number] Danielle Villarreal Notice Issued Date-Time: 06/05/2018 12:35 Notice Type: Patient Choice Letter Notice Delivered To: Family Member Relationship to Patient: Son Subpoena Server Name: SAMMY HARDEN Delivery Method: HAND - Hand Delivered Sonam Days: Prior Verbal Notification: Recipient Understood Notice: Yes Recipient Signature: Yes Med Rec Note Co-signed by Attending: Coverage Notice Comment: [facility] Reviewer: [id number] Danielle Villarreal Notice Issued Date-Time: 06/05/2018 12:35 Notice Type: IM Discharge Notice Notice Delivered To: Family Member Relationship to Patient: Son Subpoena Server Name: SAMMY HARDEN Delivery Method: HAND - Hand Delivered Sonam Days: Prior Verbal Notification: Recipient Understood Notice: Yes Recipient Signature: Yes Med Rec Note Co-signed by Attending: Coverage Notice Comment: Last DP export: 06/05/18 12:50 p Patient Name: NILA HARDEN Page 85221 at 1358 All edits/amendments must be made on the electronic document DICTATION DATE: 06/05/181356 MILITARY AIRCRAFT DESIGNER: CODI 06/05/18 1357 RPT#: [id number] DC DATE: STATUS: ADM IN [facility] [address] [place] [address] END OF REPORT
--- NOTE | 2018-06-05 16:16 | MORECARE ---
CASE MANAGEMENT DISCHARGE SUMMARY PATIENT: NILA HARDEN UNIT: [id number] ADM DATE: 06/02/18 AGE: 82 : 33 SEX: F ROOM/BED: D.2131 AUTHOR: DEQUANDOC PHYSICIAN: REFERRING PHYSICIAN: KARRI AMAYA MD DATE OF SERVICE: 06/05/18 Discharge Plan Patient Name: NILA HARDEN Facility: [facility]:[place] : 1935 Planned Disposition: Home with Hospice Anticipated Discharge Date: 06/05/18 Discharge Date: Expected LOS: 3 Initial Reviewer: [id number] Initial Review Date: 06/02/2018 Generated: 06/05/18 5:16 pm Comments DCP- Discharge Planning Updated by [email or web address]: Danny Villarreal on 06/05/18 3:[address] Patient Name: NILA HARDEN Encounter No: [id number] : 1935 Primary Insurance: MEDICARE A & B Anticipated DC Date: 06-05-2018 Planned Disposition: Home with Hospice External Planned Provider: [facility] OFFICE DCP follow-up note: CM SPOKE TO PT'S SON SAMMY, WHO HAS BEEN IN CONTACT WITH [facility]. SAMMY REPORTS THAT [facility] IS WAITING ON THE PAPERWORK FOR EVALUATION OF PT FOR HOSPICE ADMISSION AND ONCE EVALUATION IS DONE, THEY WILL ARRANGE DELIVERY OF MEDICAL EQUIPMENT. SAMMY REPORTS PLAN OF HAVING ALL ARRANGEMENTS WITH HOSPICE COMPLETED FOR PT TO GO HOME 06-08-18. CM CALLED DANIS OF [facility], , WHO VERIFIED RECEIVING REFERRAL FOR HOME HOSPICE PAPERWORK AND SHE HAS PROVIDED IT TO THE HOSPICE NURSE TO COMPLETE EVALUATION. CM WAITING [facility] TO COMPLETE ARRANGEMENTS FOR ACCEPTANCE AND MEDICAL EQUIPMENT DELIVERY TO PT'S HOME. CARY Ross DCP- Discharge Planning Updated by [email or web address]: Danny Villarreal on 06/05/18 12:[address] Patient Name: NILA HARDEN Admission Status: ER Accout number: [id number] Admission Date: 06-02-2018 : 1935 Admission Diagnosis:IRON DEFICIENCY ANEMIA, UNSPECIFIED Attending: KARRI AMAYA Current LOS: 3 Anticipated DC Date: 06-05-2018 Planned Disposition: Home with Hospice Primary Insurance: MEDICARE A & B PLANNED EXTERNAL PROVIDER: [facility] OFF[facility] Discharge Planning Comments: CM RECEIVED REQUEST TO SEE FAMILY REGARDING HOSPICE FOR PATIENT. CM MET WITH PT AND FAMILY IN ROOM TO DISCUSS DISCHARGE PLANNING AND NEEDS. NILA HARDEN provided verbal consent to discuss current and ongoing needs with/in the presence of: SONS, ZEYAD AND SAMMY HARDEN. PT WAS IN REHAB AT [facility] AND HAS HAD MULTIPLE ADMITS TO HOSPITAL AND REHAB RECENTLY. PT HAS INFORMED FAMILY THAT SHE WANTS TO GO HOME ON HOSPICE. PT TOLD CM THAT HER SON'S ARE MAKING DECISIONS NOW FOR HER AND THEY WILL BE MAKING ARRANGEMENTS FOR HER. CM PROVIDED HOSPICE LISTING, PT'S SON SAMMY INFORMED CM THAT THEY USED [facility] FOR PT'S SPOUSE AND WANT THEM NOW. CHOICE SIGNED FOR [facility]. IMPORTANT MESSAGE FROM MEDICARE PROVIDED AND EXPLAINED. CM SPOKE TO BEDSIDE NURSE, HOSPICE ORDER RECEIVED. CM CALLED [facility], , SPOKE TO DANIS WHO TOOK REFERRAL INFORMATION AND WILL HAVE HOSPICE NURSE CONTACT FAMILY AND ARRANGE ASSESSMENT OF PT AND DELIVERY OF MEDICAL EQUIPMENT FOR DISCHARGE HOME FOR HOSPICE ADMISSION ONCE PT ARRIVES AT HOME. CM FAXED REFERRAL TO [facility] AT [phone]. CM WAITING HOSPICE ADMISSION DETERMINATION AND DELIVERY OF ALL MEDICAL EQUIPMENT TO PT'S HOME BY [facility] FOR DISCHARGE HOME. Surgical Nurse Practitioner: Danny Villarreal DCPIA - Discharge Planning Initial Assessment Updated by [id number]: Danny Villarreal on 06/05/18 1:42 pm * Is the patient Alert and Oriented? Yes * How many steps to enter\exit or inside your home? RAMP * PCP DR. BURGOS IN [place] * Pharmacy [facility] IN [place] * Preadmission Environment Usp Facility * Facility Name [place] [facility] * ADLs Partial Dependent * Partial ADLs (Assistance needed) Ambulation Bathing Dressing Medication Management Toileting Transfers * Equipment Oxygen * Other Equipment HOME OXYGEN, PROVIDER IS SUJATHA * List name and contact numbers for known caregivers / representatives who currently or will assist patient after discharge: SAMMY HARDEN, SON, BETSY HARDEN, SON, ZEYAD HARDEN, SON , * Verbal permission to speak to the caregivers and representatives has been obtained from the patient. Yes * Community resources currently utilized None * Please name any agencies selected above. NONE * Additional services required to return to the preadmission environment? Yes * Can the patient safely return to the preadmission environment? Yes * Has this patient been hospitalized within the prior 30 days at any hospital? Yes Coverage Notice Reviewer: [id number] Danielle Villarreal Notice Issued Date-Time: 06/05/2018 12:35 Notice Type: Patient Choice Letter Notice Delivered To: Family Member Relationship to Patient: Son Diet Aid Name: SAMMY HARDEN Delivery Method: HAND - Hand Delivered Sonam Days: Prior Verbal Notification: Recipient Understood Notice: Yes Recipient Signature: Yes Med Rec Note Co-signed by Attending: Coverage Notice Comment: [facility] Reviewer: [id number] Danielle Villarreal Notice Issued Date-Time: 06/05/2018 12:35 Notice Type: IM Discharge Notice Notice Delivered To: Family Member Relationship to Patient: Son Diet Aid Name: SAMMY HARDEN Delivery Method: HAND - Hand Delivered Sonam Days: Prior Verbal Notification: Recipient Understood Notice: Yes Recipient Signature: Yes Med Rec Note Co-signed by Attending: Coverage Notice Comment: Last DP export: 06/05/18 12:58 p Patient Name: NILA HARDEN Page 58424 at 1616 All edits/amendments must be made on the electronic document DICTATION DATE: 06/05/181615 MODEL MAKER SCALE: CODI 06/05/181615 RPT#: [id number] DC DATE: STATUS: ADM IN [facility] [address] [place] [address] END OF REPORT
--- NOTE | 2018-06-05 16:26 | MORECARE ---
CASE MANAGEMENT DISCHARGE SUMMARY PATIENT: NILA HARDEN UNIT: [id number] ADM DATE: 06/02/18 AGE: 82 : 33 SEX: F ROOM/BED: D.2131 AUTHOR: DEQUANDOC PHYSICIAN: REFERRING PHYSICIAN: KARRI AMAYA MD DATE OF SERVICE: 06/05/18 Discharge Plan Patient Name: NILA HARDEN Facility: [facility]:[place] : 1935 Planned Disposition: Home with Hospice Anticipated Discharge Date: 06/05/18 Discharge Date: Expected LOS: 3 Initial Reviewer: [id number] Initial Review Date: 06/02/2018 Generated: 06/05/18 5:26 pm Comments DCP- Discharge Planning Updated by [email or web address]: Danny Villarreal on 06/05/18 3:[address] Patient Name: NILA HARDEN Encounter No: [id number] : 1935 Primary Insurance: MEDICARE A & B Anticipated DC Date: 06-05-2018 Planned Disposition: Home with Hospice External Planned Provider: [facility] OFFICE DCP follow-up note: CM SPOKE TO PT'S SON SAMMY, WHO HAS BEEN IN CONTACT WITH [facility]. SAMMY REPORTS THAT [facility] IS WAITING ON THE PAPERWORK FOR EVALUATION OF PT FOR HOSPICE ADMISSION AND ONCE EVALUATION IS DONE, THEY WILL ARRANGE DELIVERY OF MEDICAL EQUIPMENT. SAMMY REPORTS PLAN OF HAVING ALL ARRANGEMENTS WITH HOSPICE COMPLETED FOR PT TO GO HOME 06-08-18. CM CALLED DANIS OF [facility], , WHO VERIFIED RECEIVING REFERRAL FOR HOME HOSPICE PAPERWORK AND SHE HAS PROVIDED IT TO THE HOSPICE NURSE TO COMPLETE EVALUATION. CM WAITING [facility] TO COMPLETE ARRANGEMENTS FOR ACCEPTANCE AND MEDICAL EQUIPMENT DELIVERY TO PT'S HOME. CARY Ross DCP- Discharge Planning Updated by [email or web address]: Danny Villarreal on 06/05/18 12:[address] Patient Name: NILA HARDEN Admission Status: ER Accout number: [id number] Admission Date: 06-02-2018 : 1935 Admission Diagnosis:IRON DEFICIENCY ANEMIA, UNSPECIFIED Attending: KARRI AMAYA Current LOS: 3 Anticipated DC Date: 06-05-2018 Planned Disposition: Home with Hospice Primary Insurance: MEDICARE A & B PLANNED EXTERNAL PROVIDER: [facility] OFF[facility] Discharge Planning Comments: CM RECEIVED REQUEST TO SEE FAMILY REGARDING HOSPICE FOR PATIENT. CM MET WITH PT AND FAMILY IN ROOM TO DISCUSS DISCHARGE PLANNING AND NEEDS. NILA HARDEN provided verbal consent to discuss current and ongoing needs with/in the presence of: SONS, ZEYAD AND SAMMY HARDEN. PT WAS IN REHAB AT [facility] [place] AND HAS HAD MULTIPLE ADMITS TO HOSPITAL AND REHAB RECENTLY. PT HAS INFORMED FAMILY THAT SHE WANTS TO GO HOME ON HOSPICE. PT TOLD CM THAT HER SON'S ARE MAKING DECISIONS NOW FOR HER AND THEY WILL BE MAKING ARRANGEMENTS FOR HER. CM PROVIDED HOSPICE LISTING, PT'S SON SAMMY INFORMED CM THAT THEY USED [facility] FOR PT'S SPOUSE AND WANT THEM NOW. CHOICE SIGNED FOR [facility]. IMPORTANT MESSAGE FROM MEDICARE PROVIDED AND EXPLAINED. CM SPOKE TO BEDSIDE NURSE, HOSPICE ORDER RECEIVED. CM CALLED [facility], , SPOKE TO DANIS WHO TOOK REFERRAL INFORMATION AND WILL HAVE HOSPICE NURSE CONTACT FAMILY AND ARRANGE ASSESSMENT OF PT AND DELIVERY OF MEDICAL EQUIPMENT FOR DISCHARGE HOME FOR HOSPICE ADMISSION ONCE PT ARRIVES AT HOME. CM FAXED REFERRAL TO [facility] AT [phone]. CM WAITING HOSPICE ADMISSION DETERMINATION AND DELIVERY OF ALL MEDICAL EQUIPMENT TO PT'S HOME BY [facility] FOR DISCHARGE HOME. Aviation Safety Equipment Technician: Danny Villarreal DCPIA - Discharge Planning Initial Assessment Updated by [id number]: Danny Villarreal on 06/05/18 1:42 pm * Is the patient Alert and Oriented? Yes * How many steps to enter\exit or inside your home? RAMP * PCP DR. BURGOS IN [place] * Pharmacy [facility] [place] * Preadmission Environment [facility]sp Facility * Facility Name [place] [facility] * ADLs Partial Dependent * Partial ADLs (Assistance needed) Ambulation Bathing Dressing Medication Management Toileting Transfers * Equipment Oxygen * Other Equipment HOME OXYGEN, PROVIDER IS SUJATHA * List name and contact numbers for known caregivers / representatives who currently or will assist patient after discharge: SAMMY HARDEN, SON, BETSY HARDEN, SON, ZEYAD HARDEN, SON , * Verbal permission to speak to the caregivers and representatives has been obtained from the patient. Yes * Community resources currently utilized None * Please name any agencies selected above. NONE * Additional services required to return to the preadmission environment? Yes * Can the patient safely return to the preadmission environment? Yes * Has this patient been hospitalized within the prior 30 days at any hospital? Yes Coverage Notice Reviewer: [id number] Danielle Villarreal Notice Issued Date-Time: 06/05/2018 12:35 Notice Type: Patient Choice Letter Notice Delivered To: Family Member Relationship to Patient: Son Electronic Game Developer Name: SAMMY HARDEN Delivery Method: HAND - Hand Delivered Sonam Days: Prior Verbal Notification: Recipient Understood Notice: Yes Recipient Signature: Yes Med Rec Note Co-signed by Attending: Coverage Notice Comment: [facility] Reviewer: [id number] Danielle Villarreal Notice Issued Date-Time: 06/05/2018 12:35 Notice Type: IM Discharge Notice Notice Delivered To: Family Member Relationship to Patient: Son Electronic Game Developer Name: SAMMY HARDEN Delivery Method: HAND - Hand Delivered Sonam Days: Prior Verbal Notification: Recipient Understood Notice: Yes Recipient Signature: Yes Med Rec Note Co-signed by Attending: Coverage Notice Comment: Last DP export: 06/05/18 3:16 p Patient Name: NILA HARDEN Page 71725 at 1626 All edits/amendments must be made on the electronic document DICTATION DATE: 06/05/181624 MANAGER STRATEGY & ACCOUNT: CODI 06/05/181624 RPT#: [id number] DC DATE: STATUS: ADM IN [facility] [address] [place] [address] END OF REPORT
[2018-06-05 17:31] VITALS: BP 133/76
--- NOTE | 2018-06-05 19:35 | NUR ---
RESUMING PATIENT CARE. PATIENT IS ALERT AND ORIENTED, RESTING COMFORTABLY IN BED. RESPIRATIONS ARE EVEN AND UNLABORED. NO S/S OF DISTRESS. NO C/O PAIN. DENIES NEEDS. CALL LIGHT WITHIN REACH. WILL CPOC.
[2018-06-05 20:00] VITALS: BP 143/86
--- NOTE | 2018-06-05 20:00 | NUR ---
DURING BEDSIDE REPORT WAS TOLD PATIENT WAS DNR. I WAS REVIEWING ORDERS AND DID NOT FIND A DNR ORDER, I ALSO CHECKED IN THE CHART. PATIENT STATED SHE WANTED TO TALK TO HER BOYS IN THE MORNING.
[2018-06-06] VITALS: BP 177/83
[2018-06-06 04:00] VITALS: BP 156/80
[2018-06-06 06:53] LABS: BASOPHILS 0.1 % (0-2); EOSINOPHILS 0.1 % (0-7); HEMATOCRIT 32.7 % (36.0-48.0); HEMOGLOBIN 10.4 g/dL (12-16); IMMATURE GRANULOCYTES 0.5 % (0-5); LYMPHOCYTES 6.8 % (15-50); MCH 27.7 pg (26.0-34.0); MCHC 31.8 g/dL (31.0-37.0); MEAN PLATELET VOLUME 8.4 fL (7.4-10.4); MONOCYTES 11.8 % (2-11); NEUTROPHILS 80.7 % (40-80); PLATELET COUNT 262 10x3/uL (130-400); RBC 3.76 10x6/uL (4.00-5.40); RDW 16.3 % (11.5-14.5)
[2018-06-06 07:24] LABS: CALCIUM 8.8 mg/dL (8.5-10.1); CARBON DIOXIDE 28.9 mmol/L (21.0-32.0); CHLORIDE - SERUM 99 mmol/L (98-107); CREATININE - SERUM 0.5 mg/dL (0.6-1.3); POTASSIUM - SERUM 3.5 mmol/L (3.5-5.1); SODIUM 135 mmol/L (136-145); eGFR NON AFRICAN AMERICAN > 90 mL/min (90-120)
[2018-06-06 07:30] LABS: GLUCOSE 105 mg/dL (74-106)
[2018-06-06 07:40] LABS: CALC OSMOLALITY 271 mosm/kg (275-300)
[2018-06-06 07:41] LABS: UREA NITROGEN 17 mg/dL (7-18)
--- NOTE | 2018-06-06 08:00 | NUR ---
RECIEVED BEDSIDE REPORT. AM ROUNDS COMPLETED. VSS, AAOX3, ASSESED PT LUNGS SOUNDS. PT SOUNDS CRACKLY IN ALL LOBES. PT ALSO HAVE WEAK COUGH. NO S/S DISTRESS. PALE APPEARS PALE. AM MEDS GIVEN. ASSIST PT WITH BED JOSE. PT DENIES ANY FURTHER NEEDS AT THIS TIME. WILL CPOC. CL IN REACH, BED IN LOW, SR UP X2.
[2018-06-06 08:27] VITALS: BP 139/73
--- NOTE | 2018-06-06 09:32 | MORECARE ---
CASE MANAGEMENT DISCHARGE SUMMARY PATIENT: NILA HARDEN UNIT: [id number] ADM DATE: 06/02/18 AGE: 82 : 31 SEX: F ROOM/BED: D.2131 AUTHOR: DEQUANDOC PHYSICIAN: REFERRING PHYSICIAN: KARRI AMAYA MD DATE OF SERVICE: 06/06/18 Discharge Plan Patient Name: NILA HARDEN Facility: [facility]:[place] : 1935 Planned Disposition: Home with Hospice Anticipated Discharge Date: 06/05/18 Discharge Date: Expected LOS: 3 Initial Reviewer: [id number] Initial Review Date: 06/02/2018 Generated: 06/06/18 10:32 am Comments DCP- Discharge Planning Updated by [email or web address]: Danny Villarreal on 06/06/18 8:[address] Patient Name: NILA HARDEN Encounter No: [id number] : 1935 Primary Insurance: MEDICARE A & B Anticipated DC Date: 06-05-2018 Planned Disposition: Home with Hospice External Planned Provider: [facility] DCP follow-up note: CM CALLED DANIS OF [facility], . CM ASKED WHAT THE DELAY IS FOR PT TO LEAVE AND WHY SATURDAY WAS THE DAY SPECIFIED FOR ARRANGEMENTS TO BE MADE. DANIS INFORMED CM THAT THE FAMILY ARE THE ONES THAT SPECIFIED SATURDAY AND THAT THEY WILL ORDER EQUIPMENT TODAY FOR SPECIFIED DELIVERY PER FAMILY REQUEST ON SATURDAY. IF THAT CHANGES, DANIS ASKED TO BE NOTIFIED STATING THEIR MEDICAL EQUIPMENT CAN BE DELIVERED AT ANY TIME, DAY OR NIGHT. CM NOTIFIED WHITNEY GONZALEZ. CM RECEIVED CALL FROM SAMMY FINA WHO STATED THAT [facility] CALLED AND TOLD HIM THAT PT IS DISCHARGING TODAY. CM INFORMED SAMMY THAT PT WAS DISCHARGED YESTERDAY AND THAT PT MAY LEAVE FOR HOSPICE ADMIT WHEN ALL ARRANGEMENTS ARE COMPLETED. SAMMY STATED THAT THE ARRANGEMENTS ARE NOT COMPLETED AND WILL NOT BE DONE UNTIL SATURDAY. CM ADVISED THAT HOSPICE IS READY TO ADMIT AND CAN DELIVER THE EQUIPMENT IN HOURS. SAMMY STATES THAT THEY NEED TIME TO GET PT'S HOME ACCESSIBLE FOR THE HOSPITAL BED AND WHEELCHAIR, AND THAT WILL BE SATURDAY. SAMMY REPORTS HE DISCUSSED THIS WITH DR. AMAYA YESTERDAY PRIOR TO NOTIFYING CM OF THE SATURDAY DISCHARGE DATE FOR HOSPICE. SAMMY REPORTS FAMILY WILL BE TO HOSPITAL SHORTLY. PT'S SON, SAMMY, REPORTS THAT THEY WILL NOT HAVE PT'S HOME READY TO RECEIVE PT UNTIL 06-08-18. CM WAITING FAMILY TO COMLETE ARRANGEMENTS TO RECEIVE PATIENT AT HOME, [facility] TO COMPLETE ARRANGEMENTS FOR MEDICAL EQUIPMENT DELIVERY TO PT'S HOME. FOR DISCHARGE 06-08-18, NOTIFY [facility], .WHEN PT LEAVES BY AMBULANCE, [facility] TO ADMIT PT UPON ARRIVAL AT HOME. Danny Villarreal CASE MANAGEMENT DCP- Discharge Planning Updated by [id number]: Danny Villarreal on 06/05/18 3:[address] Patient Name: NILA HARDEN Encounter No: [id number] : 1935 Primary Insurance: MEDICARE A & B Anticipated DC Date: 06-05-2018 Planned Disposition: Home with Hospice External [facility] DCP follow-up note: CM SPOKE TO PT'S SON SAMMY, WHO HAS BEEN IN CONTACT WITH [facility]. SAMMY REPORTS THAT [facility] IS WAITING ON THE PAPERWORK FOR EVALUATION OF PT FOR HOSPICE ADMISSION AND ONCE EVALUATION IS DONE, THEY WILL ARRANGE DELIVERY OF MEDICAL EQUIPMENT. SAMMY REPORTS PLAN OF HAVING ALL ARRANGEMENTS WITH HOSPICE COMPLETED FOR PT TO GO HOME 06-08-18. CM CALLED DANIS OF [facility], , WHO VERIFIED RECEIVING REFERRAL FOR HOME HOSPICE PAPERWORK AND SHE HAS PROVIDED IT TO THE HOSPICE NURSE TO COMPLETE EVALUATION. CM WAITING [facility] TO COMPLETE ARRANGEMENTS FOR ACCEPTANCE AND MEDICAL EQUIPMENT DELIVERY TO PT'S HOME. Danny Villarreal CASE MANAGEMENT DCP- Discharge Planning Updated by [id number]: Danny Villarreal on 06/05/18 12:[address] Patient Name: NILA HARDEN Admission Status: ER Accout number: [id number] Admission Date: 06-02-2018 : 1935 Admission Diagnosis:IRON DEFICIENCY ANEMIA, UNSPECIFIED Attending: KARRI AMAYA Current LOS: 3 Anticipated DC Date: 06-05-2018 Planned Disposition: Home with Hospice Primary Insurance: MEDICARE A & B PLANNED [facility]TERNAL [facility] Discharge Planning Comments: CM RECEIVED REQUEST TO SEE FAMILY REGARDING HOSPICE FOR PATIENT. CM MET WITH PT AND FAMILY IN ROOM TO DISCUSS DISCHARGE PLANNING AND NEEDS. NILA HARDEN provided verbal consent to discuss current and ongoing needs with/in the presence of: ZEYAD CHACON AND SAMMY HARDEN. PT WAS IN REHAB AT [facility] AND HAS HAD MULTIPLE ADMITS TO HOSPITAL AND REHAB RECENTLY. PT HAS INFORMED FAMILY THAT SHE WANTS TO GO HOME ON HOSPICE. PT TOLD CM THAT HER SON'S ARE MAKING DECISIONS NOW FOR HER AND THEY WILL BE MAKING ARRANGEMENTS FOR HER. CM PROVIDED HOSPICE LISTING, PT'S SON SAMMY INFORMED CM THAT THEY USED [facility] FOR PT'S SPOUSE AND WANT THEM NOW. CHOICE SIGNED FOR [facility]OS[facility]. IMPORTANT MESSAGE FROM MEDICARE PROVIDED AND EXPLAINED. CM SPOKE TO BEDSIDE NURSE, HOSPICE ORDER RECEIVED. CM CALLED [facility], , SPOKE TO DANIS WHO TOOK REFERRAL INFORMATION AND WILL HAVE HOSPICE NURSE CONTACT FAMILY AND ARRANGE ASSESSMENT OF PT AND DELIVERY OF MEDICAL EQUIPMENT FOR DISCHARGE HOME FOR HOSPICE ADMISSION ONCE PT ARRIVES AT HOME. CM FAXED REFERRAL TO [facility] AT [phone]. CM WAITING HOSPICE ADMISSION DETERMINATION AND DELIVERY OF ALL MEDICAL EQUIPMENT TO PT'S HOME BY [facility] FOR DISCHARGE HOME. Occupational Medicine Specialist: Danny Vill[facility]real [facility] - Discharge Planning Initial Assessment Updated by [id number]: Danny Villarreal on 06/05/18 1:42 pm * Is the patient Alert and Oriented? Yes * How many steps to enter\exit or inside your home? RAMP * PCP DR. BURGOS IN [place] * Pharmacy [facility] [place] * Preadmission Environment Care Home Facility * Facility Name [facility] * ADLs Partial Dependent * Partial ADLs (Assistance needed) Ambulation Bathing Dressing Medication Management Toileting Transfers * Equipment Oxygen * Other Equipment HOME OXYGEN, PROVIDER IS SUJATHA * List name and contact numbers for known caregivers / representatives who currently or will assist patient after discharge: SAMMY HARDEN, SON, BETSY HARDEN, SON, ZEYAD HARDEN, SON , * Verbal permission to speak to the caregivers and representatives has been obtained from the patient. Yes * Community resources currently utilized None * Please name any agencies selected above. NONE * Additional services required to return to the preadmission environment? Yes * Can the patient safely return to the preadmission environment? Yes * Has this patient been hospitalized within the prior 30 days at any hospital? Yes Coverage Notice Reviewer: [id number] Danielle Villarreal Notice Issued Date-Time: 06/05/2018 12:35 Notice Type: Patient Choice Letter Notice Delivered To: Family Member Relationship to Patient: Son Clinical Liaison Name: SAMMY HARDEN Delivery Method: HAND - Hand Delivered Sonam Days: Prior Verbal Notification: Recipient Understood Notice: Yes Recipient Signature: Yes Med Rec Note Co-signed by Attending: Coverage Notice Comment: [facility] Reviewer: [id number] Danielle Villarreal Notice Issued Date-Time: 06/05/2018 12:35 Notice Type: IM Discharge Notice Notice Delivered To: Family Member Relationship to Patient: Son Clinical Liaison Name: SAMMY HARDEN Delivery Method: HAND - Hand Delivered Sonam Days: Prior Verbal Notification: Recipient Understood Notice: Yes Recipient Signature: Yes Med Rec Note Co-signed by Attending: Coverage Notice Comment: Last DP export: 06/05/18 3:26 p Patient Name: NILA HARDEN Page 48713 at 0932 All edits/amendments must be made on the electronic document DICTATION DATE: 06/06/18931 WASH DRILLER: CODI 06/06/18931 RPT#: [id number] DC DATE: STATUS: ADM IN [facility] [address] [place] [address] END OF REPORT
[2018-06-06 11:50] VITALS: BP 152/80
--- NOTE | 2018-06-06 12:57 | MORECARE ---
CASE MANAGEMENT DISCHARGE SUMMARY PATIENT: NILA HARDEN UNIT: [id number] ADM DATE: 06/02/18 AGE: 82 : 33 SEX: F ROOM/BED: D.2131 AUTHOR: DEQUANDOC PHYSICIAN: REFERRING PHYSICIAN: KARRI AMAYA MD DATE OF SERVICE: 06/06/18 Discharge Plan Patient Name: NILA HARDEN Facility: [facility]:[place] : 1935 Planned Disposition: Home with Hospice Anticipated Discharge Date: 06/05/18 Discharge Date: Expected LOS: 3 Initial Reviewer: [id number] Initial Review Date: 06/02/2018 Generated: 06/06/18 1:57 pm Comments DCP- Discharge Planning Updated by [id number]: Montez Tucker on 06/06/18 11:[address] Patient Name: NILA HARDEN Encounter No: [id number] : 1935 Primary Insurance: MEDICARE A & B Anticipated DC Date: 06-05-2018 Planned Disposition: Home with Hospice External Planned Provider: [facility] DCP follow-up note: CM CALLED DANIS OF [facility], . CM ASKED WHAT THE DELAY IS FOR PT TO LEAVE AND WHY SATURDAY WAS THE DAY SPECIFIED FOR ARRANGEMENTS TO BE MADE. DANIS INFORMED CM THAT THE FAMILY ARE THE ONES THAT SPECIFIED SATURDAY AND THAT THEY WILL ORDER EQUIPMENT TODAY FOR SPECIFIED DELIVERY PER FAMILY REQUEST ON SATURDAY. IF THAT CHANGES, DANIS ASKED TO BE NOTIFIED STATING THEIR MEDICAL EQUIPMENT CAN BE DELIVERED AT ANY TIME, DAY OR NIGHT. CM NOTIFIED WHITNEY OGNZALEZ. CM RECEIVED CALL FROM SAMMY FINA WHO STATED THAT [facility] CALLED AND TOLD HIM THAT PT IS DISCHARGING TODAY. CM INFORMED SAMMY THAT PT WAS DISCHARGED YESTERDAY AND THAT PT MAY LEAVE FOR HOSPICE ADMIT WHEN ALL ARRANGEMENTS ARE COMPLETED. SAMMY STATED THAT THE ARRANGEMENTS ARE NOT COMPLETED AND WILL NOT BE DONE UNTIL SATURDAY. CM ADVISED THAT HOSPICE IS READY TO ADMIT AND CAN DELIVER THE EQUIPMENT IN HOURS. SAMMY STATES THAT THEY NEED TIME TO GET PT'S HOME ACCESSIBLE FOR THE HOSPITAL BED AND WHEELCHAIR, AND THAT WILL BE SATURDAY. SAMMY REPORTS HE DISCUSSED THIS WITH DR. AMAYA YESTERDAY PRIOR TO NOTIFYING CM OF THE SATURDAY DISCHARGE DATE FOR HOSPICE. SAMMY REPORTS FAMILY WILL BE TO HOSPITAL SHORTLY. PT'S SON, SAMMY, REPORTS THAT THEY WILL NOT HAVE PT'S HOME READY TO RECEIVE PT UNTIL 06-08-18. CM WAITING FAMILY TO COMLETE ARRANGEMENTS TO RECEIVE PATIENT AT HOME, [facility] TO COMPLETE ARRANGEMENTS FOR MEDICAL EQUIPMENT DELIVERY TO PT'S HOME. FOR DISCHARGE 06-08-18, NOTIFY [facility], .WHEN PT LEAVES BY AMBULANCE, [facility] TO ADMIT PT UPON ARRIVAL AT HOME. Montez Tucker, CASE MANAGEMENT Appended by Montez Tucker on 06/06/2018 12:53 REGULATORY ASSISTANT: CM SPOKE TO SAMMY HARDEN AT [facility], SAMMY REPORTS THAT HE HAS TALKED TO HOSPICE AND THEY ARE NOW MAKING ARRANGEMENTS FOR PT TO DISCHARGE HOME TOMORROW, 06-07-18. CM SPOKE TO DANIS OF [facility], , WHO INFORMED CM THAT THEY ARE ORDERING EQUIPMENT FOR DELIVERY AND SET UP NOW. CM VERIFIED SOCIAL SECURITY NUMBER AND INSURANCE INFORMATION, FAXED FACE SHEET TO [facility] AT [phone]. FOR DISCHARGE ON 06-07-18, NOTIFY [facility], , WHEN PT LEAVES HOSPITAL BY AMBULANCE. FAX DISCHARGE INFORMATION TO [facility] AT [phone]. [facility] TO ADMIT PT UPON ARRIVAL AT HOME. MONTEZ TUCKER,CASE MANAGEMENT DCP- Discharge Planning Updated by [id number]: Montez Tucker on 06/05/18 3:[address] Patient Name: NILA HARDEN Encounter No: [id number] : 1935 Primary Insurance: MEDICARE A & B Anticipated DC Date: 06-05-2018 Planned Disposition: Home with Hospice External [facility] DCP follow-up note: CM SPOKE TO PT'S SON SAMMY, WHO HAS BEEN IN CONTACT WITH [facility]. SAMMY REPORTS THAT [facility] IS WAITING ON THE PAPERWORK FOR EVALUATION OF PT FOR HOSPICE ADMISSION AND ONCE EVALUATION IS DONE, THEY WILL ARRANGE DELIVERY OF MEDICAL EQUIPMENT. SAMMY REPORTS PLAN OF HAVING ALL ARRANGEMENTS WITH HOSPICE COMPLETED FOR PT TO GO HOME 06-08-18. CM CALLED DANIS OF [facility], , WHO VERIFIED RECEIVING REFERRAL FOR HOME HOSPICE PAPERWORK AND SHE HAS PROVIDED IT TO THE HOSPICE NURSE TO COMPLETE EVALUATION. CM WAITING [facility] TO COMPLETE ARRANGEMENTS FOR ACCEPTANCE AND MEDICAL EQUIPMENT DELIVERY TO PT'S HOME. Montez Tucker, CASE MANAGEMENT DCP- Discharge Planning Updated by [id number]: Montez Tucker on 06/05/18 12:[address] Patient Name: NILA HARDEN Admission Status: ER Accout number: [id number] Admission Date: 06-02-2018 : 1935 Admission Diagnosis:IRON DEFICIENCY ANEMIA, UNSPECIFIED Attending: KARRI AMAYA Current LOS: 3 Anticipated DC Date: 06-05-2018 Planned Disposition: Home with Hospice Primary Insurance: MEDICARE A & B PLANNED EXTERNAL PROVIDER: [facility] Discharge Planning Comments: CM RECEIVED REQUEST TO SEE FAMILY REGARDING HOSPICE FOR PATIENT. CM MET WITH PT AND FAMILY IN ROOM TO DISCUSS DISCHARGE PLANNING AND NEEDS. NILA HARDEN provided verbal consent to discuss current and ongoing needs with/in the presence of: ZEYAD CHACON AND SAMMY HARDEN. PT WAS IN REHAB AT [facility] AND HAS HAD MULTIPLE ADMITS TO HOSPITAL AND REHAB RECENTLY. PT HAS INFORMED FAMILY THAT SHE WANTS TO GO HOME ON HOSPICE. PT TOLD CM THAT HER SON'S ARE MAKING DECISIONS NOW FOR HER AND THEY WILL BE MAKING ARRANGEMENTS FOR HER. CM PROVIDED HOSPICE LISTING, PT'S SON SAMMY INFORMED CM THAT THEY USED [facility] FOR PT'S SPOUSE AND WANT THEM NOW. CHOICE SIGNED FOR [facility]OS[facility]. IMPORTANT MESSAGE FROM MEDICARE PROVIDED AND EXPLAINED. CM SPOKE TO BEDSIDE NURSE, HOSPICE ORDER RECEIVED. CM CALLED [facility], , SPOKE TO DANIS WHO TOOK REFERRAL INFORMATION AND WILL HAVE HOSPICE NURSE CONTACT FAMILY AND ARRANGE ASSESSMENT OF PT AND DELIVERY OF MEDICAL EQUIPMENT FOR DISCHARGE HOME FOR HOSPICE ADMISSION ONCE PT ARRIVES AT HOME. CM FAXED REFERRAL TO [facility] AT [phone]. CM WAITING HOSPICE ADMISSION DETERMINATION AND DELIVERY OF ALL MEDICAL EQUIPMENT TO PT'S HOME BY [facility] FOR DISCHARGE HOME. Linux System Engineer: Montez Tucker [facility] - Discharge Planning Initial Assessment Updated by [id number]: Montez Tucker on 06/05/18 1:42 pm * Is the patient Alert and Oriented? Yes * How many steps to enter\exit or inside your home? RAMP * PCP DR. BURGOS IN [place] * Pharmacy [facility] IN [place] * Preadmission Environment Jail Facility * Facility Name [facility] [facility] * ADLs Partial Dependent * Partial ADLs (Assistance needed) Ambulation Bathing Dressing Medication Management Toileting Transfers * Equipment Oxygen * Other Equipment HOME OXYGEN, PROVIDER IS SUJATHA * List name and contact numbers for known caregivers / representatives who currently or will assist patient after discharge: SAMMY HARDEN, SON, BETSY HARDEN, SON, ZEYAD HARDEN, SON , * Verbal permission to speak to the caregivers and representatives has been obtained from the patient. Yes * Community resources currently utilized None * Please name any agencies selected above. NONE * Additional services required to return to the preadmission environment? Yes * Can the patient safely return to the preadmission environment? Yes * Has this patient been hospitalized within the prior 30 days at any hospital? Yes Coverage Notice Reviewer: [id number] Danielle Tucker Notice Issued Date-Time: 06/05/2018 12:35 Notice Type: Patient Choice Letter Notice Delivered To: Family Member Relationship to Patient: Son Cell Phone Repair Technician Name: SAMMY HAREDN Delivery Method: HAND - Hand Delivered Sonam Days: Prior Verbal Notification: Recipient Understood Notice: Yes Recipient Signature: Yes Med Rec Note Co-signed by Attending: Coverage Notice Comment: [facility] Reviewer: [id number] Danielle Tucker Notice Issued Date-Time: 06/05/2018 12:35 Notice Type: IM Discharge Notice Notice Delivered To: Family Member Relationship to Patient: Son Cell Phone Repair Technician Name: SAMMY HARDEN Delivery Method: HAND - Hand Delivered Sonam Days: Prior Verbal Notification: Recipient Understood Notice: Yes Recipient Signature: Yes Med Rec Note Co-signed by Attending: Coverage Notice Comment: Last DP export: 06/06/18 8:32 am Patient Name: NILA HARDEN Page 74438 at 1257 All edits/amendments must be made on the electronic document DICTATION DATE: 06/06/18 1257 TAR DISTRIBUTOR OPERATOR: CODI 06/06/18 1257 RPT#: [id number] DC DATE: STATUS: ADM IN [facility] [address] [place] [address] END OF REPORT
--- NOTE | 2018-06-06 17:32 | MORECARE ---
CASE MANAGEMENT DISCHARGE SUMMARY PATIENT: NILA HARDEN UNIT: [id number] ADM DATE: 06/02/18 AGE: 82 : 33 SEX: F ROOM/BED: D.2131 AUTHOR: DEQUANDOC PHYSICIAN: REFERRING PHYSICIAN: KARRI AMAYA MD DATE OF SERVICE: 06/06/18 Discharge Plan Patient Name: NILA HARDEN Facility: [facility]:[place] : 1935 Planned Disposition: Home with Hospice Anticipated Discharge Date: 06/07/18 Discharge Date: Expected LOS: 5 Initial Reviewer: [id number] Initial Review Date: 06/02/2018 Generated: 06/06/18 6:32 pm Comments DCP- Discharge Planning Updated by [id number]: Montez Tucker on 06/06/18 11:[address] Patient Name: NILA HARDEN Encounter No: [id number] : 1935 Primary Insurance: MEDICARE A & B Anticipated DC Date: 06-05-2018 Planned Disposition: Home with Hospice External Planned Provider: [facility] DCP follow-up note: CM CALLED DANIS OF [facility], . CM ASKED WHAT THE DELAY IS FOR PT TO LEAVE AND WHY SATURDAY WAS THE DAY SPECIFIED FOR ARRANGEMENTS TO BE MADE. DANIS INFORMED CM THAT THE FAMILY ARE THE ONES THAT SPECIFIED SATURDAY AND THAT THEY WILL ORDER EQUIPMENT TODAY FOR SPECIFIED DELIVERY PER FAMILY REQUEST ON SATURDAY. IF THAT CHANGES, DANIS ASKED TO BE NOTIFIED STATING THEIR MEDICAL EQUIPMENT CAN BE DELIVERED AT ANY TIME, DAY OR NIGHT. CM NOTIFIED WHITNEY GONZALEZ. CM RECEIVED CALL FROM SAMMY FINA WHO STATED THAT [facility] CALLED AND TOLD HIM THAT PT IS DISCHARGING TODAY. CM INFORMED SAMMY THAT PT WAS DISCHARGED YESTERDAY AND THAT PT MAY LEAVE FOR HOSPICE ADMIT WHEN ALL ARRANGEMENTS ARE COMPLETED. SAMMY STATED THAT THE ARRANGEMENTS ARE NOT COMPLETED AND WILL NOT BE DONE UNTIL SATURDAY. CM ADVISED THAT HOSPICE IS READY TO ADMIT AND CAN DELIVER THE EQUIPMENT IN HOURS. SAMMY STATES THAT THEY NEED TIME TO GET PT'S HOME ACCESSIBLE FOR THE HOSPITAL BED AND WHEELCHAIR, AND THAT WILL BE SATURDAY. SAMMY REPORTS HE DISCUSSED THIS WITH DR. AMAYA YESTERDAY PRIOR TO NOTIFYING CM OF THE SATURDAY DISCHARGE DATE FOR HOSPICE. SAMMY REPORTS FAMILY WILL BE TO HOSPITAL SHORTLY. PT'S SON, SAMMY, REPORTS THAT THEY WILL NOT HAVE PT'S HOME READY TO RECEIVE PT UNTIL 06-08-18. CM WAITING FAMILY TO COMLETE ARRANGEMENTS TO RECEIVE PATIENT AT HOME, [facility] TO COMPLETE ARRANGEMENTS FOR MEDICAL EQUIPMENT DELIVERY TO PT'S HOME. FOR DISCHARGE 06-08-18, NOTIFY [facility], .WHEN PT LEAVES BY AMBULANCE, [facility] TO ADMIT PT UPON ARRIVAL AT HOME. Montez Tucker, CASE MANAGEMENT Appended by Montez Tucker on 06/06/2018 12:53 UNEMPLOYMENT BENEFITS CLAIMS TAKER: CM SPOKE TO SAMMY HARDEN AT NURSES ST[facility], SAMMY REPORTS THAT HE HAS TALKED TO HOSPICE AND THEY ARE NOW MAKING ARRANGEMENTS FOR PT TO DISCHARGE HOME TOMORROW, 06-07-18. CM SPOKE TO DANIS OF [facility], , WHO INFORMED CM THAT THEY ARE ORDERING EQUIPMENT FOR DELIVERY AND SET UP NOW. CM VERIFIED SOCIAL SECURITY NUMBER AND INSURANCE INFORMATION, FAXED FACE SHEET TO [facility] AT [phone]. FOR DISCHARGE ON 06-07-18, NOTIFY [facility], , WHEN PT LEAVES HOSPITAL BY AMBULANCE. FAX DISCHARGE INFORMATION TO [facility] AT [phone]. [facility] TO ADMIT PT UPON ARRIVAL AT HOME. MONTEZ TUCKER,CASE MANAGEMENT DCP- Discharge Planning Updated by [id number]: Montez Tucker on 06/05/18 3:[address] Patient Name: NILA HARDEN Encounter No: [id number] : 1935 Primary Insurance: MEDICARE A & B Anticipated DC Date: 06-05-2018 Planned Disposition: Home with Hospice External [facility] DCP follow-up note: CM SPOKE TO PT'S SON SAMMY, WHO HAS BEEN IN CONTACT WITH [facility]. SAMMY REPORTS THAT [facility] IS WAITING ON THE PAPERWORK FOR EVALUATION OF PT FOR HOSPICE ADMISSION AND ONCE EVALUATION IS DONE, THEY WILL ARRANGE DELIVERY OF MEDICAL EQUIPMENT. SAMMY REPORTS PLAN OF HAVING ALL ARRANGEMENTS WITH HOSPICE COMPLETED FOR PT TO GO HOME 06-08-18. CM CALLED DANIS OF [facility], , WHO VERIFIED RECEIVING REFERRAL FOR HOME HOSPICE PAPERWORK AND SHE HAS PROVIDED IT TO THE HOSPICE NURSE TO COMPLETE EVALUATION. CM WAITING [facility] TO COMPLETE ARRANGEMENTS FOR ACCEPTANCE AND MEDICAL EQUIPMENT DELIVERY TO PT'S HOME. Montez Tucker, CASE MANAGEMENT DCP- Discharge Planning Updated by [id number]: Montez Tucker on 06/05/18 12:[address] Patient Name: NILA HARDEN Admission Status: ER Accout number: [id number] Admission Date: 06-02-2018 : 1935 Admission Diagnosis:IRON DEFICIENCY ANEMIA, UNSPECIFIED Attending: KARRI AMAYA Current LOS: 3 Anticipated DC Date: 06-05-2018 Planned Disposition: Home with Hospice Primary Insurance: MEDICARE A & B PLANNED EXTERNAL PROVIDER: [facility] [place] [facility] Discharge Planning Comments: CM RECEIVED REQUEST TO SEE FAMILY REGARDING HOSPICE FOR PATIENT. CM MET WITH PT AND FAMILY IN ROOM TO DISCUSS DISCHARGE PLANNING AND NEEDS. NILA HARDEN provided verbal consent to discuss current and ongoing needs with/in the presence of: ZEYAD CHACON AND SAMMY HARDEN. PT WAS IN REHAB AT [facility] AND HAS HAD MULTIPLE ADMITS TO HOSPITAL AND REHAB RECENTLY. PT HAS INFORMED FAMILY THAT SHE WANTS TO GO HOME ON HOSPICE. PT TOLD CM THAT HER SON'S ARE MAKING DECISIONS NOW FOR HER AND THEY WILL BE MAKING ARRANGEMENTS FOR HER. CM PROVIDED HOSPICE LISTING, PT'S SON SAMMY INFORMED CM THAT THEY USED [facility] FOR PT'S SPOUSE AND WANT THEM NOW. CHOICE SIGNED FOR [facility]. IMPORTANT MESSAGE FROM MEDICARE PROVIDED AND EXPLAINED. CM SPOKE TO BEDSIDE NURSE, HOSPICE ORDER RECEIVED. CM CALLED [facility], , SPOKE TO DANIS WHO TOOK REFERRAL INFORMATION AND WILL HAVE HOSPICE NURSE CONTACT FAMILY AND ARRANGE ASSESSMENT OF PT AND DELIVERY OF MEDICAL EQUIPMENT FOR DISCHARGE HOME FOR HOSPICE ADMISSION ONCE PT ARRIVES AT HOME. CM FAXED REFERRAL TO [facility] AT [phone]. CM WAITING HOSPICE ADMISSION DETERMINATION AND DELIVERY OF ALL MEDICAL EQUIPMENT TO PT'S HOME BY [facility] FOR DISCHARGE HOME. Control Electrician: Montez Tucker DCPIA - Discharge Planning Initial Assessment Updated by [id number]: Montez Tucker on 06/05/18 1:42 pm * Is the patient Alert and Oriented? Yes * How many steps to enter\exit or inside your home? RAMP * PCP DR. BURGOS IN [place] * Pharmacy [facility] IN [place] * Preadmission Environment Care Home Facility * Facility Name [facility] * ADLs Partial Dependent * Partial ADLs (Assistance needed) Ambulation Bathing Dressing Medication Management Toileting Transfers * Equipment Oxygen * Other Equipment HOME OXYGEN, PROVIDER IS SUJATHA * List name and contact numbers for known caregivers / representatives who currently or will assist patient after discharge: SAMMY HARDEN, SON, BETSY HARDEN, SON, ZEYAD HARDEN, SON , * Verbal permission to speak to the caregivers and representatives has been obtained from the patient. Yes * Community resources currently utilized None * Please name any agencies selected above. NONE * Additional services required to return to the preadmission environment? Yes * Can the patient safely return to the preadmission environment? Yes * Has this patient been hospitalized within the prior 30 days at any hospital? Yes Coverage Notice Reviewer: [id number] Danielle Tucker Notice Issued Date-Time: 06/05/2018 12:35 Notice Type: Patient Choice Letter Notice Delivered To: Family Member Relationship to Patient: Son Corporate Webmaster Name: SAMMY HARDEN Delivery Method: HAND - Hand Delivered Sonam Days: Prior Verbal Notification: Recipient Understood Notice: Yes Recipient Signature: Yes Med Rec Note Co-signed by Attending: Coverage Notice Comment: [facility] Reviewer: [id number] Danielle Tucker Notice Issued Date-Time: 06/05/2018 12:35 Notice Type: IM Discharge Notice Notice Delivered To: Family Member Relationship to Patient: Son Corporate Webmaster Name: SAMMY HARDEN Delivery Method: HAND - Hand Delivered Sonam Days: Prior Verbal Notification: Recipient Understood Notice: Yes Recipient Signature: Yes Med Rec Note Co-signed by Attending: Coverage Notice Comment: Last DP export: 06/06/18 11:57 am Patient Name: NILA HARDEN Page [id number] at 1732 All edits/amendments must be made on the electronic document DICTATION DATE: 06/06/18 2153 MANAGER CORPORATE: CODI 06/06/18 1731 RPT#: [id number] DC DATE: STATUS: ADM IN [facility] [address] [place] [address] END OF REPORT
--- NOTE | 2018-06-06 19:30 | NUR ---
RESUMING PATIENT CARE. PATIENT IS ALERT AND ORIENTED, RESTING COMFORTABLY IN BED. RESPIRATIONS ARE EVEN AND UNLABORED. DENIES NEEDS AT THIS TIME. NO S/S OF DISTRESS. NO C/O PAIN. CALL LIGHT WITHIN REACH. WILL CPOC.
[2018-06-06 20:00] VITALS: BP 158/73
--- NOTE | 2018-06-07 00:56 | NUR ---
PATIENT RESTING COMFORTABLY IN BED. RESPIRATIONS EVEN AND UNLABORED. NO S/S OF DISTRESS. NO C/O PAIN. CALL LIGHT WITHIN REACH. WILL CPOC.
[2018-06-07 04:00] VITALS: BP 156/80
[2018-06-07 06:52] LABS: BASOPHILS 0.1 % (0-2); EOSINOPHILS 0.3 % (0-7); HEMATOCRIT 32.5 % (36.0-48.0); HEMOGLOBIN 10.2 g/dL (12-16); IMMATURE GRANULOCYTES 0.5 % (0-5); LYMPHOCYTES 8.9 % (15-50); MCH 27.6 pg (26.0-34.0); MCHC 31.4 g/dL (31.0-37.0); MCV 87.8 fL (80.0-100.0); MEAN PLATELET VOLUME 8.4 fL (7.4-10.4); MONOCYTES 10.6 % (2-11); NEUTROPHILS 79.6 % (40-80); PLATELET COUNT 292 10x3/uL (130-400); RDW 16.3 % (11.5-14.5)
[2018-06-07 07:04] LABS: CALC OSMOLALITY 275 mosm/kg (275-300); CALCIUM 8.7 mg/dL (8.5-10.1); CARBON DIOXIDE 31.2 mmol/L (21.0-32.0); CHLORIDE - SERUM 100 mmol/L (98-107); CREATININE - SERUM 0.5 mg/dL (0.6-1.3); GLUCOSE 97 mg/dL (74-106); POTASSIUM - SERUM 3.4 mmol/L (3.5-5.1); SODIUM 138 mmol/L (136-145); UREA NITROGEN 13 mg/dL (7-18); WBC 10.6 10x3/uL (4.8-10.8); eGFR NON AFRICAN AMERICAN > 90 mL/min (90-120)
--- NOTE | 2018-06-07 09:10 | NUR ---
PT'S FAMILY AT BEDSIDE AND STATES THAT SHE IS BEING D/C TODAY TO HOME ON HOSPICE. THERE ARE D/C ORDERS THAT SAY SHE CAN D/C SOON HOSPICE IS READY. I SPOKE WITH NACHO RN [facility] [place], [place] AND SHE SAID THAT YES THEY ARE READY FOR HER TODAY AND ARE CURRENTLY SETTING EVERYTHING UP AT PT'S HOME AT THIS TIME. [facility] NOTIFIED TO COME TRANSFER HER. CALL LIGHT IN REACH, FAMILY HERE. WILL CONTINUE TO MONITOR.
[2018-06-07 09:16] VITALS: BP 171/84
--- NOTE | 2018-06-07 12:22 | NUR ---
D/C INSTRUCTIONS GIVEN TO PT AND FAMILY, TAKEN VIA EMS.
--- NOTE | 2018-06-07 17:10 | MORECARE ---
CASE MANAGEMENT DISCHARGE SUMMARY PATIENT: NILA HARDEN UNIT: [id number] ADM DATE: 06/02/18 AGE: 82 : 33 SEX: F ROOM/BED: D.2136 AUTHOR: DEQUANDOC PHYSICIAN: REFERRING PHYSICIAN: KARRI AMAYA MD DATE OF SERVICE: 06/07/18 Discharge Plan Patient Name: NILA HARDEN Facility: [facility]:[place] : 1935 Planned Disposition: Home with Hospice Anticipated Discharge Date: 06/07/18 Discharge Date: 06/07/2018 Expected LOS: 5 Initial Reviewer: [id number] Initial Review Date: 06/02/2018 Generated: 06/07/18 6:10 pm Comments DCP- Discharge Planning Updated by [id number]: Jolynn Palma on 06/07/18 4:[address] LATE ENTRY 1300 DISCHARGE TO HOME VIA AMBULANCE FOR ADMISSION WITH [facility]. DCP- Discharge Planning Updated by [id number]: Montez Tucker on 06/06/18 11:[address] Patient Name: NILA HARDEN Encounter No: [id number] : 1935 Primary Insurance: MEDICARE A & B Anticipated DC Date: 06-05-2018 Planned Disposition: Home with Hospice External [facility] DCP follow-up note: CM CALLED DANIS OF [facility], . CM ASKED WHAT THE DELAY IS FOR PT TO LEAVE AND WHY SATURDAY WAS THE DAY SPECIFIED FOR ARRANGEMENTS TO BE MADE. DANIS INFORMED CM THAT THE FAMILY ARE THE ONES THAT SPECIFIED SATURDAY AND THAT THEY WILL ORDER EQUIPMENT TODAY FOR SPECIFIED DELIVERY PER FAMILY REQUEST ON SATURDAY. IF THAT CHANGES, DANIS ASKED TO BE NOTIFIED STATING THEIR MEDICAL EQUIPMENT CAN BE DELIVERED AT ANY TIME, DAY OR NIGHT. CM NOTIFIED WHITNEY GONZALEZ. CM RECEIVED CALL FROM SAMMY FINA WHO STATED THAT [facility] CALLED AND TOLD HIM THAT PT IS DISCHARGING TODAY. CM INFORMED SAMMY THAT PT WAS DISCHARGED YESTERDAY AND THAT PT MAY LEAVE FOR HOSPICE ADMIT WHEN ALL ARRANGEMENTS ARE COMPLETED. SAMMY STATED THAT THE ARRANGEMENTS ARE NOT COMPLETED AND WILL NOT BE DONE UNTIL SATURDAY. CM ADVISED THAT HOSPICE IS READY TO ADMIT AND CAN DELIVER THE EQUIPMENT IN HOURS. SAMMY STATES THAT THEY NEED TIME TO GET PT'S HOME ACCESSIBLE FOR THE HOSPITAL BED AND WHEELCHAIR, AND THAT WILL BE SATURDAY. SAMMY REPORTS HE DISCUSSED THIS WITH DR. AMAYA YESTERDAY PRIOR TO NOTIFYING CM OF THE SATURDAY DISCHARGE DATE FOR HOSPICE. SAMMY REPORTS FAMILY WILL BE TO HOSPITAL SHORTLY. PT'S SON, SAMMY, REPORTS THAT THEY WILL NOT HAVE PT'S HOME READY TO RECEIVE PT UNTIL 06-08-18. CM WAITING FAMILY TO COMLETE ARRANGEMENTS TO RECEIVE PATIENT AT HOME, [facility] TO COMPLETE ARRANGEMENTS FOR MEDICAL EQUIPMENT DELIVERY TO PT'S HOME. FOR DISCHARGE 06-08-18, NOTIFY [facility], .WHEN PT LEAVES BY AMBULANCE, [facility] TO ADMIT PT UPON ARRIVAL AT HOME. Montez Tucker, CASE MANAGEMENT Appended by Montez Tucker on 06/06/2018 12:53 SLASH TRIMMER: CM SPOKE TO SAMMY HARDEN AT N[facility]ES ST[facility], SAMMY REPORTS THAT HE HAS TALKED TO HOSPICE AND THEY ARE NOW MAKING ARRANGEMENTS FOR PT TO DISCHARGE HOME TOMORROW, 06-07-18. CM SPOKE TO DANIS OF [facility], , WHO INFORMED CM THAT THEY ARE ORDERING EQUIPMENT FOR DELIVERY AND SET UP NOW. CM VERIFIED SOCIAL SECURITY NUMBER AND INSURANCE INFORMATION, FAXED FACE SHEET TO [facility] AT [phone]. FOR DISCHARGE ON 06-07-18, NOTIFY [facility], , WHEN PT LEAVES HOSPITAL BY AMBULANCE. FAX DISCHARGE INFORMATION TO [facility] AT [phone]. [facility] TO ADMIT PT UPON ARRIVAL AT HOME. MONTEZ TUCKER,CASE MANAGEMENT DCP- Discharge Planning Updated by [id number]: Montez Tucker on 06/05/18 3:[address] Patient Name: NILA HARDEN Encounter No: [id number] : 1935 Primary Insurance: MEDICARE A & B Anticipated DC Date: 06-05-2018 Planned Disposition: Home with Hospice External Planned Provider: [facility] [place] [facility] DCP follow-up note: CM SPOKE TO PT'S SON SAMMY, WHO HAS BEEN IN CONTACT WITH [facility]. SAMMY REPORTS THAT [facility] IS WAITING ON THE PAPERWORK FOR EVALUATION OF PT FOR HOSPICE ADMISSION AND ONCE EVALUATION IS DONE, THEY WILL ARRANGE DELIVERY OF MEDICAL EQUIPMENT. SAMMY REPORTS PLAN OF HAVING ALL ARRANGEMENTS WITH HOSPICE COMPLETED FOR PT TO GO HOME 06-08-18. CM CALLED DANIS OF [facility], , WHO VERIFIED RECEIVING REFERRAL FOR HOME HOSPICE PAPERWORK AND SHE HAS PROVIDED IT TO THE HOSPICE NURSE TO COMPLETE EVALUATION. CM WAITING [facility] TO COMPLETE ARRANGEMENTS FOR ACCEPTANCE AND MEDICAL EQUIPMENT DELIVERY TO PT'S HOME. Montez Tucker, CASE MANAGEMENT DCP- Discharge Planning Updated by [id number]: Montez Tucker on 06/05/18 12:[address] Patient Name: NILA HARDEN Admission Status: ER Accout number: [id number] Admission Date: 06-02-2018 : 1935 Admission Diagnosis:IRON DEFICIENCY ANEMIA, UNSPECIFIED Attending: KARRI AMAYA Current LOS: 3 Anticipated DC Date: 06-05-2018 Planned Disposition: Home with Hospice Primary Insurance: MEDICARE A & B PLANNED EXTERNAL PROVIDER: [facility] [place] [facility] Discharge Planning Comments: CM RECEIVED REQUEST TO SEE FAMILY REGARDING HOSPICE FOR PATIENT. CM MET WITH PT AND FAMILY IN ROOM TO DISCUSS DISCHARGE PLANNING AND NEEDS. NILA HARDEN provided verbal consent to discuss current and ongoing needs with/in the presence of: INES ZEYAD AND SAMMY HARDEN. PT WAS IN REHAB AT [facility] AND HAS HAD MULTIPLE ADMITS TO HOSPITAL AND REHAB RECENTLY. PT HAS INFORMED FAMILY THAT SHE WANTS TO GO HOME ON HOSPICE. PT TOLD CM THAT HER SON'S ARE MAKING DECISIONS NOW FOR HER AND THEY WILL BE MAKING ARRANGEMENTS FOR HER. CM PROVIDED HOSPICE LISTING, PT'S SON SAMMY INFORMED CM THAT THEY USED [facility] FOR PT'S SPOUSE AND WANT THEM NOW. CHOICE SIGNED FOR [facility]. IMPORTANT MESSAGE FROM MEDICARE PROVIDED AND EXPLAINED. CM SPOKE TO BEDSIDE NURSE, HOSPICE ORDER RECEIVED. CM CALLED [facility], , SPOKE TO DANIS WHO TOOK REFERRAL INFORMATION AND WILL HAVE HOSPICE NURSE CONTACT FAMILY AND ARRANGE ASSESSMENT OF PT AND DELIVERY OF MEDICAL EQUIPMENT FOR DISCHARGE HOME FOR HOSPICE ADMISSION ONCE PT ARRIVES AT HOME. CM FA[facility]ED REFERRAL TO [facility] AT [phone]. WAITING HOSPICE ADMISSION DETERMINATION AND DELIVERY OF ALL MEDICAL EQUIPMENT TO PT'S HOME BY [facility] FOR DISCHARGE HOME. Wafer Slicer: Montez Tucker DCPIA - Discharge Planning Initial Assessment Updated by [id number]: Montez Tucker on 06/05/18 1:42 pm * Is the patient Alert and Oriented? Yes * How many steps to enter\exit or inside your home? RAMP * PCP DR. BURGOS IN [place] * Pharmacy [facility] IN [place] * Preadmission Environment Detention Facility * Facility Name [facility] * ADLs Partial Dependent * Partial ADLs (Assistance needed) Ambulation Bathing Dressing Medication Management Toileting Transfers * Equipment Oxygen * Other Equipment HOME OXYGEN, PROVIDER IS SUJATHA * List name and contact numbers for known caregivers / representatives who currently or will assist patient after discharge: SAMMY HARDEN, SON, BETSY HARDEN, SON, ZEYAD HARDEN, SON , * Verbal permission to speak to the caregivers and representatives has been obtained from the patient. Yes * Community resources currently utilized None * Please name any agencies selected above. NONE * Additional services required to return to the preadmission environment? Yes * Can the patient safely return to the preadmission environment? Yes * Has this patient been hospitalized within the prior 30 days at any hospital? Yes Coverage Notice Reviewer: [id number] Danielle Tucker Notice Issued Date-Time: 06/05/2018 12:35 Notice Type: Patient Choice Letter Notice Delivered To: Family Member Relationship to Patient: Son Patient Intake Coordinator Name: SAMMY HARDEN Delivery Method: HAND - Hand Delivered Sonam Days: Prior Verbal Notification: Recipient Understood Notice: Yes Recipient Signature: Yes Med Rec Note Co-signed by Attending: Coverage Notice Comment: [facility] Reviewer: [id number] Danielle Tucker Notice Issued Date-Time: 06/05/2018 12:35 Notice Type: IM Discharge Notice Notice Delivered To: Family Member Relationship to Patient: Son Patient Intake Coordinator Name: SAMMY HARDEN Delivery Method: HAND - Hand Delivered Sonam Days: Prior Verbal Notification: Recipient Understood Notice: Yes Recipient Signature: Yes Med Rec Note Co-signed by Attending: Coverage Notice Comment: Last DP export: 06/06/18 4:32 pm Patient Name: FINANILA Page [id number] at 1710 All edits/amendments must be made on the electronic document DICTATION DATE: 06/07/181709 VISITOR SERVICES INFORMATION ASSISTANT: CODI 06/07/181709 RPT#: [id number] DC DATE:06/07/18 STATUS: DIS IN [facility] [address] [place] [address] END OF REPORT
--- NOTE | 2018-06-09 10:12 | MORECARE ---
CASE MANAGEMENT DISCHARGE SUMMARY PATIENT: NILA HARDEN UNIT: [id number] ADM DATE: 06/02/18 AGE: 82 : 31 SEX: F ROOM/BED: D.2135 AUTHOR: DEQUANDOC PHYSICIAN: REFERRING PHYSICIAN: KARRI AMAYA MD DATE OF SERVICE: 06/09/18 Discharge Plan Patient Name: NILA HARDEN Facility: [facility]:[place] : 1935 Planned Disposition: Home with Hospice Anticipated Discharge Date: 06/07/18 Discharge Date: 06/07/2018 Expected LOS: 5 Initial Reviewer: [id number] Initial Review Date: 06/02/2018 Generated: 06/09/18 11:12 am Comments DCP- Discharge Planning Updated by [email or web address]: Jolynn Palma on 06/07/18 4:[address] LATE ENTRY 1300 DISCHARGE TO HOME VIA AMBULANCE FOR ADMISSION WITH [facility]. DCP- Discharge Planning Updated by [id number]: Montez Tucker on 06/06/18 11:[address] Patient Name: NILA HARDEN Encounter No: [id number] : 1935 Primary Insurance: MEDICARE A & B Anticipated DC Date: 06-05-2018 Planned Disposition: Home with Hospice External [facility] DCP follow-up note: CM CALLED DANIS OF [facility], . CM ASKED WHAT THE DELAY IS FOR PT TO LEAVE AND WHY SATURDAY WAS THE DAY SPECIFIED FOR ARRANGEMENTS TO BE MADE. DANIS INFORMED CM THAT THE FAMILY ARE THE ONES THAT SPECIFIED SATURDAY AND THAT THEY WILL ORDER EQUIPMENT TODAY FOR SPECIFIED DELIVERY PER FAMILY REQUEST ON SATURDAY. IF THAT CHANGES, DANIS ASKED TO BE NOTIFIED STATING THEIR MEDICAL EQUIPMENT CAN BE DELIVERED AT ANY TIME, DAY OR NIGHT. CM NOTIFIED WHITNEY GONZALEZ. CM RECEIVED CALL FROM SAMMY FINA WHO STATED THAT [facility] CALLED AND TOLD HIM THAT PT IS DISCHARGING TODAY. CM INFORMED SAMMY THAT PT WAS DISCHARGED YESTERDAY AND THAT PT MAY LEAVE FOR HOSPICE ADMIT WHEN ALL ARRANGEMENTS ARE COMPLETED. SAMMY STATED THAT THE ARRANGEMENTS ARE NOT COMPLETED AND WILL NOT BE DONE UNTIL SATURDAY. CM ADVISED THAT HOSPICE IS READY TO ADMIT AND CAN DELIVER THE EQUIPMENT IN HOURS. SAMMY STATES THAT THEY NEED TIME TO GET PT'S HOME ACCESSIBLE FOR THE HOSPITAL BED AND WHEELCHAIR, AND THAT WILL BE SATURDAY. SAMMY REPORTS HE DISCUSSED THIS WITH DR. AMAYA YESTERDAY PRIOR TO NOTIFYING CM OF THE SATURDAY DISCHARGE DATE FOR HOSPICE. SAMMY REPORTS FAMILY WILL BE TO HOSPITAL SHORTLY. PT'S SON, SAMMY, REPORTS THAT THEY WILL NOT HAVE PT'S HOME READY TO RECEIVE PT UNTIL 06-08-18. CM WAITING FAMILY TO COMLETE ARRANGEMENTS TO RECEIVE PATIENT AT HOME, [facility] TO COMPLETE ARRANGEMENTS FOR MEDICAL EQUIPMENT DELIVERY TO PT'S HOME. FOR DISCHARGE 06-08-18, NOTIFY [facility], .WHEN PT LEAVES BY AMBULANCE, [facility] TO ADMIT PT UPON ARRIVAL AT HOME. Montez Tucker, CASE MANAGEMENT Appended by Montez Tucker on 06/06/2018 12:53 LEAD LAYING AND GLUING MACHINE OPERATOR: CM SPOKE TO SAMMY HARDEN AT [facility], SAMMY REPORTS THAT HE HAS TALKED TO HOSPICE AND THEY ARE NOW MAKING ARRANGEMENTS FOR PT TO DISCHARGE HOME TOMORROW, 06-07-18. CM SPOKE TO DANIS OF [facility], , WHO INFORMED CM THAT THEY ARE ORDERING EQUIPMENT FOR DELIVERY AND SET UP NOW. CM VERIFIED SOCIAL SECURITY NUMBER AND INSURANCE INFORMATION, FAXED FACE SHEET TO [facility] AT [phone]. FOR DISCHARGE ON 06-07-18, NOTIFY [facility], , WHEN PT LEAVES HOSPITAL BY AMBULANCE. FAX DISCHARGE INFORMATION TO [facility] AT [phone]. [facility] TO ADMIT PT UPON ARRIVAL AT HOME. MONTEZ TUCKER,CASE MANAGEMENT DCP- Discharge Planning Updated by [id number]: Montez Tucker on 06/05/18 3:[address] Patient Name: NILA HARDEN Encounter No: [id number] : 1935 Primary Insurance: MEDICARE A & B Anticipated DC Date: 06-05-2018 Planned Disposition: Home with Hospice External Planned Provider: [facility] DCP follow-up note: CM SPOKE TO PT'S SON SAMMY, WHO HAS BEEN IN CONTACT WITH [facility]. SAMMY REPORTS THAT [facility] IS WAITING ON THE PAPERWORK FOR EVALUATION OF PT FOR HOSPICE ADMISSION AND ONCE EVALUATION IS DONE, THEY WILL ARRANGE DELIVERY OF MEDICAL EQUIPMENT. SAMMY REPORTS PLAN OF HAVING ALL ARRANGEMENTS WITH HOSPICE COMPLETED FOR PT TO GO HOME 06-08-18. CM CALLED DANIS OF [facility], , WHO VERIFIED RECEIVING REFERRAL FOR HOME HOSPICE PAPERWORK AND SHE HAS PROVIDED IT TO THE HOSPICE NURSE TO COMPLETE EVALUATION. CM WAITING [facility] TO COMPLETE ARRANGEMENTS FOR ACCEPTANCE AND MEDICAL EQUIPMENT DELIVERY TO PT'S HOME. Montez Tucker, CASE MANAGEMENT DCP- Discharge Planning Updated by [id number]: Montez Tucker on 06/05/18 12:[address] Patient Name: NILA HARDEN Admission Status: ER Accout number: [id number] Admission Date: 06-02-2018 : 1935 Admission Diagnosis:IRON DEFICIENCY ANEMIA, UNSPECIFIED Attending: KARRI AMAYA Current LOS: 3 Anticipated DC Date: 06-05-2018 Planned Disposition: Home with Hospice Primary Insurance: MEDICARE A & B PLANNED EXTERNAL PROVIDER: [facility] Discharge Planning Comments: CM RECEIVED REQUEST TO SEE FAMILY REGARDING HOSPICE FOR PATIENT. CM MET WITH PT AND FAMILY IN ROOM TO DISCUSS DISCHARGE PLANNING AND NEEDS. NILA HARDEN provided verbal consent to discuss current and ongoing needs with/in the presence of: INES ZEYAD AND SAMMY HARDEN. PT [facility] AND HAS HAD MULTIPLE ADMITS TO HOSPITAL AND REHAB RECENTLY. PT HAS INFORMED FAMILY THAT SHE WANTS TO GO HOME ON HOSPICE. PT TOLD CM THAT HER SON'S ARE MAKING DECISIONS NOW FOR HER AND THEY WILL BE MAKING ARRANGEMENTS FOR HER. CM PROVIDED HOSPICE LISTING, PT'S SON SAMMY INFORMED CM THAT THEY USED [facility] FOR PT'S SPOUSE AND WANT THEM NOW. CHOICE SIGNED FOR [facility]. IMPORTANT MESSAGE FROM MEDICARE PROVIDED AND EXPLAINED. CM SPOKE TO BEDSIDE NURSE, HOSPICE ORDER RECEIVED. CM CALLED [facility], , SPOKE TO DANIS WHO TOOK REFERRAL INFORMATION AND WILL HAVE HOSPICE NURSE CONTACT FAMILY AND ARRANGE ASSESSMENT OF PT AND DELIVERY OF MEDICAL EQUIPMENT FOR DISCHARGE HOME FOR HOSPICE ADMISSION ONCE PT ARRIVES AT HOME. CM FAXED REFERRAL TO [facility] AT [phone]. WAITING HOSPICE ADMISSION DETERMINATION AND DELIVERY OF ALL MEDICAL EQUIPMENT TO PT'S HOME BY [facility] FOR DISCHARGE HOME. Foam Rubber Mixer: Montez Tucker DCPIA - Discharge Planning Initial Assessment Updated by [id number]: Montez Tucker on 06/05/18 1:42 pm * Is the patient Alert and Oriented? Yes * How many steps to enter\exit or inside your home? RAMP * PCP DR. BURGOS IN [place] * Pharmacy [facility] IN [place] * Preadmission Environment Snf Facility * Facility Name [facility] [facility] [facility] * ADLs Partial Dependent * Partial ADLs (Assistance needed) Ambulation Bathing Dressing Medication Management Toileting Transfers * Equipment Oxygen * Other Equipment HOME OXYGEN, PROVIDER IS SUJATHA * List name and contact numbers for known caregivers / representatives who currently or will assist patient after discharge: SAMMY HARDEN, SON, BETSY HARDEN, SON, ZEYAD HARDEN, SON , * Verbal permission to speak to the caregivers and representatives has been obtained from the patient. Yes * Community resources currently utilized None * Please name any agencies selected above. NONE * Additional services required to return to the preadmission environment? Yes * Can the patient safely return to the preadmission environment? Yes * Has this patient been hospitalized within the prior 30 days at any hospital? Yes Coverage Notice Reviewer: [id number] Danielle Tucker Notice Issued Date-Time: 06/05/2018 12:35 Notice Type: Patient Choice Letter Notice Delivered To: Family Member Relationship to Patient: Son Stator Tester Name: SAMMY HARDEN Delivery Method: HAND - Hand Delivered Sonam Days: Prior Verbal Notification: Recipient Understood Notice: Yes Recipient Signature: Yes Med Rec Note Co-signed by Attending: Coverage Notice Comment: [facility] Reviewer: [id number] Danielle Tucker Notice Issued Date-Time: 06/05/2018 12:35 Notice Type: IM Discharge Notice Notice Delivered To: Family Member Relationship to Patient: Son Stator Tester Name: SAMMY HARDEN Delivery Method: HAND - Hand Delivered Sonam Days: Prior Verbal Notification: Recipient Understood Notice: Yes Recipient Signature: Yes Med Rec Note Co-signed by Attending: Coverage Notice Comment: Last DP export: 06/07/18 4:10 pm Patient Name: FINANILA Page [id number] at 1012 All edits/amendments must be made on the electronic document DICTATION DATE: 06/09/18 1012 DOG BOARDER: CODI 06/09/18 1012 RPT#: [id number] DC DATE:06/07/18 STATUS: DIS IN [facility] [address] [place] [address] END OF REPORT
== END 2018-06-07 12:22 | disposition home health service (06) | DRG 381 ==
LOC: D.ER 15:02 → D.EDHOLD 15:49 → D.M2 15:49
PROVIDERS: Emergency Medicine; Internal Medicine Gastroenterology; ADMIT Internal Medicine Nephrology; ATTEND Internal Medicine Nephrology
PROC: 0DJ08ZZ Inspection of Upper Intestinal Tract, Via Natural or Artificial Opening Endoscopic (ICD-10-PCS; principal; 2018-06-04 13:49)
DX: K22.11 Ulcer of esophagus with bleeding (principal); D62 Acute posthemorrhagic anemia; J90 Pleural effusion, not elsewhere classified; D50.9 Iron deficiency anemia, unspecified; K55.21 Angiodysplasia of colon with hemorrhage; J44.9 Chronic obstructive pulmonary disease, unspecified; K21.0 Gastro-esophageal reflux disease with esophagitis; K44.9 Diaphragmatic hernia without obstruction or gangrene